=== PATIENT | female | born 1935 | race Caucasian/White ===

== ENCOUNTER → 2016-12-10 | Outpatient (CLI) | payer MEDICARE, OTHER | LOC: MW.CHFP 08:00 | CPT/HCPCS: G0463 ==

== ENCOUNTER 2017-01-30 13:57 | Emergency (ER) | payer MEDICARE, OTHER ==
--- NOTE | 2017-01-30 15:02 | EDM.PDOC ---
ED HPI ENT - General Chief Complaint: ENT Problem Stated Complaint: EAR ACHE Time Seen by Provider: 01/30/17 14:15 Source of Information: Reports: Patient History Limitations: Reports: No limitations - History of Present Illness INITIAL COMMENTS - FREE TEXT/NARRATIVE: History of present illness: [81-year-old female comes in with pain in left ear. Patient has had a known otitis externa which she is receiving treatment via her ENT. This includes oral antibiotic as well as antibiotic eardrops. Patient continues to have pain and is concerned that she perceives to have swelling in the inside of her mouth.] Review of systems: As per history of present illness and below otherwise all systems reviewed and negative. Past medical history: As per history of present illness and as reviewed below otherwise noncontributory. Surgical history: As per history of present illness and as reviewed below otherwise noncontributory. Social history: No reported history of drug or alcohol abuse. Family history: As per history of present illness and as reviewed below otherwise noncontributory. Physical exam: HEENT: Atraumatic, normocephalic, pupils reactive, negative for conjunctival pallor or scleral icterus, mucous membranes moist, throat clear, neck supple, nontender, trachea midline. Lungs: Clear to auscultation, breath sounds equal bilaterally, chest nontender. Heart: S1S2, regular, negative for clicks, rubs, or JVD. Abdomen: Soft, nondistended, nontender. Negative for masses or hepatosplenomegaly. Negative for costovertebral tenderness. Pelvis: Stable nontender. Genitourinary: Deferred. Rectal: Deferred. Extremities: Atraumatic, negative for cords or calf pain. Neurovascular unremarkable. Neuro: Awake, alert, oriented. Cranial nerves II through XII unremarkable. Cerebellum unremarkable. Motor and sensory unremarkable throughout. Exam nonfocal. Global assessment was benign no apparent abscesses and or edema noted. Patient does have a followup tomorrow with her ear nose and throat he continues to complain of pain we'll give a brief run of pain medication to assist patient to tolerate her protracted recovery of a an otitis externa. Diagnostics: [] Therapeutics: [] Impression: [unresolved otitis externa] Plan: [Pain medication, scheduled followup] Definitive disposition and diagnosis as appropriate pending reevaluation and review of above. - Related Data Allergies/ADRs: Allergies Allergy/AdvReac Type Severity Reaction Status Date / Time acetaminophen Allergy Other Verified 04/24/16 14:45 [From Darvocet-N] albuterol Allergy Other Verified 01/30/17 14:25 codeine Allergy Other Verified 01/30/17 14:25 gabapentin Allergy Other Verified 01/30/17 14:25 lisinopril Allergy Other Verified 01/30/17 14:25 meperidine HCl [From Demerol] Allergy Other Verified 01/30/17 14:25 oxycodone Allergy Other Verified 01/30/17 14:25 propoxyphene napsylate Allergy Other Verified 01/30/17 14:25 [From Darvocet-N] simvastatin Allergy Other Verified 01/30/17 14:25 Sulfa (Sulfonamide Allergy Other Verified 01/30/17 14:25 Antibiotics) Home Meds: Home Meds Aspirin [Halfprin] 81 mg PO DAILY 04/14/14 [History] Multivitamin with Minerals [Multiple Vitamin] 1 tab PO DAILY 04/14/14 [History] Past Medical History HEENT History: Reports: Cataract, Impaired vision, Other (see below) Other HEENT History: "dry ears" Cardiovascular History: Reports: Hypertension, Pacemaker, Prior cardiac arrest Respiratory History: Reports: None Gastrointestinal History: Reports: None Genitourinary History: Reports: None [employer] History: Reports: , Spontaneous Musculoskeletal History: Reports: RA Neurological History: Reports: None Psychiatric History: Reports: None Endocrine/Metabolic History: Reports: None Hematologic History: Reports: None Immunologic History: Reports: None Oncologic (Cancer) History: Reports: None Dermatologic History: Reports: None - Infectious Disease History Infectious Disease History: Reports: Chicken pox, Measles, Mumps, Pertussis ( whooping cough) - Past Surgical History Head Surgeries/Procedures: Reports: None HEENT Surgical History: Reports: Cataract surgery, Eye surgery, Tonsillectomy Cardiovascular Surgical History: Reports: Pacer GI Surgical History: Reports: Appendectomy Musculoskeletal Surgical History: Reports: Other (see below) Other Musculoskeletal Surgeries/Procedures:: back surgery Oncologic Surgical History: Reports: None Social & Family History - Family History Family Medical History: Noncontributory - Tobacco Use Smoking Status *Q: Never Smoker Second Hand Smoke Exposure: No - Caffeine Use Caffeine Use: Reports: Coffee, Tea Caffeine Use Comment: 3/day - Alcohol Use Days Per Week of Alcohol Use: 0 - Recreational Drug Use Recreational Drug Use: No Drug Use in Last 12 Months: No ED ROS ENT - Review of Systems Review Of Systems: See Below (History of present illness) ED EXAM, ENT - Physical Exam Exam: See Below (History of present illness) Course - Vital Signs Last Recorded V/S: Last Vital Signs Temp 37.1 C 01/30/17 13:59 Pulse 85 01/30/17 13:59 Resp 16 01/30/17 13:59 BP 143/78 H 01/30/17 13:59 Pulse Ox 98 01/30/17 13:59 Departure - Departure Time of Disposition: 15:01 Disposition: Home, Self-Care 01 Condition: good Clinical Impression: Otitis externa Qualifiers: Otitis externa type: unspecified type Laterality: left Chronicity: unspecified Qualified Code(s): H60.92 - Unspecified otitis externa, left ear Referrals: Bebe Banks MD [Primary Care Provider] - Forms: ED Department Discharge Additional Instructions: The following information is given to patients seen in the emergency department who are being discharged to home. This information is to outline your options for follow-up care. We provide all patients seen in our emergency department with a follow-up referral. The need for follow-up, as well as the timing and circumstances, are variable depending upon the specifics of your emergency department visit. If you don't have a primary care physician on staff, we will provide you with a referral. We always advise you to contact your personal physician following an emergency department visit to inform them of the circumstance of the visit and for follow-up with them and/or the need for any referrals to a consulting specialist. The emergency department will also refer you to a specialist when appropriate. This referral assures that you have the opportunity for follow-up care with a specialist. All of these measure are taken in an effort to provide you with optimal care, which includes your follow-up. Under all circumstances we always encourage you to contact your private physician who remains a resource for coordinating your care. When calling for follow-up care, please make the office aware that this follow-up is from your recent emergency room visit. If for any reason you are refused follow-up, please contact the [facility] Emergency Department at and asked to speak to the emergency department charge nurse. Continue to take your antibiotics as directed Continue taking your eardrops as directed May take pain medication prescribed as well as ibuprofen Take no more than 3200 mg of ibuprofen a day You have a scheduled followup with your ENT tomorrow, discussed with them plan of care as well as timelines for expected resolution Return to ED as needed as discussed
[2017-01-30 15:18] VITALS: BP 147/69
== END 2017-01-30 15:16 | disposition home or self-care (01) ==
LOC: MW.ED 13:57
DX: H60.92 Unspecified otitis externa, left ear (principal); I10 Essential (primary) hypertension; M06.9 Rheumatoid arthritis, unspecified; Z95.0 Presence of cardiac pacemaker; Z79.82 Long term (current) use of aspirin; Z88.2 Allergy status to sulfonamides; Z88.5 Allergy status to narcotic agent; Z88.6 Allergy status to analgesic agent; Z88.8 Allergy status to other drugs, medicaments and biological substances; Z98.49 Cataract extraction status, unspecified eye; Z90.49 Acquired absence of other specified parts of digestive tract; Z98.890 Other specified postprocedural states
CPT/HCPCS: 99282; 99283

== ENCOUNTER → 2017-01-31 | Outpatient (CLI) | payer MEDICARE, OTHER | LOC: MW.CHENT 08:00 | PROVIDERS: ATTEND Otolaryngology | DX: H60.90 Unspecified otitis externa, unspecified ear (principal); H60.00 Abscess of external ear, unspecified ear | CPT/HCPCS: 10160; 92504; G0463 ==

== ENCOUNTER 2017-02-03 21:21 | Emergency (ER) | payer MEDICARE, OTHER ==
--- NOTE | 2017-02-03 22:04 | EDM.PDOC ---
<Liliane Hummel - Last Filed: 02/03/17 21:58> ED HPI ENT - General Chief Complaint: ENT Problem Stated Complaint: PAIN LT EAR/PAIN THROAT Time Seen by Provider: 02/03/17 21:50 Source of Information: Reports: Patient History Limitations: Reports: No limitations - History of Present Illness INITIAL COMMENTS - FREE TEXT/NARRATIVE: HISTORY AND PHYSICAL: History of present illness: [Patient comes to the emergency room complaining of continued left ear pain. She 's been following the ENT specialist for the past 2 weeks for a boil to her left inner ear. This was apparently lanced earlier this week. She last saw the ENT this morning. She was advised to stop her current ear drops and start a new prescription. When patient went to the pharmacy to pick it up the new eardrops cost $220 which patient refused to fill. She was unable to reach the ENT this evening for a new or different prescription. She presents to the emergency room complaining of continued ear pain and occasional bloody drainage. Has not been prescribed any oral medications for antibiotics. Patient has a long list of medication allergies so has been taking ibuprofen every 3-4 hours in spite of being advised to not take as often by ENT.] Review of systems: As per history of present illness and below otherwise all systems reviewed and negative. Past medical history: As per history of present illness and as reviewed below otherwise noncontributory. Surgical history: As per history of present illness and as reviewed below otherwise noncontributory. Social history: No reported history of drug or alcohol abuse. Family history: As per history of present illness and as reviewed below otherwise noncontributory. Physical exam: HEENT: Atraumatic, normocephalic. Edentulous. mucous membranes moist, throat clear. Neck: Mildly shotty and tender L anterior cervical ymph nodes. Neck supple. Extremities: Atraumatic, negative for cords or calf pain. Neurovascular unremarkable. Neuro: Awake, alert, oriented. Cranial nerves II through XII unremarkable. Cerebellum unremarkable. Motor and sensory unremarkable throughout. Exam nonfocal. Diagnostics: [] Therapeutics: [] Impression: [] Plan: [] Definitive disposition and diagnosis as appropriate pending reevaluation and review of above. - Related Data Allergies/ADRs: Allergies Allergy/AdvReac Type Severity Reaction Status Date / Time acetaminophen Allergy Other Verified 02/03/17 21:35 [From Darvocet-N] albuterol Allergy Other Verified 02/03/17 21:35 codeine Allergy Other Verified 02/03/17 21:35 gabapentin Allergy Other Verified 02/03/17 21:35 lisinopril Allergy Other Verified 02/03/17 21:35 meperidine HCl [From Demerol] Allergy Other Verified 02/03/17 21:35 oxycodone Allergy Other Verified 02/03/17 21:35 propoxyphene napsylate Allergy Other Verified 02/03/17 21:35 [From Darvocet-N] simvastatin Allergy Other Verified 02/03/17 21:35 Sulfa (Sulfonamide Allergy Other Verified 02/03/17 21:35 Antibiotics) tramadol Allergy Headache Verified 02/03/17 21:36 Home Meds: Home Meds Aspirin [Halfprin] 81 mg PO DAILY 04/14/14 [History] Multivitamin with Minerals [Multiple Vitamin] 1 tab PO DAILY 04/14/14 [History] Past Medical History HEENT History: Reports: Cataract, Impaired vision, Other (see below) Other HEENT History: "dry ears" Cardiovascular History: Reports: Hypertension, Pacemaker, Prior cardiac arrest Respiratory History: Reports: None Gastrointestinal History: Reports: None Genitourinary History: Reports: None [employer] WORK[employer] History: Reports: , Spontaneous Musculoskeletal History: Reports: RA Neurological History: Reports: None Psychiatric History: Reports: None Endocrine/Metabolic History: Reports: None Hematologic History: Reports: None Immunologic History: Reports: None Oncologic (Cancer) History: Reports: None Dermatologic History: Reports: None - Infectious Disease History Infectious Disease History: Reports: None - Past Surgical History Head Surgeries/Procedures: Reports: None HEENT Surgical History: Reports: Cataract surgery, Eye surgery, Tonsillectomy Cardiovascular Surgical History: Reports: Pacer GI Surgical History: Reports: Appendectomy Musculoskeletal Surgical History: Reports: Other (see below) Other Musculoskeletal Surgeries/Procedures:: back surgery Oncologic Surgical History: Reports: None Social & Family History - Family History Family Medical History: Noncontributory - Tobacco Use Smoking Status *Q: Never Smoker Second Hand Smoke Exposure: No - Caffeine Use Caffeine Use: Reports: Coffee Caffeine Use Comment: 3/day - Alcohol Use Days Per Week of Alcohol Use: 0 - Recreational Drug Use Recreational Drug Use: No Drug Use in Last 12 Months: No Course - Vital Signs Last Recorded V/S: Last Vital Signs Temp 36.7 C 02/03/17 21:36 Pulse 88 02/03/17 21:36 Resp 16 02/03/17 21:36 BP 173/84 H 02/03/17 21:36 Pulse Ox 96 02/03/17 21:36 - Orders/Labs/Meds Meds: Medications Discontinued Medications Generic Name Dose Route Start Last Admin Trade Name Patsy PRN Reason Stop Dose Admin Ketorolac Tromethamine 60 mg 02/03/17 22:19 02/03/17 22:37 Toradol IM 02/03/17 22:20 60 mg ONETIME ONE Administration Departure - Departure Disposition: Home, Self-Care 01 Clinical Impression: Otitis externa Instructions: Earache Referrals: Bebe Banks MD [Primary Care Provider] - Forms: ED Department Discharge Additional Instructions: Continue antibiotics as prescribed and followup with Dr. Banks tomorrow. [facility] staff will call you in the morning for an appointment time and instruction. Continue your pain control regimen effort requires alteration discuss that with Dr. Banks and your DrValentin tomorrow in the morning. <Charlie Ugarte - Last Filed: 02/03/17 22:48> ED HPI ENT - General Source of Information: Reports: Patient History Limitations: Reports: No limitations - History of Present Illness INITIAL COMMENTS - FREE TEXT/NARRATIVE: Addendum: ER attending note Charlie Ugarte M.D. 81-year-old female with multiple narcotic and other medication intolerances, now presents emergent primary complaining of pain in her left ear. She has had ongoing treatment for an infection in her left external auditory canal that your nose and throat Dr. Dr. Bebe Banks. Patient was even seen by Dr. Banks in her office today and was prescribed eardrops. Patient attempted to get the ureter prescription because $220 and she was angry and feeling like this was a ridiculous march so she did not get it. She continues to have discomfort so she came to the emergency department. No fevers chills sweats or shaking chills. No headache or stiff neck. No local swelling or neck swelling. Patient has no new symptoms whatsoever. She is just requesting pain medicine when asked what she feels like she can tolerate she said "I don't care-- just give me something "patient appears to have a baseline of anger and dissatisfaction but she has no new acute condition that requires further intervention. Case discussed with Dr. Banks who is intimately familiar with this patient and her multiple allergies and she states that the patient is or even treated with by mouth antibiotics, further pharmacologic intervention is not necessary at this time and she will see the patient in the office in the morning. On patient's exam shows some drainage in her left EAC. No mastoid tenderness. No cervical adenopathy. Supple neck with normal painless range of motion and no asymmetry or soft tissue swelling. Patient is alert well groomed and seems slightly angry in general but it appears this may be the patient's baseline of general dissatisfaction. ED ROS ENT - Review of Systems Review Of Systems: See Below (Her history of present illness) ED EXAM, ENT - Physical Exam Exam: See Below (History of present illness) Departure - Departure Time of Disposition: 22:20 Condition: good
[2017-02-03] MEDS ORDERED: Ketorolac 60 MG/2 ML SDV IM ONE (22:19)
[2017-02-03 23:05] VITALS: BP 161/76
== END 2017-02-03 22:50 | disposition home or self-care (01) ==
LOC: MW.ED 21:21
DX: H60.92 Unspecified otitis externa, left ear (principal); Z79.82 Long term (current) use of aspirin; Z79.899 Other long term (current) drug therapy; Z95.0 Presence of cardiac pacemaker; Z98.49 Cataract extraction status, unspecified eye; Z90.49 Acquired absence of other specified parts of digestive tract; Z98.890 Other specified postprocedural states; Z88.2 Allergy status to sulfonamides; Z88.5 Allergy status to narcotic agent; Z88.8 Allergy status to other drugs, medicaments and biological substances; H60.90 Unspecified otitis externa, unspecified ear; H60.00 Abscess of external ear, unspecified ear
CPT/HCPCS: 92504; 96372; 99282; G0463; J1885; 99283

== ENCOUNTER → 2017-02-03 | Outpatient (CLI) | payer OTHER, MEDICARE | LOC: MW.CHENT 08:00 | PROVIDERS: ATTEND Otolaryngology | DX: H60.90 Unspecified otitis externa, unspecified ear (principal); H60.00 Abscess of external ear, unspecified ear | CPT/HCPCS: 92504; G0463 ==

== ENCOUNTER → 2017-02-07 | Outpatient (CLI) | payer MEDICARE, OTHER | LOC: MW.CHENT 13:58 | PROVIDERS: ATTEND Otolaryngology | DX: H92.03 Otalgia, bilateral (principal); H60.90 Unspecified otitis externa, unspecified ear | CPT/HCPCS: 87070; 87077; 87186 ==

== ENCOUNTER → 2017-02-09 | Outpatient (CLI) | payer MEDICARE, OTHER ==
[2017-02-09 10:03] LABS: CHLORIDE,CL 101 mmol/L (98-110); SODIUM,NA 135 mmol/L (136-146)
--- NOTE | 2017-02-10 09:29 | CT ---
EXAMINATION: CT temporal bones with and without contrast HISTORY: Left ear pain COMPARISON: None TECHNIQUE: Axial CT images obtained through the temporal bones before and following the administrati on of 50 mL of Isovue-370 in the left antecubital fossa. Coronal and sagittal reconstructions obtain ed. FINDINGS: The mastoid air cells and middle ears are clear bilaterally. The cochlea and semicircular canals appear normal. The internal auditory canals are symmetric the ossicles appear normal bilatera lly. The scutum appears preserved bilaterally. There is opacification of the left external auditory canal demonstrated which demonstrates mild enhancement. This does not appear to to extend to the tym panic membrane. There is no definite underlying erosion of the underlying osseous cortex. The tempor omandibular joints appear normal. The visualized intracranial compartments appear normal. The orbits and globes are symmetric. Bone mi neralization is normal. The visualized paranasal sinuses are grossly clear. IMPRESSION: 1. Enhancing mass involving the mid to the external aspect of the left external auditory canal witho ut erosion of the underlying bony cortex.
== END ==
LOC: MW.CHFP 09:23
PROVIDERS: ATTEND Emergency Medicine
DX: H92.02 Otalgia, left ear (principal); I10 Essential (primary) hypertension; H93.8X2 Other specified disorders of left ear
CPT/HCPCS: 36415; 70482; 80048; G0463

== ENCOUNTER → 2017-02-25 | Outpatient (CLI) | payer MEDICARE, OTHER | LOC: MW.CHFP 08:00 | PROVIDERS: ATTEND Emergency Medicine | DX: H60.90 Unspecified otitis externa, unspecified ear (principal); H92.02 Otalgia, left ear | CPT/HCPCS: G0463 ==

== ENCOUNTER → 2017-03-04 | Outpatient (CLI) | payer OTHER, MEDICARE | LOC: MW.CHFP 14:09 | PROVIDERS: ATTEND Emergency Medicine | DX: H92.02 Otalgia, left ear (principal); H93.8X2 Other specified disorders of left ear | CPT/HCPCS: 36415; 85025; 85652; 86140; G0463 ==

== ENCOUNTER → 2017-03-11 | Outpatient (CLI) | payer OTHER, MEDICARE | LOC: MW.CHFP 08:00 | PROVIDERS: ATTEND Emergency Medicine | DX: H93.8X2 Other specified disorders of left ear (principal); H92.02 Otalgia, left ear | CPT/HCPCS: G0463 ==

== ENCOUNTER 2019-03-14 13:04 | Observation (INO) | payer MEDICARE, OTHER ==
[2019-03-14] MEDS ORDERED: Sodium Chloride 0.9% 10 ML Syringe FLUSH PRN (13:30)
[2019-03-14] MEDS ORDERED: Sodium Chloride 0.9% 2.5 ML Syringe FLUSH PRN (13:30)
--- NOTE | 2019-03-14 13:33 | EDM.PDOC ---
ED HPI GENERAL MEDICAL PROBLEM - General Chief Complaint: Cardiovascular Problem Stated Complaint: HIGH B/P Time Seen by Provider: 03/14/19 13:09 Source of Information: Reports: Patient History Limitations: Reports: No Limitations - History of Present Illness INITIAL COMMENTS - FREE TEXT/NARRATIVE: History of present illness: []Patient has a history of high blood pressure and noted that her blood pressure climbing over an hour to 190s over 90. From 12:30 to 1 today she also had abdominal pain that was radiating to her epigastrium and mid chest. Has had 3 heart attacks in the past and states that this is similar to how it felt during one of her heart attacks. Patient did not have any chest pain and does not have any chest pain now. She did state that she felt a dizzy and lightheaded. Patient's symptom lasted approximately 15-20 minutes. Patient states she has chronic lower abdominal pain and noted that her pants were hard to put on today to swelling. Review of systems: As per history of present illness and below otherwise all systems reviewed and negative. Past medical history: As per history of present illness and as reviewed below otherwise noncontributory. Surgical history: As per history of present illness and as reviewed below otherwise noncontributory. Social history: No reported history of drug or alcohol abuse. Family history: As per history of present illness and as reviewed below otherwise noncontributory. Physical exam: General: Well developed, well nourished in NAD HEENT: Atraumatic, normocephalic, pupils reactive, negative for conjunctival pallor or scleral icterus, mucous membranes moist, throat clear, neck supple, nontender, trachea midline. Lungs: Clear to auscultation, breath sounds equal bilaterally, chest nontender. Heart: S1S2, regular, negative for clicks, rubs, or JVD. Abdomen: NABS, Soft, nondistended, mild diffuse tenderness, no rebound or guarding. Negative for masses or hepatosplenomegaly. Negative for costovertebral tenderness. Pelvis: Stable nontender. Genitourinary: Deferred. Rectal: Deferred. Extremities: Atraumatic, negative for cords or calf pain. Neurovascular unremarkable. Neuro: Awake, alert, oriented. Cranial nerves II through XII unremarkable. Cerebellum unremarkable. Motor and sensory unremarkable throughout. Exam nonfocal. Skin:warm and dry Diagnostics: EKG, CBC, chemistry, troponin, chest x-ray Therapeutics: None ED Course: Stable Impression: Uncontrolled Hypertension, chest pain Prescriptions: Plan: Admit for arms rule out OK Definitive disposition and diagnosis as appropriate pending reevaluation and review of above. abdominal Pain Score (Numeric/FACES): 2 - Related Data Allergies Allergy/AdvReac Type Severity Reaction Status Date / Time acetaminophen Allergy Other Verified 02/03/17 21:35 [From Darvocet-N] albuterol Allergy Other Verified 02/03/17 21:35 codeine Allergy Other Verified 02/03/17 21:35 gabapentin Allergy Other Verified 02/03/17 21:35 lisinopril Allergy Other Verified 02/03/17 21:35 meperidine HCl [From Demerol] Allergy Other Verified 02/03/17 21:35 oxycodone Allergy Other Verified 02/03/17 21:35 propoxyphene napsylate Allergy Other Verified 02/03/17 21:35 [From Darvocet-N] simvastatin Allergy Other Verified 02/03/17 21:35 Sulfa (Sulfonamide Allergy Other Verified 02/03/17 21:35 Antibiotics) tramadol Allergy Headache Verified 02/03/17 21:36 Home Meds: Home Meds Aspirin [Halfprin] 81 mg PO DAILY 04/14/14 [History] Multivitamin with Minerals [Multiple Vitamin] 1 tab PO DAILY 04/14/14 [History] Losartan [Cozaar] 12.5 mg PO BID 03/14/19 [History] Metoprolol Succinate [Toprol Xl] 12.5 mg PO BID 03/14/19 [History] Past Medical History HEENT History: Reports: Cataract, Impaired Vision, Other (See Below) Other HEENT History: "dry ears" Cardiovascular History: Reports: Hypertension, [place], Pacemaker, Prior Cardiac Arrest, Stents Other Cardiovascular History: (3) [place] Respiratory History: Reports: None Gastrointestinal History: Reports: None Genitourinary History: Reports: None 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: , 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 Musculoskeletal History: Reports: RA Neurological History: Reports: None Psychiatric History: Reports: None Endocrine/Metabolic History: Reports: None Hematologic History: Reports: None Immunologic History: Reports: None Oncologic (Cancer) History: Reports: None Dermatologic History: Reports: None - Infectious Disease History Infectious Disease History: Reports: Chicken Pox, Measles, Mumps - Past Surgical History Head Surgeries/Procedures: Reports: None HEENT Surgical History: Reports: Cataract Surgery, Eye Surgery, Tonsillectomy GI Surgical History: Reports: Appendectomy Musculoskeletal Surgical History: Reports: Other (See Below) Oncologic Surgical History: Reports: None Social & Family History - Family History Family Medical History: Noncontributory - Tobacco Use Smoking Status *Q: Unknown Ever Smoked - Caffeine Use Caffeine Use: Reports: Coffee Caffeine Use Comment: 3/day - Recreational Drug Use Recreational Drug Use: No ED ROS GENERAL - Review of Systems Review Of Systems: ROS reveals no pertinent complaints other than HPI. ED EXAM, GENERAL - Physical Exam Exam: See Below (See history of present illness) Course - Vital Signs Last Recorded V/S: Last Vital Signs Temp 97.6 F 03/14/19 13:18 Pulse 70 03/14/19 13:18 Resp 18 03/14/19 13:18 BP 174/72 H 03/14/19 13:18 Pulse Ox 96 03/14/19 13:18 - Orders/Labs/Meds Orders: Active Orders 24 hr Category Date Time Status Patient Status [ADT] Stat ADT 03/14/19 14:06 Ordered EKG Documentation Completion [RC] STAT Care 03/14/19 13:30 Active Sodium Chloride 0.9% [Saline Flush] Med 03/14/19 13:30 Active 10 ml FLUSH ASDIRECTED PRN Sodium Chloride 0.9% [Saline Flush] Med 03/14/19 13:30 Active 2.5 ml FLUSH ASDIRECTED PRN Saline Lock Insert [OM.PC] Stat Oth 03/14/19 13:30 Ordered Medication Orders Sodium Chloride (Saline Flush) 10 ml FLUSH ASDIRECTED PRN PRN Reason: Keep Vein Open Sodium Chloride (Saline Flush) 2.5 ml FLUSH ASDIRECTED PRN PRN Reason: Keep Vein Open Labs: Laboratory Tests 03/14/19 03/14/19 Range/Units 13:13 13:13 WBC 9.48 (4.0-11.0) K/uL RBC 4.91 (4.30-5.90) M/uL Hgb 14.8 (12.0-16.0) g/dL Hct 44.2 (36.0-46.0) % MCV 90.0 (80.0-98.0) fL MCH 30.1 (27.0-32.0) pg MCHC 33.5 (31.0-37.0) g/dL RDW Std Deviation 44.9 (28.0-62.0) fl RDW Coeff of Hari 14 (11.0-15.0) % Plt Count 222 (150-400) K/uL MPV 9.70 (7.40-12.00) fL Neut % (Auto) 79.1 (48.0-80.0) % Lymph % (Auto) 13.2 L (16.0-40.0) % [place] % (Auto) 6.4 (0.0-15.0) % Eos % (Auto) 1.2 (0.0-7.0) % Baso % (Auto) 0.1 (0.0-1.5) % Neut # (Auto) 7.5 H (1.4-5.7) K/uL Lymph # (Auto) 1.3 (0.6-2.4) K/uL [place] # (Auto) 0.6 (0.0-0.8) K/uL Eos # (Auto) 0.1 (0.0-0.7) K/uL Baso # (Auto) 0.0 (0.0-0.1) K/uL Nucleated RBC % 0.0 /100WBC Nucleated RBCs # 0 K/uL Sodium 136 (136-145) mmol/L Potassium 4.3 (3.5-5.1) mmol/L Chloride 100 (98-107) mmol/L Carbon Dioxide 24.0 (21.0-32.0) mmol/L BUN 13 (7.0-18.0) mg/dL Creatinine 0.7 (0.6-1.0) mg/dL Est Cr Clr Drug Dosing 50.55 mL/min Estimated GFR (MDRD) > 60.0 ml/min Glucose 100 (74-106) mg/dL Calcium 9.3 (8.5-10.1) mg/dL Total Bilirubin 0.6 (0.2-1.0) mg/dL AST 30 (15-37) IU/L ALT 36 (14-63) IU/L Alkaline Phosphatase 41 L (46-116) U/L Troponin I < 0.050 (0.000-0.056) ng/mL Total Protein 7.0 (6.4-8.2) g/dL Albumin 3.9 (3.4-5.0) g/dL Globulin 3.1 (2.6-4.0) g/dL Albumin/Globulin Ratio 1.3 (0.9-1.6) Meds: Medications Generic Name Dose Route Start Last Admin Trade Name Freq PRN Reason Stop Dose Admin Sodium Chloride 10 ml 03/14/19 13:30 Saline Flush FLUSH ASDIRECTED PRN Keep Vein Open Sodium Chloride 2.5 ml 03/14/19 13:30 Saline Flush FLUSH ASDIRECTED PRN Keep Vein Open Departure - Departure Time of Disposition: 14:07 Disposition: Refer to Observation Condition: Good Clinical Impression: Chest pain Qualifiers: Chest pain type: unspecified Qualified Code(s): R07.9 - Chest pain, unspecified Referrals: Aneudy Wilde MD [Primary Care Provider] - Forms: ED Department Discharge - My Orders Last 24 Hours: My Active Orders 03/14/19 13:30 EKG Documentation Completion [RC] STAT Sodium Chloride 0.9% [Saline Flush] 10 ml FLUSH ASDIRECTED PRN Sodium Chloride 0.9% [Saline Flush] 2.5 ml FLUSH ASDIRECTED PRN Saline Lock Insert [OM.PC] Stat 03/14/19 14:06 Patient Status [ADT] Stat - Assessment/Plan Last 24 Hours: My Active Orders 03/14/19 13:30 EKG Documentation Completion [RC] STAT Sodium Chloride 0.9% [Saline Flush] 10 ml FLUSH ASDIRECTED PRN Sodium Chloride 0.9% [Saline Flush] 2.5 ml FLUSH ASDIRECTED PRN Saline Lock Insert [OM.PC] Stat 03/14/19 14:06 Patient Status [ADT] Stat
--- NOTE | 2019-03-14 13:51 | CR ---
EXAMINATION: Portable chest radiograph. HISTORY: Shortness of breath. Comparison: 09/22/2014. FINDINGS: The trachea is midline. The cardiomediastinal silhouette is stable. Chronic interstitial prominence and hyperinflation. Left-sided ICD is noted. Aortic calcifications. No focal consolidation, pleural effusion, or pneumothorax. Osseous structures appear osteopenic. Degenerative changes noted within the thoracic spine and shoulders. IMPRESSION: No acute cardiopulmonary process.
[2019-03-14 14:01] LABS: CHLORIDE,CL 100 mmol/L (98-107); SODIUM,NA 136 mmol/L (136-145)
[2019-03-14] MEDS ORDERED: Aspirin 325 MG Tab PO ONE (14:11)
--- NOTE | 2019-03-14 17:12 | PCM.HP ---
H&P History of Present Illness - General Date of Service: 03/15/19 Admit Problem/Dx: Admission Diagnosis/Problem Admission Diagnosis/Problem Chest pain Source of Information: Patient History Limitations: Reports: No Limitations - History of Present Illness Initial Comments - Free Text/Narative: The patient is an 83-year-old lady who had presented to the emergency department with a history of hypertension. The patient had noticed that her blood pressure have been markedly elevated in the 190s systolic her to presentation. The patient says that she is had 3 heart attacks in the past and she also had some vague chest pain with this as well. Patient has had some epigastric abdominal pain which had radiated into her chest. She said that this is not the same as her previous heart attacks. The patient says that her symptoms lasted approximately half an hour. The patient also has a history of chronic abdominal pain and she says that her pants were difficult to buckle up without increasing her abdominal pain. The patient has denied any fever or chills. She has had some vomiting but no nausea. Patient reports that she does have some dizziness and lightheadedness. Onset of Symptoms: Reports: Gradual Duration of Symptoms: Reports: Day(s): Location: Reports: Head, Neck Quality: Reports: Ache, Throbbing Severity: Moderate Improves with: Reports: None Worsens with: Reports: None Associated Symptoms: Reports: No Other Symptoms abdominal Pain Score (Numeric/FACES): 2 - Related Data Allergies/Adverse Reactions: Allergies Allergy/AdvReac Type Severity Reaction Status Date / Time albuterol Allergy Other Verified 02/03/17 21:35 codeine Allergy Other Verified 02/03/17 21:35 gabapentin Allergy Other Verified 02/03/17 21:35 lisinopril Allergy Other Verified 02/03/17 21:35 meperidine HCl [From Demerol] Allergy Other Verified 02/03/17 21:35 oxycodone Allergy Other Verified 02/03/17 21:35 propoxyphene napsylate Allergy Other Verified 02/03/17 21:35 [From Darvocet-N] simvastatin Allergy Other Verified 02/03/17 21:35 Sulfa (Sulfonamide Allergy Other Verified 02/03/17 21:35 Antibiotics) tramadol Allergy Headache Verified 02/03/17 21:36 Home Medications: Home Meds Aspirin [Halfprin] 81 mg PO DAILY 04/14/14 [History] Multivitamin with Minerals [Multiple Vitamin] 1 tab PO DAILY 04/14/14 [History] Losartan [Cozaar] 12.5 mg PO BID 03/14/19 [History] Metoprolol Succinate [Toprol Xl] 12.5 mg PO BID 03/14/19 [History] Past Medical History HEENT History: Reports: Cataract, Impaired Vision, Other (See Below) Other HEENT History: "dry ears" Cardiovascular History: Reports: Hypertension, [place], Pacemaker, Prior Cardiac Arrest, Stents Other Cardiovascular History: (3) [place] Respiratory History: Reports: None Gastrointestinal History: Reports: None Genitourinary History: Reports: None 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: , 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 Musculoskeletal History: Reports: Osteoarthritis, RA Neurological History: Reports: None Psychiatric History: Reports: None Endocrine/Metabolic History: Reports: None Hematologic History: Reports: None Immunologic History: Reports: None Oncologic (Cancer) History: Reports: None Dermatologic History: Reports: None - Infectious Disease History Infectious Disease History: Reports: Chicken Pox, Measles, Mumps - Past Surgical History Head Surgeries/Procedures: Reports: None HEENT Surgical History: Reports: Cataract Surgery, Eye Surgery, Tonsillectomy GI Surgical History: Reports: Appendectomy Musculoskeletal Surgical History: Reports: Other (See Below) Oncologic Surgical History: Reports: None Social & Family History - Family History Family Medical History: Noncontributory - Tobacco Use Smoking Status *Q: Never Smoker Second Hand Smoke Exposure: No - Caffeine Use Caffeine Use: Reports: Coffee, Tea Caffeine Use Comment: 3/day - Recreational Drug Use Recreational Drug Use: No H&P Review of Systems - Review of Systems: Review Of Systems: See Below General: Reports: Weakness HEENT: Reports: Headaches Pulmonary: Reports: No Symptoms Cardiovascular: Reports: Chest Pain Gastrointestinal: Reports: Abdominal Pain, Vomiting Genitourinary: Reports: No Symptoms Musculoskeletal: Reports: Neck Pain, Hand Pain, Joint Pain Skin: Reports: No Symptoms Psychiatric: Reports: No Symptoms Neurological: Reports: No Symptoms Hematologic/Lymphatic: Reports: No Symptoms Immunologic: Reports: No Symptoms Exam - Exam Exam: See Below - Vital Signs Vital Signs: Last Vital Signs Temp 36.8 C 03/14/19 15:56 Pulse 67 03/14/19 15:56 Resp 15 03/14/19 15:56 BP 167/66 H 03/14/19 15:56 Pulse Ox 97 03/14/19 15:56 Weight: 50.439 kg - Exam Quality Assessment: No: Supplemental Oxygen General: Alert, Oriented, Cooperative HEENT: Conjunctiva Clear, EACs Clear, EOMI, Nares Patent, Pupils Equal, PERRLA. No: Mucosa Moist & [place] (Dry) Neck: Supple (Non-tender), Trachea Midline Lungs: Clear to Auscultation, Normal Respiratory Effort Cardiovascular: Regular Rate, Regular Rhythm GI/Abdominal Exam: Normal Bowel Sounds, Soft, Non-Tender, No Distention Back Exam: Normal Inspection (Age appropriate). No: Vertebral Tenderness Extremities: Joint Swelling, Limited Range of Motion Skin: Warm, Dry, Intact Neurological: Cranial Nerves Intact Psychiatric: Alert, Normal Affect, Normal Mood - Patient Data Lab Results Last 24 hrs: Laboratory Results - last 24 hr 03/14/19 03/14/19 Range/Units 13:13 13:13 WBC 9.48 (4.0-11.0) K/uL RBC 4.91 (4.30-5.90) M/uL Hgb 14.8 (12.0-16.0) g/dL Hct 44.2 (36.0-46.0) % MCV 90.0 (80.0-98.0) fL MCH 30.1 (27.0-32.0) pg MCHC 33.5 (31.0-37.0) g/dL RDW Std Deviation 44.9 (28.0-62.0) fl RDW Coeff of Hari 14 (11.0-15.0) % Plt Count 222 (150-400) K/uL MPV 9.70 (7.40-12.00) fL Neut % (Auto) 79.1 (48.0-80.0) % Lymph % (Auto) 13.2 L (16.0-40.0) % [place] % (Auto) 6.4 (0.0-15.0) % Eos % (Auto) 1.2 (0.0-7.0) % Baso % (Auto) 0.1 (0.0-1.5) % Neut # (Auto) 7.5 H (1.4-5.7) K/uL Lymph # (Auto) 1.3 (0.6-2.4) K/uL [place] # (Auto) 0.6 (0.0-0.8) K/uL Eos # (Auto) 0.1 (0.0-0.7) K/uL Baso # (Auto) 0.0 (0.0-0.1) K/uL Nucleated RBC % 0.0 /100WBC Nucleated RBCs # 0 K/uL Sodium 136 (136-145) mmol/L Potassium 4.3 (3.5-5.1) mmol/L Chloride 100 (98-107) mmol/L Carbon Dioxide 24.0 (21.0-32.0) mmol/L BUN 13 (7.0-18.0) mg/dL Creatinine 0.7 (0.6-1.0) mg/dL Est Cr Clr Drug Dosing 50.55 mL/min Estimated GFR (MDRD) > 60.0 ml/min Glucose 100 (74-106) mg/dL Calcium 9.3 (8.5-10.1) mg/dL Total Bilirubin 0.6 (0.2-1.0) mg/dL AST 30 (15-37) IU/L ALT 36 (14-63) IU/L Alkaline Phosphatase 41 L (46-116) U/L Troponin I < 0.050 (0.000-0.056) ng/mL Total Protein 7.0 (6.4-8.2) g/dL Albumin 3.9 (3.4-5.0) g/dL Globulin 3.1 (2.6-4.0) g/dL Albumin/Globulin Ratio 1.3 (0.9-1.6) Result Diagrams: 03/15/19 06:00 03/15/19 06:00 - Problem List (1) Chest pain SNOMED Code(s): 52413363 ICD Code: R07.9 - CHEST PAIN, UNSPECIFIED Status: Resolved Priority: High Current Visit: Yes (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 SNOMED Code(s): 179355625 ICD Code: M47.812 - SPONDYLOSIS W/O MYELOPATHY OR RADICULOPATHY, CERVICAL REGION; M79.2 - NEURALGIA AND NEURITIS, UNSPECIFIED Status: Chronic Priority : Medium Current Visit: Yes (3) Osteoarthritis involving multiple joints on both sides of body SNOMED Code(s): 443130296 ICD Code: M15.9 - POLYOSTEOARTHRITIS, UNSPECIFIED Status: Chronic Priority: Medium Current Visit: Yes (4) Acute coronary syndrome SNOMED Code(s): 934973981 ICD Code: I24.9 - ACUTE ISCHEMIC HEART DISEASE, UNSPECIFIED Status: Acute Priority: High Current Visit: Yes Problem List Initiated/Reviewed/Updated: Yes Orders Last 24hrs: Active Orders 24 hr Category Date Time Status Patient Status [ADT] Stat ADT 03/14/19 14:06 Active EKG Documentation Completion [RC] STAT Care 03/14/19 13:30 Active Sodium Chloride 0.9% [Saline Flush] Med 03/14/19 13:30 Active 10 ml FLUSH ASDIRECTED PRN Sodium Chloride 0.9% [Saline Flush] Med 03/14/19 13:30 Active 2.5 ml FLUSH ASDIRECTED PRN Saline Lock Insert [OM.PC] Stat Oth 03/14/19 13:30 Ordered Medication Orders Sodium Chloride (Saline Flush) 10 ml FLUSH ASDIRECTED PRN PRN Reason: Keep Vein Open Sodium Chloride (Saline Flush) 2.5 ml FLUSH ASDIRECTED PRN PRN Reason: Keep Vein Open Assessment/Plan Comment:: The patient is an 83-year-old lady who has been admitted secondary to concern for anginal equivalents with regards to vague chest pain and upper abdominal pain. The patient has a history of coronary artery disease with 3 previous MIs. I've ordered troponins every 6 hours 2. Patient also be kept on heart healthy diet. The patient also has as a primary concern for headache as well as her neck pain. She does have rather severe multi-joint osteoarthritis. She'll likely need to have the CT scan later. The patient has been encouraged to ambulate. I've also ordered repeat laboratory studies for the morning. The patient will kept on DVT prophylaxis consisting of Lovenox. The patient should be appropriate for discharge tomorrow or 2 days.
[2019-03-14] MEDS ORDERED: oxyCODONE 5 MG Tab PO PRN (17:58)
[2019-03-14] MEDS ORDERED: Enoxaparin 40 MG/0.4 ML Syringe SUBCUT SCH (18:00)
[2019-03-14] MEDS: Acetaminophen 325 MG Tab PO PRN (18:35)
[2019-03-14] MEDS: Metoprolol Succinate 25 MG Tab.ER PO SCH (20:17)
[2019-03-14] MEDS: Losartan 50 MG Tab PO SCH (20:18)
[2019-03-15 06:50] LABS: CHLORIDE,CL 106 mmol/L (98-107); SODIUM,NA 142 mmol/L (136-145)
[2019-03-15] MEDS: Losartan 50 MG Tab PO SCH (08:17)
[2019-03-15] MEDS: Metoprolol Succinate 25 MG Tab.ER PO SCH (08:18)
[2019-03-15] MEDS: Acetaminophen 325 MG Tab PO PRN (08:20)
[2019-03-15] MEDS ORDERED: Aspirin 81 MG Tab.EC PO SCH (09:00)
[2019-03-15 12:50] VITALS: BP 159/69
--- NOTE | 2019-03-15 14:42 | CT ---
EXAMINATION: CT cervical spine HISTORY: Rule out stenosis COMPARISON: 01/16/2018 TECHNIQUE: Axial CT imaging obtained through the cervical spine without contrast. Coronal and sagittal reconstructions obtained. FINDINGS: Minimal anterolisthesis of C3 on C4. Otherwise the cervical spinal alignment is normal. Vertebral body heights appear maintained. Bone mineralization is grossly normal. Facet arthritic changes noted throughout the cervical spine. This case narrowing noted from C5 to T1. There is no fracture or acute osseous abnormality. Paravertebral soft tissues appear normal. Mild carotid artery calcifications. Lung apices are clear. C2-C3: Grossly unremarkable. C3-C4: Small diffuse pseudobulge without significant spinal canal stenosis. Mild bilateral neural foraminal stenosis. C4-C5: Moderate diffuse osteophyte disc complex with at least moderate spinal canal stenosis. Moderate bilateral neural foraminal stenosis. C5-C6: Moderate diffuse osteophyte disc complex with at least moderate spinal canal stenosis. Moderate bilateral neural foraminal stenosis. C6-C7: Moderate diffuse disc bulge asymmetric to the right with at least moderate spinal canal stenosis. Moderate to severe right and moderate left neural foraminal stenosis. C7-T1: Mild anterolisthesis. No significant spinal canal or neural foraminal stenosis. IMPRESSION: 1. Multilevel degenerative disc disease and degenerative changes noted throughout the cervical spine with individual details above.
--- NOTE | 2019-03-15 15:51 | PCM.DCSUM1 ---
Discharge Summary - Hospital Course Diagnosis: Stroke: No - Discharge Data Discharge Date: 03/15/19 Discharge Disposition: Home, Self-Care 01 Condition: Good - Discharge Diagnosis/Problem(s) (1) Chest pain SNOMED Code(s): 96222045 ICD Code: R07.9 - CHEST PAIN, UNSPECIFIED Status: Resolved Priority: High Current Visit: Yes (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 SNOMED Code(s): 833485604 ICD Code: M47.812 - SPONDYLOSIS W/O MYELOPATHY OR RADICULOPATHY, CERVICAL REGION; M79.2 - NEURALGIA AND NEURITIS, UNSPECIFIED Status: Chronic Priority : Medium Current Visit: Yes (3) Osteoarthritis involving multiple joints on both sides of body SNOMED Code(s): 882221615 ICD Code: M15.9 - POLYOSTEOARTHRITIS, UNSPECIFIED Status: Chronic Priority: Medium Current Visit: Yes (4) Acute coronary syndrome SNOMED Code(s): 060648820 ICD Code: I24.9 - ACUTE ISCHEMIC HEART DISEASE, UNSPECIFIED Status: Acute Priority: High Current Visit: Yes - Patient Summary/Data Hospital Course: The patient is an 83-year-old lady who had presented to the emergency department out of concern for hypertension and was also noted to have some atypical chest pain. The patient's blood pressure had been elevated around 190 mmHg systolic at her presentation. Patient says that she has had 3 heart attacks in the past. Her primary concern over the past couple of days have been neck pain with associated headache. Patient's chest pain had essentially resolved. On examination the patient was noted to have severe arthritis of her minor and major joints. This was noted to be bilaterally. The patient on examination also had some crepitus of her C-spine. A CT scan was obtained of the patient's cervical spine. An MRI was not possible as the patient had a pacemaker. In addition to the cervical spine pain the patient had a headache with dizziness. CT scan obtained showed that the patient had moderately diffuse osteophytic disc complex with moderate spinal stenosis at C4-C5, C5-C6 C6-C7 with severe right to moderate left neural foraminal stenosis. As a result of the patient's pain is been recommended that she follow-up with neurosurgery as an outpatient for possible treatment. The patient also had 3 sets of troponins which were nondetectable. Continue monitoring had revealed no specific cardiac event. The patient otherwise has been tolerating her diet. She is recommended continue with her heart healthy diet as tolerated. The patient is also to have activity as tolerated. She has been recommended to follow-up with her primary care physician as well as neurology as scheduled. She has been hemodynamically stable and she is discharged from acute hospitalization with recommendations listed above. - Patient Instructions Diet: Heart Healthy Diet Activity: As Tolerated Notify Provider of: Increased Pain - Discharge Plan *PRESCRIPTION DRUG MONITORING PROGRAM REVIEWED*: No *COPY OF PRESCRIPTION DRUG MONITORING REPORT IN PATIENT LUISA: No Home Medications: Home Meds Aspirin [Halfprin] 81 mg PO DAILY 04/14/14 [History] Multivitamin with Minerals [Multiple Vitamin] 1 tab PO DAILY 04/14/14 [History] Losartan [Cozaar] 12.5 mg PO BID 03/14/19 [History] Metoprolol Succinate [Toprol Xl] 12.5 mg PO BID 03/14/19 [History] Oxygen Therapy Mode: Room Air Patient Handouts: Spinal Stenosis, [id number] Forms: ED Department Discharge Referrals: Binh Summers MD [Resident] - 03/27/19 2:30 pm - Discharge Summary/Plan Comment DC Time >30 min.: Yes - General Info Date of Service: 03/15/19 Admission Dx/Problem (Free Text: Admission Diagnosis/Problem Admission Diagnosis/Problem Chest pain, cervicogenic cephalgia Functional Status: Reports: Pain Controlled - Review of Systems General: Reports: No Symptoms HEENT: Reports: No Symptoms Pulmonary: Reports: No Symptoms Cardiovascular: Reports: No Symptoms Gastrointestinal: Reports: No Symptoms Genitourinary: Reports: No Symptoms Musculoskeletal: Reports: Neck Pain Skin: Reports: No Symptoms Neurological: Reports: No Symptoms Psychiatric: Reports: No Symptoms - Patient Data Vitals - Most Recent: Last Vital Signs Temp 36.7 C 03/15/19 12:00 Pulse 78 03/15/19 12:00 Resp 18 03/15/19 12:00 BP 159/69 H 03/15/19 12:00 Pulse Ox 95 03/15/19 12:00 Weight - Most Recent: 50.439 kg I&O - Last 24 hours: Intake & Output 03/15/19 03/15/19 03/15/19 06:59 14:59 22:59 Intake Total 650 120 Output Total 1100 Balance -450 120 Lab Results - Last 24 hrs: Laboratory Results - last 24 hr 03/14/19 03/15/19 03/15/19 Range/Units 18:28 00:50 06:00 WBC 6.00 (4.0-11.0) K/uL RBC 4.76 (4.30-5.90) M/uL Hgb 14.3 (12.0-16.0) g/dL Hct 43.0 (36.0-46.0) % MCV 90.3 (80.0-98.0) fL MCH 30.0 (27.0-32.0) pg MCHC 33.3 (31.0-37.0) g/dL RDW Std Deviation 44.6 (28.0-62.0) fl RDW Coeff of Hari 14 (11.0-15.0) % Plt Count 186 (150-400) K/uL MPV 9.50 (7.40-12.00) fL Neut % (Auto) 53.8 (48.0-80.0) % Lymph % (Auto) 32.5 (16.0-40.0) % [place] % (Auto) 10.7 (0.0-15.0) % Eos % (Auto) 2.7 (0.0-7.0) % Baso % (Auto) 0.3 (0.0-1.5) % Neut # (Auto) 3.2 (1.4-5.7) K/uL Lymph # (Auto) 2.0 (0.6-2.4) K/uL [place] # (Auto) 0.6 (0.0-0.8) K/uL Eos # (Auto) 0.2 (0.0-0.7) K/uL Baso # (Auto) 0.0 (0.0-0.1) K/uL Nucleated RBC % 0.0 /100WBC Nucleated RBCs # 0 K/uL Sodium (136-145) mmol/L Potassium (3.5-5.1) mmol/L Chloride (98-107) mmol/L Carbon Dioxide (21.0-32.0) mmol/L BUN (7.0-18.0) mg/dL Creatinine (0.6-1.0) mg/dL Est Cr Clr Drug Dosing mL/min Estimated GFR (MDRD) ml/min Glucose (74-106) mg/dL Calcium (8.5-10.1) mg/dL Total Bilirubin (0.2-1.0) mg/dL AST (15-37) IU/L ALT (14-63) IU/L Alkaline Phosphatase (46-116) U/L Troponin I < 0.050 < 0.050 (0.000-0.056) ng/mL Total Protein (6.4-8.2) g/dL Albumin (3.4-5.0) g/dL Globulin (2.6-4.0) g/dL Albumin/Globulin Ratio (0.9-1.6) / Range/Units 06:00 WBC (4.0-11.0) K/uL RBC (4.30-5.90) M/uL Hgb (12.0-16.0) g/dL Hct (36.0-46.0) % MCV (80.0-98.0) fL MCH (27.0-32.0) pg MCHC (31.0-37.0) g/dL RDW Std Deviation (28.0-62.0) fl RDW Coeff of Hari (11.0-15.0) % Plt Count (150-400) K/uL MPV (7.40-12.00) fL Neut % (Auto) (48.0-80.0) % Lymph % (Auto) (16.0-40.0) % [place] % (Auto) (0.0-15.0) % Eos % (Auto) (0.0-7.0) % Baso % (Auto) (0.0-1.5) % Neut # (Auto) (1.4-5.7) K/uL Lymph # (Auto) (0.6-2.4) K/uL [place] # (Auto) (0.0-0.8) K/uL Eos # (Auto) (0.0-0.7) K/uL Baso # (Auto) (0.0-0.1) K/uL Nucleated RBC % /100WBC Nucleated RBCs # K/uL Sodium 142 (136-145) mmol/L Potassium 5.2 H (3.5-5.1) mmol/L Chloride 106 (98-107) mmol/L Carbon Dioxide 29.4 (21.0-32.0) mmol/L BUN 17 (7.0-18.0) mg/dL Creatinine 0.8 (0.6-1.0) mg/dL Est Cr Clr Drug Dosing 43.92 mL/min Estimated GFR (MDRD) > 60.0 ml/min Glucose 86 (74-106) mg/dL Calcium 9.1 (8.5-10.1) mg/dL Total Bilirubin 0.5 (0.2-1.0) mg/dL AST 30 (15-37) IU/L ALT 36 (14-63) IU/L Alkaline Phosphatase 34 L (46-116) U/L Troponin I (0.000-0.056) ng/mL Total Protein 6.0 L (6.4-8.2) g/dL Albumin 3.3 L (3.4-5.0) g/dL Globulin 2.7 (2.6-4.0) g/dL Albumin/Globulin Ratio 1.2 (0.9-1.6) Med Orders - Current: Current Medications Acetaminophen (Tylenol) 650 mg PO Q4H PRN PRN Reason: Pain (Mild 1-3)/fever Last Admin: 03/15/19 08:20 Dose: 650 mg Aspirin (Halfprin) 81 mg PO DAILY [facility] Last Admin: 03/15/19 08:20 Dose: 81 mg Enoxaparin Sodium (Lovenox) 40 mg SUBCUT Q24H [facility] Last Admin: 03/14/19 18:37 Dose: 40 mg Losartan Potassium (Cozaar) 12.5 mg PO BID [facility] Last Admin: 03/15/19 08:17 Dose: 12.5 mg Metoprolol Succinate (Toprol Xl) 12.5 mg PO BID [facility] Last Admin: 03/15/19 08:18 Dose: 12.5 mg Oxycodone HCl (Oxycodone) 5 mg PO Q4H PRN PRN Reason: Pain (moderate 4-6) Sodium Chloride (Saline Flush) 10 ml FLUSH ASDIRECTED PRN PRN Reason: Keep Vein Open Sodium Chloride (Saline Flush) 2.5 ml FLUSH ASDIRECTED PRN PRN Reason: Keep Vein Open Discontinued Medications Aspirin (Aspirin) 325 mg PO ONETIME ONE Stop: 03/14/19 14:12 Last Admin: 03/14/19 14:49 Dose: 325 mg - Exam Quality Assessment: Denies: Supplemental Oxygen General: Reports: Alert, Oriented, Cooperative HEENT: Reports: Pupils Equal, Pupils Reactive, EOMI, Mucous Membr. Moist/[place] Neck: Reports: Supple, Trachea Midline Lungs: Reports: Clear to Auscultation, Normal Respiratory Effort Cardiovascular: Reports: Regular Rate, Regular Rhythm, No Murmurs GI/Abdominal Exam: Normal Bowel Sounds, No Distention Back Exam: Reports: Vertebral Tenderness (Cervical spine) Extremities: No: Normal Inspection (Severe osteoarthritis minor joints both hands) Skin: Reports: Warm, Dry, Intact Neurological: Reports: No New Focal Deficit Psy/Mental Status: Reports: Alert, Normal Affect, Normal Mood
== END 2019-03-15 15:30 | disposition home or self-care (01) ==
LOC: MW.ED 13:04 → MW.MS 14:37
PROVIDERS: ADMIT Internal Medicine; ATTEND Internal Medicine
DX: R07.89 Other chest pain (principal); I24.9 Acute ischemic heart disease, unspecified; I10 Essential (primary) hypertension; I25.2 Old myocardial infarction; I25.10 Atherosclerotic heart disease of native coronary artery without angina pectoris; M47.812 Spondylosis without myelopathy or radiculopathy, cervical region; M15.9 Polyosteoarthritis, unspecified; M48.02 Spinal stenosis, cervical region; Z88.5 Allergy status to narcotic agent; Z95.0 Presence of cardiac pacemaker; Z79.82 Long term (current) use of aspirin; Z79.899 Other long term (current) drug therapy
CPT/HCPCS: 36415; 71045; 72125; 80053; 84484; 85025; 93005; 99285; A9270; J1650; 96372; 99283; G0378

== ENCOUNTER 2021-02-08 12:15 | Observation (INO) | payer MEDICARE, OTHER ==
--- NOTE | 2021-02-08 12:43 | EDM.PDOC ---
ED HPI GENERAL MEDICAL PROBLEM - General Chief Complaint: Chest Pain Stated Complaint: CHEST PAIN Time Seen by Provider: 02/08/21 12:16 Source of Information: Reports: Patient History Limitations: Reports: No Limitations - History of Present Illness INITIAL COMMENTS - FREE TEXT/NARRATIVE: Patient is an 85-year-old female with a history of CAD with stents and pacemaker presents today for chest pain. Patient states that the pain is located on the left side. Patient states the pain does not radiate. Patient states that today the pain is made worse with movement. Patient also states that in the past she would take a few deep breath and the pain will resolve. She has had chest pain on and off for the past week but today the pain lasted a little longer than normal. Patient denies any nausea vomiting fever chills. Patient states that she took nitro before she came in but did not relieve the pain. Patient is a nitro is 2017 has been for some time. Patient has never stated the nitro that she normally has headache this time not suffer any headaches or other symptoms. chest Pain Score (Numeric/FACES): 5 - Related Data Allergies Allergy/AdvReac Type Severity Reaction Status Date / Time albuterol Allergy Other Verified 02/08/21 12:24 codeine Allergy Other Verified 02/08/21 12:24 gabapentin Allergy Other Verified 02/08/21 12:24 lisinopril Allergy Other Verified 02/08/21 12:24 meperidine HCl [From Demerol] Allergy Other Verified 02/08/21 12:24 oxycodone Allergy Other Verified 02/08/21 12:24 propoxyphene napsylate Allergy Other Verified 02/08/21 12:24 [From Darvocet-N] simvastatin Allergy Other Verified 02/08/21 12:24 Sulfa (Sulfonamide Allergy Other Verified 02/08/21 12:24 Antibiotics) tramadol Allergy Headache Verified 02/08/21 12:24 Home Meds: Home Meds Aspirin [Halfprin] 81 mg PO DAILY 04/14/14 [History] Multivitamin with Minerals [Multiple Vitamin] 1 tab PO DAILY 04/14/14 [History] Losartan [Cozaar] 12.5 mg PO BID 03/14/19 [History] Metoprolol Succinate [Toprol Xl] 12.5 mg PO BID 03/14/19 [History] Past Medical History HEENT History: Reports: Cataract, Impaired Vision, Other (See Below) Other HEENT History: "dry ears" Cardiovascular History: Reports: Hypertension, RI, Pacemaker, Prior Cardiac Arrest, Stents Other Cardiovascular History: (3) RI Respiratory History: Reports: None Gastrointestinal History: Reports: None Genitourinary History: Reports: None [employer] History: Reports: , Spontaneous Musculoskeletal History: Reports: Osteoarthritis, RA Neurological History: Reports: None Psychiatric History: Reports: None Endocrine/Metabolic History: Reports: None Hematologic History: Reports: None Immunologic History: Reports: None Oncologic (Cancer) History: Reports: None Dermatologic History: Reports: None - Infectious Disease History Infectious Disease History: Reports: Chicken Pox, Measles, Mumps - Past Surgical History Head Surgeries/Procedures: Reports: None HEENT Surgical History: Reports: Cataract Surgery, Eye Surgery, Tonsillectomy GI Surgical History: Reports: Appendectomy Musculoskeletal Surgical History: Reports: Other (See Below) Oncologic Surgical History: Reports: None Social & Family History - Family History Family Medical History: No Pertinent Family History - Caffeine Use Caffeine Use: Reports: Coffee, Tea Caffeine Use Comment: 3/day ED ROS GENERAL - Review of Systems Review Of Systems: See Below Constitutional: Reports: No Symptoms HEENT: Reports: No Symptoms Respiratory: Reports: No Symptoms Cardiovascular: Reports: Chest Pain Endocrine: Reports: No Symptoms GI/Abdominal: Reports: No Symptoms : Reports: No Symptoms Musculoskeletal: Reports: No Symptoms Skin: Reports: No Symptoms Neurological: Reports: No Symptoms Psychiatric: Reports: No Symptoms Hematologic/Lymphatic: Reports: No Symptoms Immunologic: Reports: No Symptoms ED EXAM, GENERAL - Physical Exam Exam: See Below Exam Limited By: No Limitations General Appearance: Alert, WD/WN, No Apparent Distress Head: Atraumatic, Normocephalic Respiratory/Chest: No Respiratory Distress, Lungs Clear, Normal Breath Sounds, No Accessory Muscle Use Cardiovascular: Normal Peripheral Pulses, Regular Rate, Rhythm GI/Abdominal: Normal Bowel Sounds, Soft, Non-Tender Back Exam: Normal Inspection, Full Range of Motion, NT Extremities: Normal Inspection, Normal Range of Motion, Non-Tender Neurological: Alert, Oriented, CN II-XII Intact #1 Interpretation EKG Date: 02/08/21 Time: 12:10 Rhythm: Other (atrial snsed ventricular paced) QRS: Wide Course - Vital Signs Last Recorded V/S: Last Vital Signs Temp 97.2 F 02/08/21 12:16 Pulse 72 02/08/21 13:45 Resp 16 02/08/21 13:45 BP 138/62 02/08/21 13:45 Pulse Ox 97 02/08/21 13:45 - Orders/Labs/Meds Orders: Active Orders 24 hr Category Date Time Status EKG Documentation Completion [RC] STAT Care 02/08/21 12:39 Active TROPONIN I [CHEM] Stat Lab 02/08/21 14:45 Ordered Labs: Laboratory Tests 02/08/21 02/08/21 02/08/21 Range/Units 12:21 12:21 12:21 WBC 12.76 H (4.0-11.0) K/uL RBC 4.71 (4.30-5.90) M/uL Hgb 14.3 (12.0-16.0) g/dL Hct 43.3 (36.0-46.0) % MCV 91.9 (80.0-98.0) fL MCH 30.4 (27.0-32.0) pg MCHC 33.0 (31.0-37.0) g/dL RDW Std Deviation 46.1 (28.0-62.0) fl RDW Coeff of Hari 14 (11.0-15.0) % Plt Count 300 (150-400) K/uL MPV 10.00 (7.40-12.00) fL Neut % (Auto) 77.4 (48.0-80.0) % Lymph % (Auto) 14.8 L (16.0-40.0) % [place] % (Auto) 6.3 (0.0-15.0) % Eos % (Auto) 1.3 (0.0-7.0) % Baso % (Auto) 0.2 (0.0-1.5) % Neut # (Auto) 9.9 H (1.4-5.7) K/uL Lymph # (Auto) 1.9 (0.6-2.4) K/uL [place] # (Auto) 0.8 (0.0-0.8) K/uL Eos # (Auto) 0.2 (0.0-0.7) K/uL Baso # (Auto) 0.0 (0.0-0.1) K/uL Nucleated RBC % 0.0 /100WBC Nucleated RBCs # 0 K/uL APTT 23.8 (18.6-31.3) SEC Sodium 138 (136-145) mmol/L Potassium 4.3 (3.5-5.1) mmol/L Chloride 102 (98-107) mmol/L Carbon Dioxide 24.8 (21.0-32.0) mmol/L BUN 17 (7.0-18.0) mg/dL Creatinine 0.9 (0.6-1.0) mg/dL Est Cr Clr Drug Dosing 33.65 mL/min Estimated GFR (MDRD) 59.8 ml/min Glucose 102 (74-106) mg/dL Calcium 9.0 (8.5-10.1) mg/dL Magnesium 2.0 (1.8-2.4) mg/dL Total Bilirubin 0.5 (0.2-1.0) mg/dL AST 23 (15-37) IU/L ALT 32 (14-63) IU/L Alkaline Phosphatase 66 (46-116) U/L Creatine Kinase 96 (26-308) U/L Troponin I < 0.050 (0.000-0.056) ng/mL Total Protein 6.7 (6.4-8.2) g/dL Albumin 3.4 (3.4-5.0) g/dL Globulin 3.3 (2.6-4.0) g/dL Albumin/Globulin Ratio 1.0 (0.9-1.6) Lipase 125 (73-393) U/L SARS-CoV-2 RNA (OSEI) (NEGATIVE) 02/08/21 Range/Units 12:51 WBC (4.0-11.0) K/uL RBC (4.30-5.90) M/uL Hgb (12.0-16.0) g/dL Hct (36.0-46.0) % MCV (80.0-98.0) fL MCH (27.0-32.0) pg MCHC (31.0-37.0) g/dL RDW Std Deviation (28.0-62.0) fl RDW Coeff of Hari (11.0-15.0) % Plt Count (150-400) K/uL MPV (7.40-12.00) fL Neut % (Auto) (48.0-80.0) % Lymph % (Auto) (16.0-40.0) % [place] % (Auto) (0.0-15.0) % Eos % (Auto) (0.0-7.0) % Baso % (Auto) (0.0-1.5) % Neut # (Auto) (1.4-5.7) K/uL Lymph # (Auto) (0.6-2.4) K/uL [place] # (Auto) (0.0-0.8) K/uL Eos # (Auto) (0.0-0.7) K/uL Baso # (Auto) (0.0-0.1) K/uL Nucleated RBC % /100WBC Nucleated RBCs # K/uL APTT (18.6-31.3) SEC Sodium (136-145) mmol/L Potassium (3.5-5.1) mmol/L Chloride (98-107) mmol/L Carbon Dioxide (21.0-32.0) mmol/L BUN (7.0-18.0) mg/dL Creatinine (0.6-1.0) mg/dL Est Cr Clr Drug Dosing mL/min Estimated GFR (MDRD) ml/min Glucose (74-106) mg/dL Calcium (8.5-10.1) mg/dL Magnesium (1.8-2.4) mg/dL Total Bilirubin (0.2-1.0) mg/dL AST (15-37) IU/L ALT (14-63) IU/L Alkaline Phosphatase (46-116) U/L Creatine Kinase (26-308) U/L Troponin I (0.000-0.056) ng/mL Total Protein (6.4-8.2) g/dL Albumin (3.4-5.0) g/dL Globulin (2.6-4.0) g/dL Albumin/Globulin Ratio (0.9-1.6) Lipase (73-393) U/L SARS-CoV-2 RNA (OSEI) NEGATIVE (NEGATIVE) Meds: Medications Discontinued Medications Generic Name Dose Route Start Last Admin Trade Name Freq PRN Reason Stop Dose Admin Aspirin 162 mg 02/08/21 13:46 02/08/21 13:54 Aspirin 81 Mg Tab.Ec PO 02/08/21 13:47 Not Given ONETIME ONE Aspirin Confirm 02/08/21 13:50 02/08/21 13:54 Aspirin 81 Mg Tab.Chew Administered 02/08/21 13:51 162 mg Dose Administration 162 mg .ROUTE .STK-MED ONE Departure - Departure Time of Disposition: 14:01 Disposition: Admitted As Inpatient 66 Condition: Good Clinical Impression: Chest pain Qualifiers: Chest pain type: unspecified Qualified Code(s): R07.9 - Chest pain, unspecified Forms: ED Department Discharge Sepsis Event Note (ED) - Evaluation Sepsis Screening Result: No Definite Risk - Focused Exam Vital Signs: Vital Signs Temp Pulse Resp BP Pulse Ox 02/08/21 13:45 72 16 138/62 97 02/08/21 13:15 70 16 134/54 L 97 02/08/21 12:16 97.2 F 79 18 173/96 H 96 - My Orders Last 24 Hours: My Active Orders 02/08/21 12:39 EKG Documentation Completion [RC] STAT 02/08/21 14:45 TROPONIN I [CHEM] Stat - Assessment/Plan Last 24 Hours: My Active Orders 02/08/21 12:39 EKG Documentation Completion [RC] STAT 02/08/21 14:45 TROPONIN I [CHEM] Stat Plan: Is an 85-year-old female who presents today for chest pain. Patient has a cardiac history heart score is is 4. Patient will likely require admission for troponin trending.
[2021-02-08 12:56] LABS: BLOOD UREA NITROGEN,BUN 17 mg/dL (7.0-18.0); CARBON DIOXIDE,CO2 24.8 mmol/L (21.0-32.0); CHLORIDE,CL 102 mmol/L (98-107); GLUCOSE RANDOM 102 mg/dL (74-106); LIPASE 125 U/L (73-393); POTASSIUM,K 4.3 mmol/L (3.5-5.1); SODIUM,NA 138 mmol/L (136-145)
--- NOTE | 2021-02-08 13:45 | CR ---
INDICATION: Chest pain TECHNIQUE: Two view chest. FINDINGS: Normal cardiac mediastinal silhouette. Left cardiac pacer: Left posterior rib fractures. No pneumothorax. Seen only on the lateral view is possible atelectasis or subtle infiltrates posteriorly. Dictated by Jess Decker MD @ Feb 08 2021 1:42PM Signed by Dr. Jess Decker @ Feb 08 2021 1:43PM
[2021-02-08] MEDS ORDERED: Aspirin 81 MG Tab.EC PO ONE (13:46)
[2021-02-08] MEDS ORDERED: Aspirin 81 MG Tab.Chew ONE (13:50)
[2021-02-08] MEDS ORDERED: Ondansetron 4 MG/2 ML SDV IVPUSH PRN (16:54)
[2021-02-08] MEDS ORDERED: Acetaminophen 325 MG Tab PO PRN (16:56)
--- NOTE | 2021-02-08 19:09 | PCM.HP.2 ---
H&P History of Present Illness - General Date of Service: 02/08/21 Admit Problem/Dx: Admission Diagnosis/Problem Admission Diagnosis/Problem Chest pain in adult - History of Present Illness Initial Comments - Free Text/Narative: Patient is an 85-year-old female with a history of CAD with stents, h/o cardiac arrest, and pacemaker and defibrillator presents today for chest pain. Patient states that the pain is located on the left side and started this morning. Patient states the pain does not radiate. Patient states that today the pain is made worse with movement and deep breaths. Patient also states that in the past she would take a few deep breath and the pain will resolve but this time pain was persistent. She has had chest pain on and off for the past week which would resolve. Patient denies any nausea vomiting fever chills. Patient states that she took nitro which was and also her baby aspirin before she came in but did not relieve the pain, patient eventually drove herself to ER. Patients pain resolved by the tome she came to ER. EKG was done which didnt show any acute STEMI, showed paced rhythm, troponin was negative. Patient states she has a follow up with her cardiology by the end of this month, she is also due to get her defibrillator examined. Patient was admitted for ACS rule out. chest Pain Score (Numeric/FACES): 5 - Related Data Allergies/Adverse Reactions: Allergies Allergy/AdvReac Type Severity Reaction Status Date / Time albuterol Allergy Other Verified 02/08/21 16:36 codeine Allergy Other Verified 02/08/21 16:36 gabapentin Allergy Other Verified 02/08/21 16:36 lisinopril Allergy Other Verified 02/08/21 16:36 meperidine HCl [From Demerol] Allergy Other Verified 02/08/21 16:36 oxycodone Allergy Other Verified 02/08/21 16:36 propoxyphene napsylate Allergy Other Verified 02/08/21 16:36 [From Darvocet-N] simvastatin Allergy Other Verified 02/08/21 16:36 Sulfa (Sulfonamide Allergy Other Verified 02/08/21 16:36 Antibiotics) tramadol Allergy Headache Verified 02/08/21 16:36 Home Medications: Home Meds Aspirin [Halfprin] 81 mg PO DAILY 04/14/14 [History] Multivitamin with Minerals [Multiple Vitamin] 1 tab PO DAILY 04/14/14 [History] Losartan [Cozaar] 12.5 mg PO BID 03/14/19 [History] Metoprolol Succinate [Toprol Xl] 12.5 mg PO BID 03/14/19 [History] predniSONE [predniSONE 5 MG/5 ML] 5 mg PO 02/08/21 [History] Past Medical History HEENT History: Reports: Cataract, Impaired Vision, Otitis Media, Other (See Below) Other HEENT History: "dry ears" Cardiovascular History: Reports: Hypertension, ID, Pacemaker, Prior Cardiac Arrest, Stents Other Cardiovascular History: (3) ID Respiratory History: Reports: Asthma Gastrointestinal History: Reports: None Genitourinary History: Reports: None 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: , 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 Musculoskeletal History: Reports: Osteoarthritis, RA Neurological History: Reports: None Psychiatric History: Reports: None Endocrine/Metabolic History: Reports: None Hematologic History: Reports: Anemia Other Hematologic History: pt been on Iron pill since she was 22 yrs old Immunologic History: Reports: None Oncologic (Cancer) History: Reports: None Dermatologic History: Reports: None - Infectious Disease History Infectious Disease History: Reports: Chicken Pox, Measles, Mumps, Pertussis (Whooping Cough) - Past Surgical History Head Surgeries/Procedures: Reports: Other (See Below) HEENT Surgical History: Reports: Cataract Surgery, Eye Surgery, Tonsillectomy Cardiovascular Surgical History: Reports: Pacer, Other (See Below) Other Cardiovascular Surgeries/Procedures: Implanted Defibrilator Respiratory Surgical History: Reports: None GI Surgical History: Reports: Appendectomy Musculoskeletal Surgical History: Reports: Carpal Tunnel, Other (See Below) Other Musculoskeletal Surgeries/Procedures:: back surgery 2012 Oncologic Surgical History: Reports: None Social & Family History - Family History Family Medical History: No Pertinent Family History - Tobacco Use Tobacco Use Status *Q: Former Tobacco User Used Tobacco, but Quit: Yes Month/Year Tobacco Last Used: 1984 Second Hand Smoke Exposure: No - Caffeine Use Caffeine Use: Reports: Coffee Caffeine Use Comment: 3/day - Recreational Drug Use Recreational Drug Use: No H&P Review of Systems - Review of Systems: Review Of Systems: See Below General: Denies: Fever, Chills, Malaise Pulmonary: Reports: Pleuritic Chest Pain. Denies: Shortness of Breath, Wheezing Cardiovascular: Reports: Chest Pain. Denies: Palpitations, Dyspnea on Exertion, Edema Gastrointestinal: Denies: Abdominal Pain, Anorexia, Black Stool, Hematochezia, Melena, Nausea Genitourinary: Denies: Dysuria, Frequency, Burning Musculoskeletal: Denies: Neck Pain, Shoulder Pain, Arm Pain Exam - Exam Exam: See Below - Vital Signs Vital Signs: Last Vital Signs Temp 37.3 C 02/08/21 16:24 Pulse 78 02/08/21 16:24 Resp 16 02/08/21 16:24 BP 153/79 H 02/08/21 16:24 Pulse Ox 95 02/08/21 16:24 Weight: 48 kg - Exam Quality Assessment: Supplemental Oxygen General: Alert, Oriented Neck: Supple, Trachea Midline Lungs: Clear to Auscultation, Normal Respiratory Effort Cardiovascular: Regular Rate, Regular Rhythm, Normal S1, Normal S2 - Patient Data Lab Results Last 24 hrs: Laboratory Results - last 24 hr 02/08/21 02/08/21 02/08/21 Range/Units 12:21 12:21 12:21 WBC 12.76 H (4.0-11.0) K/uL RBC 4.71 (4.30-5.90) M/uL Hgb 14.3 (12.0-16.0) g/dL Hct 43.3 (36.0-46.0) % MCV 91.9 (80.0-98.0) fL MCH 30.4 (27.0-32.0) pg MCHC 33.0 (31.0-37.0) g/dL RDW Std Deviation 46.1 (28.0-62.0) fl RDW Coeff of Hari 14 (11.0-15.0) % Plt Count 300 (150-400) K/uL MPV 10.00 (7.40-12.00) fL Neut % (Auto) 77.4 (48.0-80.0) % Lymph % (Auto) 14.8 L (16.0-40.0) % [place] % (Auto) 6.3 (0.0-15.0) % Eos % (Auto) 1.3 (0.0-7.0) % Baso % (Auto) 0.2 (0.0-1.5) % Neut # (Auto) 9.9 H (1.4-5.7) K/uL Lymph # (Auto) 1.9 (0.6-2.4) K/uL [place] # (Auto) 0.8 (0.0-0.8) K/uL Eos # (Auto) 0.2 (0.0-0.7) K/uL Baso # (Auto) 0.0 (0.0-0.1) K/uL Nucleated RBC % 0.0 /100WBC Nucleated RBCs # 0 K/uL APTT 23.8 (18.6-31.3) SEC Sodium 138 (136-145) mmol/L Potassium 4.3 (3.5-5.1) mmol/L Chloride 102 (98-107) mmol/L Carbon Dioxide 24.8 (21.0-32.0) mmol/L BUN 17 (7.0-18.0) mg/dL Creatinine 0.9 (0.6-1.0) mg/dL Est Cr Clr Drug Dosing 33.65 mL/min Estimated GFR (MDRD) 59.8 ml/min Glucose 102 (74-106) mg/dL Calcium 9.0 (8.5-10.1) mg/dL Magnesium 2.0 (1.8-2.4) mg/dL Total Bilirubin 0.5 (0.2-1.0) mg/dL AST 23 (15-37) IU/L ALT 32 (14-63) IU/L Alkaline Phosphatase 66 (46-116) U/L Creatine Kinase 96 (26-308) U/L Troponin I < 0.050 (0.000-0.056) ng/mL Total Protein 6.7 (6.4-8.2) g/dL Albumin 3.4 (3.4-5.0) g/dL Globulin 3.3 (2.6-4.0) g/dL Albumin/Globulin Ratio 1.0 (0.9-1.6) Lipase 125 (73-393) U/L SARS-CoV-2 RNA (OSEI) (NEGATIVE) 02/08/21 02/08/21 02/08/21 Range/Units 12:51 14:57 18:02 WBC (4.0-11.0) K/uL RBC (4.30-5.90) M/uL Hgb (12.0-16.0) g/dL Hct (36.0-46.0) % MCV (80.0-98.0) fL MCH (27.0-32.0) pg MCHC (31.0-37.0) g/dL RDW Std Deviation (28.0-62.0) fl RDW Coeff of Hari (11.0-15.0) % Plt Count (150-400) K/uL MPV (7.40-12.00) fL Neut % (Auto) (48.0-80.0) % Lymph % (Auto) (16.0-40.0) % [place] % (Auto) (0.0-15.0) % Eos % (Auto) (0.0-7.0) % Baso % (Auto) (0.0-1.5) % Neut # (Auto) (1.4-5.7) K/uL Lymph # (Auto) (0.6-2.4) K/uL [place] # (Auto) (0.0-0.8) K/uL Eos # (Auto) (0.0-0.7) K/uL Baso # (Auto) (0.0-0.1) K/uL Nucleated RBC % /100WBC Nucleated RBCs # K/uL APTT (18.6-31.3) SEC Sodium (136-145) mmol/L Potassium (3.5-5.1) mmol/L Chloride (98-107) mmol/L Carbon Dioxide (21.0-32.0) mmol/L BUN (7.0-18.0) mg/dL Creatinine (0.6-1.0) mg/dL Est Cr Clr Drug Dosing mL/min Estimated GFR (MDRD) ml/min Glucose (74-106) mg/dL Calcium (8.5-10.1) mg/dL Magnesium (1.8-2.4) mg/dL Total Bilirubin (0.2-1.0) mg/dL AST (15-37) IU/L ALT (14-63) IU/L Alkaline Phosphatase (46-116) U/L Creatine Kinase (26-308) U/L Troponin I < 0.050 < 0.050 (0.000-0.056) ng/mL Total Protein (6.4-8.2) g/dL Albumin (3.4-5.0) g/dL Globulin (2.6-4.0) g/dL Albumin/Globulin Ratio (0.9-1.6) Lipase (73-393) U/L SARS-CoV-2 RNA (OSEI) NEGATIVE (NEGATIVE) Result Diagrams: 02/08/21 12:21 02/08/21 12:21 Sepsis Event Note - Evaluation Sepsis Screening Result: No Definite Risk - Focused Exam Vital Signs: Vital Signs Temp Pulse Resp BP Pulse Ox 02/08/21 16:24 37.3 C 78 16 153/79 H 95 02/08/21 15:30 71 16 131/83 95 02/08/21 15:15 72 16 128/86 95 02/08/21 15:00 69 16 130/79 95 02/08/21 14:45 69 16 139/79 94 L 02/08/21 14:30 70 16 139/81 94 L 02/08/21 14:15 71 16 133/81 95 02/08/21 14:00 70 16 133/81 96 02/08/21 13:45 72 16 138/62 97 02/08/21 13:15 70 16 134/54 L 97 02/08/21 13:00 73 16 129/57 L 95 02/08/21 12:45 76 16 119/69 95 02/08/21 12:16 36.2 C 79 18 173/96 H 96 - Problem List (1) CAD (coronary artery disease) SNOMED Code(s): 12089832 ICD Code: I25.10 - ATHSCL HEART DISEASE OF [place] CORONARY ARTERY W/O ANG PCTRS Status: Acute Current Visit: Yes (2) Cardiac defibrillator in place Status: Acute Current Visit: Yes (3) Chest pain SNOMED Code(s): 56557760 ICD Code: R07.9 - CHEST PAIN, UNSPECIFIED Status: Acute Current Visit: Yes Qualifiers: Chest pain type: unspecified Qualified Code(s): R07.9 - Chest pain, unspecified (4) Osteoarthritis involving multiple joints on both sides of body SNOMED Code(s): 170797091 ICD Code: M15.9 - POLYOSTEOARTHRITIS, UNSPECIFIED Status: Chronic Priority: Medium Current Visit: No Problem List Initiated/Reviewed/Updated: Yes Orders Last 24hrs: Active Orders 24 hr Category Date Time Status Patient Status [ADT] Routine ADT 02/08/21 15:29 Active Ambulate [RC] ASDIRECTED Care 02/08/21 16:54 Active Vital Signs [RC] Q4H Care 02/08/21 16:53 Active Heart Healthy Diet [DIET] Diet 02/09/21 Breakfast Active CBC WITH AUTO DIFF [HEME] Timed Lab 02/09/21 05:00 Ordered COMPREHENSIVE METABOLIC PN,CMP [CHEM] Timed Lab 02/09/21 05:00 Ordered UA W/MIRANDA RFLX IF INDICATED [URIN] Routine Lab 02/08/21 16:56 Ordered Acetaminophen [TylenoL] Med 02/08/21 16:56 Active 650 mg PO Q4H PRN Ondansetron [Zofran] Med 02/08/21 16:54 Active 4 mg IVPUSH Q4H PRN Medication Orders Acetaminophen (Acetaminophen 325 Mg Tab) 650 mg PO Q4H PRN PRN Reason: Pain Ondansetron HCl (Ondansetron 4 Mg/2 Ml Sdv) 4 mg IVPUSH Q4H PRN PRN Reason: Nausea Assessment/Plan Comment:: 85 y/o F admitted for ACS rile out EKG noted, cont trending troponin Pain looks more musculoskeletal on exam cont home meds as appropriate telemetry monitoring monitor and replete electrolytes Would benefit from 2D echo and stress test in near future
[2021-02-09 06:06] LABS: BLOOD UREA NITROGEN,BUN 15 mg/dL (7.0-18.0); CARBON DIOXIDE,CO2 27.4 mmol/L (21.0-32.0); CHLORIDE,CL 105 mmol/L (98-107); GLUCOSE RANDOM 83 mg/dL (74-106); POTASSIUM,K 3.7 mmol/L (3.5-5.1); SODIUM,NA 140 mmol/L (136-145)
[2021-02-09] MEDS ORDERED: Aspirin 81 MG Tab.EC PO SCH (09:00)
--- NOTE | 2021-02-09 12:09 | PCM.DCSUM1 ---
Discharge Summary - Hospital Course Free Text/Narrative:: Patient is an 85-year-old female with a history of CAD with stents, h/o cardiac arrest, and pacemaker and defibrillator presents today for chest pain. Patient states that the pain is located on the left side and started this morning. Patient states the pain does not radiate. Patient states that today the pain is made worse with movement and deep breaths. Patient also states that in the past she would take a few deep breath and the pain will resolve but this time pain was persistent. She has had chest pain on and off for the past week which would resolve. Patient denies any nausea vomiting fever chills. Patient states that she took nitro which was and also her baby aspirin before she came in but did not relieve the pain, patient eventually drove herself to ER. Patients pain resolved by the tome she came to ER. EKG was done which didn't show any acute STEMI, showed paced rhythm, troponin was negative. Patient states she has a follow up with her cardiology by the end of this month, she is also due to get her defibrillator examined. Patient was admitted for ACS rule out. Patient was monitored on telemetry, troponin were trended which were negative, her pain on exam was more musculoskeletal rather than cardiac in nature, overni ght she had no cardiac events on tele, patient was medically stable for dc and was recommended to fu with her pcp and cardiology for stress test/ further cardiac work up on dc. Diagnosis: Stroke: No - Discharge Data Discharge Date: 02/09/21 Discharge Disposition: Home, Self-Care 01 Condition: Fair - Referral to Home Health Primary Care Physician: Aneudy Wilde MD - Discharge Diagnosis/Problem(s) (1) CAD (coronary artery disease) SNOMED Code(s): 17098274 ICD Code: I25.10 - ATHSCL HEART DISEASE OF [place] CORONARY ARTERY W/O ANG PCTRS Status: Acute (2) Cardiac defibrillator in place Status: Acute (3) Chest pain SNOMED Code(s): 90774985 ICD Code: R07.9 - CHEST PAIN, UNSPECIFIED Status: Acute Qualifiers: Chest pain type: unspecified Qualified Code(s): R07.9 - Chest pain, unspecified (4) Osteoarthritis involving multiple joints on both sides of body SNOMED Code(s): 700276277 ICD Code: M15.9 - POLYOSTEOARTHRITIS, UNSPECIFIED Status: Chronic Priority: Medium - Discharge Plan *PRESCRIPTION DRUG MONITORING PROGRAM REVIEWED*: Not Applicable *COPY OF PRESCRIPTION DRUG MONITORING REPORT IN PATIENT LUISA: Not Applicable Prescriptions/Med Rec: Nitroglycerin [Nitrostat] 0.4 mg SL ONETIME PRN #7 tab.sl PRN Reason: Chest Pain Acetaminophen [Tylenol] 650 mg PO Q6H PRN #30 tablet PRN Reason: Pain Home Medications: Home Meds Aspirin [Halfprin] 81 mg PO DAILY 04/14/14 [History] Multivitamin with Minerals [Multiple Vitamin] 1 tab PO DAILY 04/14/14 [History] Losartan [Cozaar] 12.5 mg PO BID 03/14/19 [History] Metoprolol Succinate [Toprol Xl] 12.5 mg PO BID 03/14/19 [History] predniSONE [predniSONE 5 MG/5 ML] 5 mg PO 02/08/21 [History] Acetaminophen [Tylenol] 650 mg PO Q6H PRN #30 tablet 02/09/21 [Rx] Nitroglycerin [Nitrostat] 0.4 mg SL ONETIME PRN #7 tab.sl 02/09/21 [Rx] Oxygen Therapy Mode: Room Air Patient Handouts: Nonspecific Chest Pain, Adult, [id number], Acetaminophen tablets or caplets Referrals: Sunny Palacio MD [Ordering Only Provider] - Aneudy Wilde MD [Primary Care Provider] - 02/26/21 8:30 am - Discharge Summary/Plan Comment DC Time >30 min.: No - Patient Data Vitals - Most Recent: Last Vital Signs Temp 36.9 C 02/09/21 08:00 Pulse 80 02/09/21 08:00 Resp 16 02/09/21 08:00 BP 140/69 02/09/21 08:00 Pulse Ox 93 L 02/09/21 08:00 Weight - Most Recent: 48 kg I&O - Last 24 hours: Intake & Output 02/08/21 02/09/21 02/09/21 22:59 06:59 14:59 Intake Total 550 Output Total 650 Balance -100 Lab Results - Last 24 hrs: Laboratory Results - last 24 hr 02/08/21 02/08/21 02/08/21 Range/Units 12:21 12:21 12:21 WBC 12.76 H (4.0-11.0) K/uL RBC 4.71 (4.30-5.90) M/uL Hgb 14.3 (12.0-16.0) g/dL Hct 43.3 (36.0-46.0) % MCV 91.9 (80.0-98.0) fL MCH 30.4 (27.0-32.0) pg MCHC 33.0 (31.0-37.0) g/dL RDW Std Deviation 46.1 (28.0-62.0) fl RDW Coeff of Hari 14 (11.0-15.0) % Plt Count 300 (150-400) K/uL MPV 10.00 (7.40-12.00) fL Neut % (Auto) 77.4 (48.0-80.0) % Lymph % (Auto) 14.8 L (16.0-40.0) % [place] % (Auto) 6.3 (0.0-15.0) % Eos % (Auto) 1.3 (0.0-7.0) % Baso % (Auto) 0.2 (0.0-1.5) % Neut # (Auto) 9.9 H (1.4-5.7) K/uL Lymph # (Auto) 1.9 (0.6-2.4) K/uL [place] # (Auto) 0.8 (0.0-0.8) K/uL Eos # (Auto) 0.2 (0.0-0.7) K/uL Baso # (Auto) 0.0 (0.0-0.1) K/uL Nucleated RBC % 0.0 /100WBC Nucleated RBCs # 0 K/uL APTT 23.8 (18.6-31.3) SEC Sodium 138 (136-145) mmol/L Potassium 4.3 (3.5-5.1) mmol/L Chloride 102 (98-107) mmol/L Carbon Dioxide 24.8 (21.0-32.0) mmol/L BUN 17 (7.0-18.0) mg/dL Creatinine 0.9 (0.6-1.0) mg/dL Est Cr Clr Drug Dosing 33.65 mL/min Estimated GFR (MDRD) 59.8 ml/min Glucose 102 (74-106) mg/dL Calcium 9.0 (8.5-10.1) mg/dL Magnesium 2.0 (1.8-2.4) mg/dL Total Bilirubin 0.5 (0.2-1.0) mg/dL AST 23 (15-37) IU/L ALT 32 (14-63) IU/L Alkaline Phosphatase 66 (46-116) U/L Creatine Kinase 96 (26-308) U/L Troponin I < 0.050 (0.000-0.056) ng/mL Total Protein 6.7 (6.4-8.2) g/dL Albumin 3.4 (3.4-5.0) g/dL Globulin 3.3 (2.6-4.0) g/dL Albumin/Globulin Ratio 1.0 (0.9-1.6) Lipase 125 (73-393) U/L Urine Color Urine Appearance Urine pH (5.0-8.0) Ur Specific [place] (1.001-1.035) Urine Protein (NEGATIVE) mg/dL Urine Glucose (UA) (NEGATIVE) mg/dL Urine Ketones (NEGATIVE) mg/dL Urine Occult Blood (NEGATIVE) Urine Nitrite (NEGATIVE) Urine Bilirubin (NEGATIVE) Urine Urobilinogen (<2.0) EU/dL Ur Leukocyte Esterase (NEGATIVE) SARS-CoV-2 RNA (OSEI) (NEGATIVE) 02/08/21 02/08/21 02/08/21 Range/Units 12:51 14:57 18:02 WBC (4.0-11.0) K/uL RBC (4.30-5.90) M/uL Hgb (12.0-16.0) g/dL Hct (36.0-46.0) % MCV (80.0-98.0) fL MCH (27.0-32.0) pg MCHC (31.0-37.0) g/dL RDW Std Deviation (28.0-62.0) fl RDW Coeff of Hari (11.0-15.0) % Plt Count (150-400) K/uL MPV (7.40-12.00) fL Neut % (Auto) (48.0-80.0) % Lymph % (Auto) (16.0-40.0) % [place] % (Auto) (0.0-15.0) % Eos % (Auto) (0.0-7.0) % Baso % (Auto) (0.0-1.5) % Neut # (Auto) (1.4-5.7) K/uL Lymph # (Auto) (0.6-2.4) K/uL [place] # (Auto) (0.0-0.8) K/uL Eos # (Auto) (0.0-0.7) K/uL Baso # (Auto) (0.0-0.1) K/uL Nucleated RBC % /100WBC Nucleated RBCs # K/uL APTT (18.6-31.3) SEC Sodium (136-145) mmol/L Potassium (3.5-5.1) mmol/L Chloride (98-107) mmol/L Carbon Dioxide (21.0-32.0) mmol/L BUN (7.0-18.0) mg/dL Creatinine (0.6-1.0) mg/dL Est Cr Clr Drug Dosing mL/min Estimated GFR (MDRD) ml/min Glucose (74-106) mg/dL Calcium (8.5-10.1) mg/dL Magnesium (1.8-2.4) mg/dL Total Bilirubin (0.2-1.0) mg/dL AST (15-37) IU/L ALT (14-63) IU/L Alkaline Phosphatase (46-116) U/L Creatine Kinase (26-308) U/L Troponin I < 0.050 < 0.050 (0.000-0.056) ng/mL Total Protein (6.4-8.2) g/dL Albumin (3.4-5.0) g/dL Globulin (2.6-4.0) g/dL Albumin/Globulin Ratio (0.9-1.6) Lipase (73-393) U/L Urine Color Urine Appearance Urine pH (5.0-8.0) Ur Specific [place] (1.001-1.035) Urine Protein (NEGATIVE) mg/dL Urine Glucose (UA) (NEGATIVE) mg/dL Urine Ketones (NEGATIVE) mg/dL Urine Occult Blood (NEGATIVE) Urine Nitrite (NEGATIVE) Urine Bilirubin (NEGATIVE) Urine Urobilinogen (<2.0) EU/dL Ur Leukocyte Esterase (NEGATIVE) SARS-CoV-2 RNA (OSEI) NEGATIVE (NEGATIVE) 02/08/21 02/08/21 02/09/21 Range/Units 19:12 22:53 05:36 WBC 8.41 (4.0-11.0) K/uL RBC 4.26 L (4.30-5.90) M/uL Hgb 12.6 (12.0-16.0) g/dL Hct 38.8 (36.0-46.0) % MCV 91.1 (80.0-98.0) fL MCH 29.6 (27.0-32.0) pg MCHC 32.5 (31.0-37.0) g/dL RDW Std Deviation 45.0 (28.0-62.0) fl RDW Coeff of Hari 14 (11.0-15.0) % Plt Count 224 (150-400) K/uL MPV 9.60 (7.40-12.00) fL Neut % (Auto) 65.8 (48.0-80.0) % Lymph % (Auto) 20.9 (16.0-40.0) % [place] % (Auto) 9.6 (0.0-15.0) % Eos % (Auto) 3.6 (0.0-7.0) % Baso % (Auto) 0.1 (0.0-1.5) % Neut # (Auto) 5.5 (1.4-5.7) K/uL Lymph # (Auto) 1.8 (0.6-2.4) K/uL [place] # (Auto) 0.8 (0.0-0.8) K/uL Eos # (Auto) 0.3 (0.0-0.7) K/uL Baso # (Auto) 0.0 (0.0-0.1) K/uL Nucleated RBC % 0.0 /100WBC Nucleated RBCs # 0 K/uL APTT (18.6-31.3) SEC Sodium (136-145) mmol/L Potassium (3.5-5.1) mmol/L Chloride (98-107) mmol/L Carbon Dioxide (21.0-32.0) mmol/L BUN (7.0-18.0) mg/dL Creatinine (0.6-1.0) mg/dL Est Cr Clr Drug Dosing mL/min Estimated GFR (MDRD) ml/min Glucose (74-106) mg/dL Calcium (8.5-10.1) mg/dL Magnesium (1.8-2.4) mg/dL Total Bilirubin (0.2-1.0) mg/dL AST (15-37) IU/L ALT (14-63) IU/L Alkaline Phosphatase (46-116) U/L Creatine Kinase (26-308) U/L Troponin I < 0.050 (0.000-0.056) ng/mL Total Protein (6.4-8.2) g/dL Albumin (3.4-5.0) g/dL Globulin (2.6-4.0) g/dL Albumin/Globulin Ratio (0.9-1.6) Lipase (73-393) U/L Urine Color YELLOW Urine Appearance CLEAR Urine pH 6.5 (5.0-8.0) Ur Specific [place] 1.015 (1.001-1.035) Urine Protein NEGATIVE (NEGATIVE) mg/dL Urine Glucose (UA) NEGATIVE (NEGATIVE) mg/dL Urine Ketones NEGATIVE (NEGATIVE) mg/dL Urine Occult Blood NEGATIVE (NEGATIVE) Urine Nitrite NEGATIVE (NEGATIVE) Urine Bilirubin NEGATIVE (NEGATIVE) Urine Urobilinogen 0.2 (<2.0) EU/dL Ur Leukocyte Esterase NEGATIVE (NEGATIVE) SARS-CoV-2 RNA (OSEI) (NEGATIVE) 02/09/21 02/09/21 Range/Units 05:36 10:49 WBC (4.0-11.0) K/uL RBC (4.30-5.90) M/uL Hgb (12.0-16.0) g/dL Hct (36.0-46.0) % MCV (80.0-98.0) fL MCH (27.0-32.0) pg MCHC (31.0-37.0) g/dL RDW Std Deviation (28.0-62.0) fl RDW Coeff of Hari (11.0-15.0) % Plt Count (150-400) K/uL MPV (7.40-12.00) fL Neut % (Auto) (48.0-80.0) % Lymph % (Auto) (16.0-40.0) % [place] % (Auto) (0.0-15.0) % Eos % (Auto) (0.0-7.0) % Baso % (Auto) (0.0-1.5) % Neut # (Auto) (1.4-5.7) K/uL Lymph # (Auto) (0.6-2.4) K/uL [place] # (Auto) (0.0-0.8) K/uL Eos # (Auto) (0.0-0.7) K/uL Baso # (Auto) (0.0-0.1) K/uL Nucleated RBC % /100WBC Nucleated RBCs # K/uL APTT (18.6-31.3) SEC Sodium 140 (136-145) mmol/L Potassium 3.7 (3.5-5.1) mmol/L Chloride 105 (98-107) mmol/L Carbon Dioxide 27.4 (21.0-32.0) mmol/L BUN 15 (7.0-18.0) mg/dL Creatinine 0.7 (0.6-1.0) mg/dL Est Cr Clr Drug Dosing 46.14 mL/min Estimated GFR (MDRD) > 60.0 ml/min Glucose 83 (74-106) mg/dL Calcium 8.1 L (8.5-10.1) mg/dL Magnesium (1.8-2.4) mg/dL Total Bilirubin (0.2-1.0) mg/dL AST (15-37) IU/L ALT (14-63) IU/L Alkaline Phosphatase (46-116) U/L Creatine Kinase (26-308) U/L Troponin I < 0.050 (0.000-0.056) ng/mL Total Protein (6.4-8.2) g/dL Albumin (3.4-5.0) g/dL Globulin (2.6-4.0) g/dL Albumin/Globulin Ratio (0.9-1.6) Lipase (73-393) U/L Urine Color Urine Appearance Urine pH (5.0-8.0) Ur Specific [place] (1.001-1.035) Urine Protein (NEGATIVE) mg/dL Urine Glucose (UA) (NEGATIVE) mg/dL Urine Ketones (NEGATIVE) mg/dL Urine Occult Blood (NEGATIVE) Urine Nitrite (NEGATIVE) Urine Bilirubin (NEGATIVE) Urine Urobilinogen (<2.0) EU/dL Ur Leukocyte Esterase (NEGATIVE) SARS-CoV-2 RNA (OESI) (NEGATIVE) Med Orders - Current: Current Medications Acetaminophen (Acetaminophen 325 Mg Tab) 650 mg PO Q4H PRN PRN Reason: Pain Aspirin (Aspirin 81 Mg Tab.Ec) 81 mg PO DAILY MICHAEL Last Admin: 02/09/21 09:01 Dose: 81 mg Documented by: Ondansetron HCl (Ondansetron 4 Mg/2 Ml Sdv) 4 mg IVPUSH Q4H PRN PRN Reason: Nausea Discontinued Medications Aspirin (Aspirin 81 Mg Tab.Ec) 162 mg PO ONETIME ONE Stop: 02/08/21 13:47 Last Admin: 02/08/21 13:54 Dose: Not Given Documented by: Aspirin (Aspirin 81 Mg Tab.Chew) Confirm Administered Dose 162 mg .ROUTE .STK- MED ONE Stop: 02/08/21 13:51 Last Admin: 02/08/21 13:54 Dose: 162 mg Documented by:
[2021-02-09 12:28] VITALS: BP 158/74; PULSE 91
[2021-02-09] MEDS ORDERED: Metoprolol Succinate 25 MG Tab.ER PO SCH (14:00)
== END 2021-02-09 14:00 | disposition home or self-care (01) ==
LOC: MW.ED 12:15 → MW.MS 15:29
PROVIDERS: ADMIT Student in an Organized Health Care Education/Training Program; ATTEND Student in an Organized Health Care Education/Training Program
DX: R07.9 Chest pain, unspecified (principal); I25.10 Atherosclerotic heart disease of native coronary artery without angina pectoris; I10 Essential (primary) hypertension; I25.2 Old myocardial infarction; J45.909 Unspecified asthma, uncomplicated; M15.9 Polyosteoarthritis, unspecified; Z20.822 Contact with and (suspected) exposure to COVID-19; Z95.810 Presence of automatic (implantable) cardiac defibrillator; Z88.8 Allergy status to other drugs, medicaments and biological substances; Z88.5 Allergy status to narcotic agent; Z88.2 Allergy status to sulfonamides; Z79.82 Long term (current) use of aspirin; Z79.899 Other long term (current) drug therapy; Z87.891 Personal history of nicotine dependence
CPT/HCPCS: 36415; 71046; 80048; 80053; 81003; 82550; 83690; 83735; 84484; 85025; 85730; 93005; A9270; U0002; 93010; 99284; 99285-25

== ENCOUNTER 2021-07-30 23:22 | Emergency (ER) | payer MEDICARE, OTHER ==
[2021-07-31] MEDS ORDERED: Octyl 2-Cyanoacrylate 1 Tube ONE (00:15)
[2021-07-31] MEDS ORDERED: Octyl 2-Cyanoacrylate 1 Tube TOP ONE (00:28)
--- NOTE | 2021-07-31 01:15 | EDM.PDOC ---
ED HPI GENERAL MEDICAL PROBLEM - General Chief Complaint: Cardiovascular Problem Stated Complaint: BLEEDING, DIZZY, CAN'T MOVE LEFT ARM Time Seen by Provider: 07/31/21 01:14 - History of Present Illness INITIAL COMMENTS - FREE TEXT/NARRATIVE: HISTORY AND PHYSICAL: History of present illness: This is an 86-year-old female who presents ER today secondary to bleeding from the incision site at the site of her pacemaker. Patient reports that she was [facility] earlier today and had her battery changed. She reports that she feels that the coffee roaster helper did not put the pacemaker back in the same place and it is more lateral than it should be she reports that she thinks that moving her arm caused injury to the incision resulting in the bleeding. Patient denies any other symptomatology. Patient has no recent fevers, shakes, chills, nausea, vomiting, diarrhea. Patient reports that the gauze such as soaked with blood but denies any pulsatile type bleeding or excessive bleeding. Review of systems: As per history of present illness and below otherwise all systems reviewed and negative. Past medical history: As per history of present illness and as reviewed below otherwise noncontributory. Surgical history: As per history of present illness and as reviewed below otherwise noncontributory. Social history: No reported history of drug abuse. Family history: As per history of present illness and as reviewed below otherwise noncontributory. Physical exam: This patient was seen and evaluated during the 2019 SARS-CoV-2 novel coronavirus pandemic period. Community viral transmission is ongoing at time of this encounter and the emergency department is operating under pandemic response procedures. Constitutional: Patient is oriented to person, place, and time. Appears well- developed and well-nourished. No distress. HEENT: Moist mucous membranes Head: Normocephalic and atraumatic Eyes: Right eye exhibits no discharge. Left eye exhibits no discharge. No scleral icterus Neck: Normal range of motion. No tracheal deviation present. Cardiovascular: Normal rate and regular rhythm. Pulmonary: Effort normal, no respiratory distress. Abdominal: No distention Musculoskeletal: Normal range of motion Neurologic: Alert and oriented to person, place and time. Skin: [place], warm and dry. Psychiatric: Normal mood and affect. Behavior is normal. Judgment and thought content normal. Nursing note and vital signs have been reviewed Patient's ER physical exam is significant for a well-developed well-nourished 86-year-old female who has a pacemaker in her left anterior chest wall near her left shoulder. Dressing was removed as well as the Steri-Strips. Patient does have bruising from the medial incisions of the site. Wound was cleaned with sterile gauze. No active bleeding was identified while I monitor her. I did apply Dermabond to the area and Steri-Strips to assist with healing. Sterile gauze was placed on top as well as a OpSite. Diagnostics: [] Therapeutics: Dressing was removed as well as the Steri-Strips. Patient does have bruising from the medial incisions of the site. Wound was cleaned with sterile gauze. No active bleeding was identified while I monitor her. I did apply Dermabond to the area and Steri-Strips to assist with healing. Sterile gauze was placed on top as well as a OpSite. Assessment and plan: 86-year-old female who presents ER today secondary to bleeding from the incision site of her pacemaker/defibrillator. Patient reports that she was at [facility] earlier today to have the batteries changed and on her way home she noticed that there was bleeding at the site and continued bleeding this evening. Patient had the area evaluated by me and there was some oozing of blood from the medial aspect of the incision. Pressure was applied and bleeding was controlled. Dermabond was applied to the site and Steri-Strips were applied. Patient tolerated procedure well. Patient be discharged home with instructions to call her coffee roaster helper in the morning for further instructions regarding management of her recently changed battery and incision site. Reassessment at the time of disposition demonstrates that the patient is in no acute distress. The patient has remained stable throughout the entire ED visit and is without objective evidence for acute process requiring urgent intervention or hospitalization. The patient is stable for discharge, counseling is provided as documented above, discussed symptomatic treatment and specific conditions for return. I have spoken with the patient/caregiver and discussed todays findings, in addition to providing specific details for the plan of care. Questions are answered and there is agreement with the plan. Definitive disposition and diagnosis as appropriate pending reevaluation and review of above. - Related Data Allergies Allergy/AdvReac Type Severity Reaction Status Date / Time albuterol Allergy Other Verified 07/30/21 23:28 codeine Allergy Other Verified 07/30/21 23:28 gabapentin Allergy Other Verified 07/30/21 23:28 lisinopril Allergy Other Verified 07/30/21 23:28 meperidine HCl [From Demerol] Allergy Other Verified 07/30/21 23:28 oxycodone Allergy Other Verified 07/30/21 23:28 propoxyphene napsylate Allergy Other Verified 07/30/21 23:28 [From Darvocet-N] simvastatin Allergy Other Verified 07/30/21 23:28 Sulfa (Sulfonamide Allergy Other Verified 07/30/21 23:28 Antibiotics) tramadol Allergy Headache Verified 07/30/21 23:28 Home Meds: Home Meds Aspirin [Halfprin] 81 mg PO DAILY 04/14/14 [History] Losartan [Cozaar] 12.5 mg PO BID 03/14/19 [History] Metoprolol Succinate [Toprol Xl] 12.5 mg PO BID 03/14/19 [History] predniSONE [predniSONE 5 MG/5 ML] 5 mg PO DAILY 02/08/21 [History] Nitroglycerin [Nitrostat] 0.4 mg SL ONETIME PRN #7 tab.sl 02/09/21 [Rx] Past Medical History HEENT History: Reports: Cataract, Impaired Vision, Otitis Media, Other (See Below) Other HEENT History: "dry ears" Cardiovascular History: Reports: Hypertension, [place], Pacemaker, Prior Cardiac Arrest, Stents Other Cardiovascular History: (3) [place] Respiratory History: Reports: Asthma Gastrointestinal History: Reports: None Genitourinary History: Reports: None ROTOR PILOT History: Reports: , Spontaneous Musculoskeletal History: Reports: Osteoarthritis, RA Neurological History: Reports: None Psychiatric History: Reports: None Endocrine/Metabolic History: Reports: None Hematologic History: Reports: Anemia Other Hematologic History: pt been on Iron pill since she was 22 yrs old Immunologic History: Reports: None Oncologic (Cancer) History: Reports: None Dermatologic History: Reports: None - Infectious Disease History Infectious Disease History: Reports: Chicken Pox, Measles, Mumps, Pertussis (Whooping Cough) - Past Surgical History Head Surgeries/Procedures: Reports: Other (See Below) HEENT Surgical History: Reports: Cataract Surgery, Eye Surgery, Tonsillectomy Cardiovascular Surgical History: Reports: Pacer, Other (See Below) Other Cardiovascular Surgeries/Procedures: Implanted Defibrilator Respiratory Surgical History: Reports: None GI Surgical History: Reports: Appendectomy Female Surgical History: Reports: None Endocrine Surgical History: Reports: None Neurological Surgical History: Reports: None Musculoskeletal Surgical History: Reports: Carpal Tunnel, Other (See Below) Other Musculoskeletal Surgeries/Procedures:: back surgery 2013 Oncologic Surgical History: Reports: None Dermatological Surgical History: Reports: None Social & Family History - Family History Family Medical History: No Pertinent Family History - Tobacco Use Tobacco Use Status *Q: Never Tobacco User - Caffeine Use Caffeine Use: Reports: Coffee Caffeine Use Comment: 3/day - Recreational Drug Use Recreational Drug Use: No ED ROS GENERAL - Review of Systems Review Of Systems: See Below ED EXAM, GENERAL - Physical Exam Exam: See Below Course - Vital Signs Last Recorded V/S: Last Vital Signs Temp 96.4 F L 07/30/21 23:33 Pulse 88 07/30/21 23:33 Resp 20 07/30/21 23:33 BP 123/72 07/30/21 23:33 Pulse Ox 98 07/30/21 23:33 - Orders/Labs/Meds Meds: Medications Discontinued Medications Generic Name Dose Route Start Last Admin Trade Name Patsy PRN Reason Stop Dose Admin Octyl Cyanoacrylate Confirm 07/31/21 00:15 07/31/21 00:42 Octyl 2-Cyanoacrylate 1 Tube Administered 07/31/21 00:16 Not Given Dose 1 applic .ROUTE .STK-MED ONE Octyl Cyanoacrylate 1 applic 07/31/21 00:28 07/31/21 00:41 Octyl 2-Cyanoacrylate 1 Tube TOP 07/31/21 00:29 1 applic ONETIME ONE Administration Departure - Departure Time of Disposition: 01:14 Disposition: Home, Self-Care 01 Condition: Good Clinical Impression: Postoperative bleeding from incision Instructions: Tissue Adhesive Wound Care, Wound Care, Adult Referrals: Aneudy Wilde MD [Primary Care Provider] - Additional Instructions: You were seen and evaluated in the ER today secondary to bleeding from the incision of your defibrillator/pacemaker battery change. Please keep the dressing on. Please keep an eye on it and if it continues to have a significant amount of bleeding, return to the ED for that we can reevaluate you. Please call your coffee roaster helper in the morning for further instructions regarding management of the wound as well as to discuss with him your concerns regarding the location of the defibrillator/pacemaker. The following information is given to patients seen in the emergency department who are being discharged to home. This information is to outline your options for follow-up care. We provide all patients seen in our emergency department with a follow-up referral. The need for follow-up, as well as the timing and circumstances, are variable depending upon the specifics of your emergency department visit. If you don't have a primary care physician on staff, we will provide you with a referral. We always advise you to contact your personal physician following an emergency department visit to inform them of the circumstance of the visit and for follow-up with them and/or the need for any referrals to a consulting specialist. The emergency department will also refer you to a specialist when appropriate. This referral assures that you have the opportunity for follow-up care with a specialist. All of these measure are taken in an effort to provide you with optimal care, which includes your follow-up. Under all circumstances we always encourage you to contact your private physician who remains a resource for coordinating your care. When calling for follow-up care, please make the office aware that this follow-up is from your recent emergency room visit. If for any reason you are refused follow-up, please contact the [facility] Emergency Department at and asked to speak to the emergency department charge nurse. [facility] - Primary Care [address] [place] [id number] [address] Sepsis Event Note (ED) - Evaluation Sepsis Screening Result: No Definite Risk - Focused Exam Vital Signs: Vital Signs Temp Pulse Resp BP Pulse Ox 07/30/21 23:33 96.4 F L 88 20 123/72 98
[2021-07-31 01:26] VITALS: BP 121/77; PULSE 83
== END 2021-07-31 01:27 | disposition home or self-care (01) ==
LOC: MW.ED 23:22
DX: I97.618 Postprocedural hemorrhage of a circulatory system organ or structure following other circulatory system procedure (principal); S21.112A Laceration without foreign body of left front wall of thorax without penetration into thoracic cavity, initial encounter; I10 Essential (primary) hypertension; I25.2 Old myocardial infarction; M19.90 Unspecified osteoarthritis, unspecified site; Z95.0 Presence of cardiac pacemaker; Z88.5 Allergy status to narcotic agent; Z88.8 Allergy status to other drugs, medicaments and biological substances; Z88.2 Allergy status to sulfonamides; Z79.82 Long term (current) use of aspirin; Z79.899 Other long term (current) drug therapy; W26.8XXA Contact with other sharp object(s), not elsewhere classified, initial encounter
CPT/HCPCS: 12001; 99283; A9270

== ENCOUNTER 2021-08-02 14:11 | Emergency (ER) | payer MEDICARE, OTHER ==
[2021-08-02] MEDS ORDERED: Sodium Chloride 0.9% 2.5 ML Syringe FLUSH PRN (17:12)
[2021-08-02] MEDS ORDERED: Sodium Chloride 0.9% 10 ML Syringe FLUSH PRN (17:12)
--- NOTE | 2021-08-02 17:28 | EDM.PDOC ---
ED HPI GENERAL MEDICAL PROBLEM - General Chief Complaint: Upper Extremity Injury/Pain Stated Complaint: HAD SURGERY ON FOR PACEMAKER HAS A BLEEDER Time Seen by Provider: 08/02/21 17:08 Source of Information: Reports: Patient History Limitations: Reports: No Limitations - History of Present Illness INITIAL COMMENTS - FREE TEXT/NARRATIVE: 86-year-old female presents for concern for bleeding from pacemaker site. Patient was seen here 2 days ago for similar. She had a pacemaker changed last . She notes that this was complicated by bleeding from the incision sit e which was addressed in the emergency department 2 days ago, please see note. She feels like today may be it is bleeding on the inside as her arm has become swollen and ecchymotic. She also feels weak. Left Arm Pain Score (Numeric/FACES): 4 - Related Data Allergies Allergy/AdvReac Type Severity Reaction Status Date / Time albuterol Allergy Other Verified 08/02/21 17:09 codeine Allergy Other Verified 08/02/21 17:09 gabapentin Allergy Other Verified 08/02/21 17:09 lisinopril Allergy Other Verified 08/02/21 17:09 meperidine HCl [From Demerol] Allergy Other Verified 08/02/21 17:09 oxycodone Allergy Other Verified 08/02/21 17:09 propoxyphene napsylate Allergy Other Verified 08/02/21 17:09 [From Darvocet-N] simvastatin Allergy Other Verified 08/02/21 17:09 Sulfa (Sulfonamide Allergy Other Verified 08/02/21 17:09 Antibiotics) tramadol Allergy Headache Verified 08/02/21 17:09 Home Meds: Home Meds Aspirin [Halfprin] 81 mg PO DAILY 04/14/14 [History] Losartan [Cozaar] 12.5 mg PO BID 03/14/19 [History] Metoprolol Succinate [Toprol Xl] 12.5 mg PO BID 03/14/19 [History] predniSONE [predniSONE 5 MG/5 ML] 5 mg PO DAILY 02/08/21 [History] Nitroglycerin [Nitrostat] 0.4 mg SL ONETIME PRN #7 tab.sl 02/09/21 [Rx] Past Medical History HEENT History: Reports: Cataract, Impaired Vision, Otitis Media, Other (See Below) Other HEENT History: "dry ears" Cardiovascular History: Reports: Hypertension, [place], Pacemaker, Prior Cardiac Arrest, Stents Other Cardiovascular History: (3) [place] Respiratory History: Reports: Asthma Gastrointestinal History: Reports: None Genitourinary History: Reports: None CHANGE BOOTH ATTENDANT History: Reports: , Spontaneous Musculoskeletal History: Reports: Osteoarthritis, RA Neurological History: Reports: None Psychiatric History: Reports: None Endocrine/Metabolic History: Reports: None Hematologic History: Reports: Anemia Other Hematologic History: pt been on Iron pill since she was 22 yrs old Immunologic History: Reports: None Oncologic (Cancer) History: Reports: None Dermatologic History: Reports: None - Infectious Disease History Infectious Disease History: Reports: Chicken Pox, Measles, Mumps, Pertussis (Whooping Cough) - Past Surgical History Head Surgeries/Procedures: Reports: Other (See Below) HEENT Surgical History: Reports: Cataract Surgery, Eye Surgery, Tonsillectomy Cardiovascular Surgical History: Reports: Pacer, Other (See Below) Other Cardiovascular Surgeries/Procedures: Implanted Defibrilator Respiratory Surgical History: Reports: None GI Surgical History: Reports: Appendectomy Female Surgical History: Reports: None Endocrine Surgical History: Reports: None Neurological Surgical History: Reports: None Musculoskeletal Surgical History: Reports: Carpal Tunnel, Other (See Below) Other Musculoskeletal Surgeries/Procedures:: back surgery 2013 Oncologic Surgical History: Reports: None Dermatological Surgical History: Reports: None Social & Family History - Family History Family Medical History: No Pertinent Family History - Tobacco Use Tobacco Use Status *Q: Never Tobacco User - Caffeine Use Caffeine Use: Reports: Coffee Caffeine Use Comment: 3/day - Recreational Drug Use Recreational Drug Use: No Review of Systems - Review of Systems Review Of Systems: Comprehensive ROS is negative, except as noted in HPI. ED EXAM, GENERAL - Physical Exam Exam: See Below Exam Limited By: No Limitations General Appearance: Alert, WD/WN, No Apparent Distress Ears: Hearing Grossly Normal Throat/Mouth: Normal Voice, No Airway Compromise Head: Atraumatic, Normocephalic Neck: Normal Inspection Respiratory/Chest: No Respiratory Distress, Lungs Clear, Normal Breath Sounds, No Accessory Muscle Use, Other (Steri-Strips left chest wall without active bleeding or without bloodsoaked gauze) Cardiovascular: Normal Peripheral Pulses, Regular Rate, Rhythm Extremities: Other (Ecchymosis of left upper extremity) Neurological: Alert, Normal Cognition, Normal Gait Psychiatric: Normal Affect, Normal Mood Skin Exam: Warm, Dry, Intact, Normal Color Course - Vital Signs Last Recorded V/S: Last Vital Signs Temp 98.5 F 08/02/21 17:12 Pulse 74 08/02/21 18:18 Resp 18 08/02/21 18:18 BP 169/74 H 08/02/21 18:18 Pulse Ox 100 08/02/21 18:18 - Orders/Labs/Meds Orders: Active Orders 24 hr Category Date Time Status Sodium Chloride 0.9% [Saline Flush] Med 08/02/21 17:12 Active 10 ml FLUSH ASDIRECTED PRN Sodium Chloride 0.9% [Saline Flush] Med 08/02/21 17:12 Active 2.5 ml FLUSH ASDIRECTED PRN Saline Lock Insert [OM.PC] Stat Oth 08/02/21 17:12 Ordered Medication Orders Sodium Chloride (Sodium Chloride 0.9% 10 Ml Syringe) 10 ml FLUSH ASDIRECTED PRN PRN Reason: Keep Vein Open Sodium Chloride (Sodium Chloride 0.9% 2.5 Ml Syringe) 2.5 ml FLUSH ASDIRECTED PRN PRN Reason: Keep Vein Open Labs: Laboratory Tests 08/02/21 08/02/21 Range/Units 17:24 17:24 WBC 9.93 (4.0-11.0) K/uL RBC 3.88 L (4.30-5.90) M/uL Hgb 11.6 L (12.0-16.0) g/dL Hct 34.6 L (36.0-46.0) % MCV 89.2 (80.0-98.0) fL MCH 29.9 (27.0-32.0) pg MCHC 33.5 (31.0-37.0) g/dL RDW Std Deviation 46.1 (28.0-62.0) fl RDW Coeff of Hari 14 (11.0-15.0) % Plt Count 186 (150-400) K/uL MPV 9.90 (7.40-12.00) fL Neut % (Auto) 77.7 (48.0-80.0) % Lymph % (Auto) 13.0 L (16.0-40.0) % [place] % (Auto) 8.2 (0.0-15.0) % Eos % (Auto) 1.0 (0.0-7.0) % Baso % (Auto) 0.1 (0.0-1.5) % Neut # (Auto) 7.7 H (1.4-5.7) K/uL Lymph # (Auto) 1.3 (0.6-2.4) K/uL [place] # (Auto) 0.8 (0.0-0.8) K/uL Eos # (Auto) 0.1 (0.0-0.7) K/uL Baso # (Auto) 0.0 (0.0-0.1) K/uL Nucleated RBC % 0.0 /100WBC Nucleated RBCs # 0 K/uL Sodium 136 (136-145) mmol/L Potassium 3.9 (3.5-5.1) mmol/L Chloride 99 (98-107) mmol/L Carbon Dioxide 26.8 (21.0-32.0) mmol/L BUN 16 (7.0-18.0) mg/dL Creatinine 0.7 (0.6-1.0) mg/dL Est Cr Clr Drug Dosing 43.70 mL/min Estimated GFR (MDRD) > 60.0 ml/min Glucose 98 (74-106) mg/dL Calcium 8.1 L (8.5-10.1) mg/dL Total Bilirubin 0.6 (0.2-1.0) mg/dL AST 24 (15-37) IU/L ALT 21 (14-63) IU/L Alkaline Phosphatase 50 (46-116) U/L Total Protein 5.9 L (6.4-8.2) g/dL Albumin 3.5 (3.4-5.0) g/dL Globulin 2.4 L (2.6-4.0) g/dL Albumin/Globulin Ratio 1.5 (0.9-1.6) Meds: Medications Generic Name Dose Route Start Last Admin Trade Name Freq PRN Reason Stop Dose Admin Sodium Chloride 10 ml 08/02/21 17:12 Sodium Chloride 0.9% 10 Ml Syringe FLUSH ASDIRECTED PRN Keep Vein Open Sodium Chloride 2.5 ml 08/02/21 17:12 Sodium Chloride 0.9% 2.5 Ml Syringe FLUSH ASDIRECTED PRN Keep Vein Open - Re-Assessments/Exams Free Text/Narrative Re-Assessment/Exam: 08/02/21 17:28 We will get labs to check for anemia. 08/02/21 18:35 Labs grossly unremarkable. Will discharge patient with follow-up parcel post delivery tomorrow morning Departure - Departure Time of Disposition: 18:35 Disposition: Home, Self-Care 01 Condition: Good Clinical Impression: Pacemaker complications Qualifiers: Encounter type: initial encounter Qualified Code(s): T82.9XXA - Unspecified complication of cardiac and vascular prosthetic device, implant and graft, initial encounter - Discharge Information Instructions: Pacemaker Battery Change Referrals: Aneudy Wilde MD [Primary Care Provider] - Forms: ED Department Discharge Additional Instructions: The following information is given to patients seen in the emergency department who are being discharged to home. This information is to outline your options for follow-up care. We provide all patients seen in our emergency department with a follow-up referral. The need for follow-up, as well as the timing and circumstances, are variable depending upon the specifics of your emergency department visit. If you don't have a primary care physician on staff, we will provide you with a referral. We always advise you to contact your personal physician following an emergency department visit to inform them of the circumstance of the visit and for follow-up with them and/or the need for any referrals to a consulting specialist. The emergency department will also refer you to a specialist when appropriate. This referral assures that you have the opportunity for follow-up care with a specialist. All of these measure are taken in an effort to provide you with optimal care, which includes your follow-up. Under all circumstances we always encourage you to contact your private physician who remains a resource for coordinating your care. When calling for follow-up care, please make the office aware that this follow-up is from your recent emergency room visit. If for any reason you are refused follow-up, please contact the [facility] Emergency Department at and asked to speak to the emergency department charge nurse. Please follow up with your primary care physician. If you do not have a primary care physician, see below: [facility] [address] [place] [id number] [facility] [address] [place] [id number] [facility] [address] [place] [address] Sepsis Event Note (ED) - Focused Exam Vital Signs: Vital Signs Temp Pulse Resp BP Pulse Ox 08/02/21 18:18 74 18 169/74 H 100 08/02/21 17:56 75 18 108/73 99 08/02/21 17:12 98.5 F 77 18 180/87 H 98 - My Orders Last 24 Hours: My Active Orders 08/02/21 17:12 Sodium Chloride 0.9% [Saline Flush] 10 ml FLUSH ASDIRECTED PRN Sodium Chloride 0.9% [Saline Flush] 2.5 ml FLUSH ASDIRECTED PRN Saline Lock Insert [OM.PC] Stat - Assessment/Plan Last 24 Hours: My Active Orders 08/02/21 17:12 Sodium Chloride 0.9% [Saline Flush] 10 ml FLUSH ASDIRECTED PRN Sodium Chloride 0.9% [Saline Flush] 2.5 ml FLUSH ASDIRECTED PRN Saline Lock Insert [OM.PC] Stat
[2021-08-02 17:58] LABS: BLOOD UREA NITROGEN,BUN 16 mg/dL (7.0-18.0); CARBON DIOXIDE,CO2 26.8 mmol/L (21.0-32.0); CHLORIDE,CL 99 mmol/L (98-107); GLUCOSE RANDOM 98 mg/dL (74-106); POTASSIUM,K 3.9 mmol/L (3.5-5.1); SODIUM,NA 136 mmol/L (136-145)
[2021-08-02 18:18] VITALS: BP 169/74; PULSE 74
== END 2021-08-02 18:47 | disposition home or self-care (01) ==
LOC: MW.ED 14:11
DX: T82.9XXA Unspecified complication of cardiac and vascular prosthetic device, implant and graft, initial encounter (principal); I10 Essential (primary) hypertension; I25.2 Old myocardial infarction; Z88.5 Allergy status to narcotic agent; Z88.8 Allergy status to other drugs, medicaments and biological substances; Z88.2 Allergy status to sulfonamides; Z88.4 Allergy status to anesthetic agent; Z79.82 Long term (current) use of aspirin; Z79.899 Other long term (current) drug therapy
CPT/HCPCS: 36415; 80053; 85025; 99283

== ENCOUNTER 2021-10-19 13:58 | Emergency (ER) | payer MEDICARE, OTHER ==
[2021-10-19] MEDS ORDERED: Aspirin 81 MG Tab.Chew PO ONE (14:11)
--- NOTE | 2021-10-19 14:18 | EDM.PDOC ---
<Jerome Martínez - Last Filed: 10/19/21 19:16> ED HPI GENERAL MEDICAL PROBLEM - General Stated Complaint: CHEST PAIN ARM PAIN Time Seen by Provider: 10/19/21 14:11 - History of Present Illness INITIAL COMMENTS - FREE TEXT/NARRATIVE: CHIEF COMPLAINT(S): Neck pain HISTORY OF PRESENT ILLNESS: This is a 86-year-old woman with a past medical history of prior CAD status post stent placement and pacemaker placement who comes to the emergency department with a chief complaint of neck pain. The patient states that she presents to the emergency department with right neck pain. She states that the neck pain radiates on from her right shoulder up into her neck especially when she is walking. She describes this pain as achy and rated 4-5 out of 10. She denies any numbness, tingling, weakness or shortness of breath. She states that upon sitting down it resolves. She states that it feels similar to the last time she had a heart attack and thinks that this is a preheart attack. She denies any overt chest pain, lower extremity edema, recent travel, recent surgery or prior history of DVT or PE. She states that the pain seems to resolve on its own and she states that she currently has no pain. Pain does not radiate anywhere otherwise. In addition, she states that she has had multiple episodes where she starts to feel her heart race and then she feels faint. She states that she has not passed out. She states that she has had these episodes since she was little. REVIEW OF SYSTEMS: Constitutional: Denies fever, chills. Eyes: Denies eye pain Ears, Nose, Mouth, & Throat: Denies earache Cardiovascular: Positive for palpitations and presyncope. Denies chest pain Respiratory: Denies shortness of breath Gastrointestinal: Denies Nausea, vomiting, diarrhea, hematochezia. Genitourinary: Denies hematuria Skin:Denies a rash MSK: Positive for right neck pain Neurological: Denies blurred vision, numbness, tingling, weakness psychiatric: Denies depression PAST MEDICAL HISTORY: As per history of present illness and as reviewed below otherwise noncontributory. SURGICAL HISTORY: As per history of present illness and as reviewed below otherwise noncontributory. SOCIAL HISTORY: As per history of present illness and as reviewed below otherwise noncontributory. FAMILY HISTORY: As per history of present illness and as reviewed below otherwise noncontributory. EXAMINATION OF ORGAN SYSTEMS/BODY AREAS: Constitutional: Blood pressure is 175/86, heart rate 66, respiratory rate 16 with an oxygen saturation of 98% on room air. Temperature 36.6 General: Well-appearing elderly woman who is in no acute distress Psychiatric: Appropriate mood and affect. Eyes: No scleral icterus or conjunctival erythema ENMT: Moist mucous membranes. No pharyngeal erythema Cardiovascular: Regular, rate, and rhythm. No gallops, murmurs, or rubs. Bilateral upper extremity pulses symmetric and intact. No peripheral edema. No JVD. Respiratory: Lungs clear to auscultation bilaterally. No wheezes, rales, or rhonchi. Gastrointestinal: Soft, non-tender, non-distended. Normoactive bowel sounds Genitourinary: No suprapubic tenderness Musculoskeletal: Normal range of motion. Skin: No lesions or abrasions. Neurological: Alert, GCS 15 MEDICAL DECISION MAKING AND COURSE IN THE ED WITH INTERPRETATION/REVIEW OF DIAGNOSTIC STUDIES: This is an 86-year-old woman with a past medical history of CAD status post stent and pacemaker placement who presents to the emergency department with exertional neck pain who has normal vital signs at this time. EKG was obtained which revealed a paced rhythm therefore difficult to assess for STEMI however does not meet Scar[place] criteria at this time. At this time the patient's heart score is elevated therefore we will obtain a cardiac work-up. Cardiac monitoring at this time did reveal sinus rhythm and pulse oximetry with good waveform was 98% on room air. Laboratory: CBC is unremarkable. CMP is unremarkable. Troponin is negative. Covid is negative. The radiological images were viewed by myself along with reading the report from the radiologist. Chest x-ray does not reveal any acute cardiopulmonary process. After labs and imaging we did obtain the interrogation of the patient's pacemaker. The patient did have an episode of a flutter with 2-1 conduction at a heart rate of 170 otherwise she has a high PVC burden. Pacemaker is working appropriately. After imaging and labs I did discuss the results with the patient. At this time I discussed with her that I would like to speak with her electrician third for further recommendations. She states that her electrician third was Dr. Correa at [facility]. Therefore I contacted [facility] in [place] and Dr. Correa is not on-call however Dr. Pulido is on-call. At this time the electrician third is in the operating room. They stated that they would call back as soon as he was out of the operating room. We did contact [facility] in [place] multiple times following this and the electrician third was in the operating room. At this time I do still believe the patient does require discussion with a electrician third. We will obtain a repeat troponin. Patient was signed out to [facility] team physician pending repeat troponin and final disposition and discussion with cardiology. DISPOSITION: The patient was signed out to Dr. Nichole pending repeat troponin and final disposition and discussion with cardiology CONDITION: Fair PROCEDURES: Cardiac monitoring interpretation, pulse oximetry interpretation FINAL IMPRESSION(S)/DIAGNOSES: 1. Acute atypical stable angina 2. Acute palpitations likely secondary to intermittent episodes of atrial flutter 3. Acute presyncopal episode likely secondary #2 Jerome Martínez M.D. neck Pain Score (Numeric/FACES): 4 - Related Data Allergies Allergy/AdvReac Type Severity Reaction Status Date / Time albuterol Allergy Other Verified 10/19/21 15:58 codeine Allergy Other Verified 10/19/21 15:58 gabapentin Allergy Other Verified 10/19/21 15:58 lisinopril Allergy Other Verified 10/19/21 15:58 meperidine HCl [From Demerol] Allergy Other Verified 10/19/21 15:58 oxycodone Allergy Other Verified 10/19/21 15:58 propoxyphene napsylate Allergy Other Verified 10/19/21 15:58 [From Darvocet-N] simvastatin Allergy Other Verified 10/19/21 15:58 Sulfa (Sulfonamide Allergy Other Verified 10/19/21 15:58 Antibiotics) tramadol Allergy Headache Verified 10/19/21 15:58 Home Meds: Home Meds Aspirin [Halfprin] 81 mg PO DAILY 04/14/14 [History] Losartan [Cozaar] 12.5 mg PO BID 03/14/19 [History] Metoprolol Succinate [Toprol Xl] 12.5 mg PO BID 03/14/19 [History] Nitroglycerin [Nitrostat] 0.4 mg SL ONETIME PRN #7 tab.sl 02/09/21 [Rx] Past Medical History HEENT History: Reports: Cataract, Impaired Vision, Otitis Media, Other (See Below) Other HEENT History: "dry ears" Cardiovascular History: Reports: Hypertension, NH, Pacemaker, Prior Cardiac Arrest, Stents Other Cardiovascular History: (3) NH Respiratory History: Reports: Asthma Gastrointestinal History: Reports: None Genitourinary History: Reports: None [employer] History: Reports: , Spontaneous Musculoskeletal History: Reports: Osteoarthritis, RA Neurological History: Reports: None Psychiatric History: Reports: None Endocrine/Metabolic History: Reports: None Hematologic History: Reports: Anemia Other Hematologic History: pt been on Iron pill since she was 22 yrs old Immunologic History: Reports: None Oncologic (Cancer) History: Reports: None Dermatologic History: Reports: None - Infectious Disease History Infectious Disease History: Reports: Chicken Pox, Measles, Mumps, Pertussis (Whooping Cough) - Past Surgical History Head Surgeries/Procedures: Reports: Other (See Below) HEENT Surgical History: Reports: Cataract Surgery, Eye Surgery, Tonsillectomy Cardiovascular Surgical History: Reports: Pacer, Other (See Below) Other Cardiovascular Surgeries/Procedures: Implanted Defibrilator Respiratory Surgical History: Reports: None GI Surgical History: Reports: Appendectomy Female Surgical History: Reports: None Endocrine Surgical History: Reports: None Neurological Surgical History: Reports: None Musculoskeletal Surgical History: Reports: Carpal Tunnel, Other (See Below) Other Musculoskeletal Surgeries/Procedures:: back surgery 2012 Oncologic Surgical History: Reports: None Dermatological Surgical History: Reports: None Social & Family History - Family History Family Medical History: No Pertinent Family History - Caffeine Use Caffeine Use: Reports: Coffee Caffeine Use Comment: 3/day ED ROS GENERAL - Review of Systems Review Of Systems: See Below ED EXAM, GENERAL - Physical Exam Exam: See Below Departure - Departure Disposition: Home, Self-Care 01 Clinical Impression: Palpitations Chest pain Qualifiers: Chest pain type: unspecified Qualified Code(s): R07.9 - Chest pain, unspecified - Discharge Information Instructions: Nonspecific Chest Pain, Adult, [id number], Palpitations Referrals: Eliot Damon MD [Primary Care Provider] - Additional Instructions: Dr. Pulido will call you tomorrow. Call the office if they don't call you. Return if you have any ain you can't relieve by resting. [facility] - Primary [facility] [address] [place] [id number] [facility] [address] [place] [id number] The following information is given to patients seen in the emergency department who are being discharged to home. This information is to outline your options for follow-up care. We provide all patients seen in our emergency department with a follow-up referral. The need for follow-up, as well as the timing and circumstances, are variable depending upon the specifics of your emergency department visit. If you don't have a primary care physician on staff, we will provide you with a referral. We always advise you to contact your personal physician following an emergency department visit to inform them of the circumstance of the visit and for follow-up with them and/or the need for any referrals to a consulting sp ecialist. The emergency department will also refer you to a specialist when appropriate. This referral assures that you have the opportunity for follow-up care with a specialist. All of these measure are taken in an effort to provide you with optimal care, which includes your follow-up. <Mookie Amin - Last Filed: 10/19/21 20:05> Course - Vital Signs Last Recorded V/S: Last Vital Signs Temp 36.6 C 10/19/21 13:58 Pulse 63 10/19/21 19:11 Resp 16 10/19/21 13:58 BP 153/69 H 10/19/21 19:11 Pulse Ox 95 10/19/21 19:11 - Orders/Labs/Meds Orders: Active Orders 24 hr Category Date Time Status Cardiac Monitoring [RC] . DIRECTED Care 10/19/21 14:13 Active Pulse Oximetry [RC] ASDIRECTED Care 10/19/21 14:13 Active Labs: Laboratory Tests 10/19/21 10/19/21 10/19/21 Range/Units 14:30 14:30 14:36 WBC 8.67 (4.0-11.0) K/uL RBC 4.71 (4.30-5.90) M/uL Hgb 13.9 (12.0-16.0) g/dL Hct 42.4 (36.0-46.0) % MCV 90.0 (80.0-98.0) fL MCH 29.5 (27.0-32.0) pg MCHC 32.8 (31.0-37.0) g/dL RDW Std Deviation 45.7 (28.0-62.0) fl RDW Coeff of Hari 14 (11.0-15.0) % Plt Count 231 (150-400) K/uL MPV 10.10 (7.40-12.00) fL Neut % (Auto) 79.3 (48.0-80.0) % Lymph % (Auto) 13.6 L (16.0-40.0) % Sampson % (Auto) 6.2 (0.0-15.0) % Eos % (Auto) 0.8 (0.0-7.0) % Baso % (Auto) 0.1 (0.0-1.5) % Neut # (Auto) 6.9 H (1.4-5.7) K/uL Lymph # (Auto) 1.2 (0.6-2.4) K/uL Sampson # (Auto) 0.5 (0.0-0.8) K/uL Eos # (Auto) 0.1 (0.0-0.7) K/uL Baso # (Auto) 0.0 (0.0-0.1) K/uL Nucleated RBC % 0.0 /100WBC Nucleated RBCs # 0 K/uL Sodium 135 L (136-145) mmol/L Potassium 4.0 (3.5-5.1) mmol/L Chloride 100 (98-107) mmol/L Carbon Dioxide 27.9 (21.0-32.0) mmol/L BUN 13 (7.0-18.0) mg/dL Creatinine 0.7 (0.6-1.0) mg/dL Est Cr Clr Drug Dosing TNP Estimated GFR (MDRD) > 60.0 ml/min Glucose 131 H (74-106) mg/dL Calcium 8.6 (8.5-10.1) mg/dL Magnesium 2.0 (1.8-2.4) mg/dL Total Bilirubin 0.5 (0.2-1.0) mg/dL AST 22 (15-37) IU/L ALT 23 (14-63) IU/L Alkaline Phosphatase 50 (46-116) U/L Troponin I < 0.050 (0.000-0.056) ng/mL Total Protein 6.4 (6.4-8.2) g/dL Albumin 3.5 (3.4-5.0) g/dL Globulin 2.9 (2.6-4.0) g/dL Albumin/Globulin Ratio 1.2 (0.9-1.6) SARS-CoV-2 RNA (OSEI) NEGATIVE (NEGATIVE) 10/19/21 Range/Units 18:34 WBC (4.0-11.0) K/uL RBC (4.30-5.90) M/uL Hgb (12.0-16.0) g/dL Hct (36.0-46.0) % MCV (80.0-98.0) fL MCH (27.0-32.0) pg MCHC (31.0-37.0) g/dL RDW Std Deviation (28.0-62.0) fl RDW Coeff of Hari (11.0-15.0) % Plt Count (150-400) K/uL MPV (7.40-12.00) fL Neut % (Auto) (48.0-80.0) % Lymph % (Auto) (16.0-40.0) % Sampson % (Auto) (0.0-15.0) % Eos % (Auto) (0.0-7.0) % Baso % (Auto) (0.0-1.5) % Neut # (Auto) (1.4-5.7) K/uL Lymph # (Auto) (0.6-2.4) K/uL Sampson # (Auto) (0.0-0.8) K/uL Eos # (Auto) (0.0-0.7) K/uL Baso # (Auto) (0.0-0.1) K/uL Nucleated RBC % /100WBC Nucleated RBCs # K/uL Sodium (136-145) mmol/L Potassium (3.5-5.1) mmol/L Chloride (98-107) mmol/L Carbon Dioxide (21.0-32.0) mmol/L BUN (7.0-18.0) mg/dL Creatinine (0.6-1.0) mg/dL Est Cr Clr Drug Dosing Estimated GFR (MDRD) ml/min Glucose (74-106) mg/dL Calcium (8.5-10.1) mg/dL Magnesium (1.8-2.4) mg/dL Total Bilirubin (0.2-1.0) mg/dL AST (15-37) IU/L ALT (14-63) IU/L Alkaline Phosphatase (46-116) U/L Troponin I < 0.050 (0.000-0.056) ng/mL Total Protein (6.4-8.2) g/dL Albumin (3.4-5.0) g/dL Globulin (2.6-4.0) g/dL Albumin/Globulin Ratio (0.9-1.6) SARS-CoV-2 RNA (OSEI) (NEGATIVE) Meds: Medications Discontinued Medications Generic Name Dose Route Start Last Admin Trade Name Freq PRN Reason Stop Dose Admin Aspirin 324 mg 10/19/21 14:11 10/19/21 14:32 Aspirin 81 Mg Tab.Chew PO 10/19/21 14:12 324 mg ONETIME ONE Administration - Re-Assessments/Exams Free Text/Narrative Re-Assessment/Exam: 10/19/21 20:[address] Pulido and he will call her tomorrow Departure - Departure Time of Disposition: 20:03 Condition: Good Sepsis Event Note (ED) - Focused Exam Vital Signs: Vital Signs Temp Pulse Resp BP Pulse Ox 10/19/21 19:11 63 153/69 H 95 10/19/21 18:22 61 134/62 96 10/19/21 17:01 131/61 10/19/21 16:01 57 L 124/60 97 10/19/21 15:01 64 132/67 98 10/19/21 13:58 36.6 C 66 16 175/86 H 98
[2021-10-19 15:10] LABS: BLOOD UREA NITROGEN,BUN 13 mg/dL (7.0-18.0); CARBON DIOXIDE,CO2 27.9 mmol/L (21.0-32.0); CHLORIDE,CL 100 mmol/L (98-107); GLUCOSE RANDOM 131 mg/dL (74-106); SODIUM,NA 135 mmol/L (136-145)
--- NOTE | 2021-10-19 15:26 | PCM.EKG ---
#1 Interpretation EKG Date: 10/19/21 Time: 13:59 Rhythm: Other (Atrial Sensed Ventricular Paced) Rate (Beats/Min): 72 Comparison: No Change (02/08/21) EKG Interpretation Comments: Atrial Sensed Ventricular Paced Rhythm. Limits eval for STEMI however no Scar[place] Criteria
--- NOTE | 2021-10-19 18:08 | CR ---
INDICATION: Chest pain. TECHNIQUE: Portable AP chest radiograph. COMPARISON: 02/08/2021. FINDINGS: No new focal pulmonary opacity, pneumothorax, or pleural effusion. Unchanged cardiac/mediastinal contours. Heavy aortic calcification. Left chest wall multi chamber cardiac pacer/AICD. IMPRESSION: No acute cardiopulmonary findings. Dictated by Alessio Gallardo MD @ 10/19/2021 6:07:05 PM Dictated by: Alessio Gallardo MD @ 10/19/2021 18:07:09 (Electronically Signed)
[2021-10-19 20:39] VITALS: BP 152/72; PULSE 77
== END 2021-10-19 20:43 | disposition home or self-care (01) ==
LOC: MW.ED 13:58
DX: I20.8 Other forms of angina pectoris (principal); R00.2 Palpitations; R55 Syncope and collapse; I10 Essential (primary) hypertension; I25.2 Old myocardial infarction; J45.909 Unspecified asthma, uncomplicated; M06.9 Rheumatoid arthritis, unspecified; Z88.8 Allergy status to other drugs, medicaments and biological substances; Z88.5 Allergy status to narcotic agent; Z88.2 Allergy status to sulfonamides; Z79.82 Long term (current) use of aspirin; Z79.899 Other long term (current) drug therapy; Z20.822 Contact with and (suspected) exposure to COVID-19
CPT/HCPCS: 36415; 71045; 80053; 83735; 84484; 85025; 93005; 99285; A9270; U0002

== ENCOUNTER 2022-01-15 13:28 | Emergency (ER) | payer MEDICARE, OTHER ==
[2022-01-15 14:14] LABS: BLOOD UREA NITROGEN,BUN 19 mg/dL (7.0-18.0); CARBON DIOXIDE,CO2 23.6 mmol/L (21.0-32.0); GLUCOSE RANDOM 112 mg/dL (74-106); POTASSIUM,K 4.4 mmol/L (3.5-5.1); SODIUM,NA 131 mmol/L (136-145)
[2022-01-15 14:22] LABS: CHLORIDE,CL 96 mmol/L (98-107)
[2022-01-15] MEDS ORDERED: Ondansetron 4 MG/2 ML SDV IVPUSH ONE (14:23)
[2022-01-15] MEDS ORDERED: Sodium Chloride 0.9% 500 ML IV SCH (14:30)
[2022-01-15 15:04] LABS: CORONAVIRUS COVID-19 NAA NEGATIVE (NEGATIVE); INFLUENZA A NAA NEGATIVE (NEGATIVE); INFLUENZA B NAA NEGATIVE (NEGATIVE)
[2022-01-15 16:45] VITALS: BP 121/49; PULSE 93
== END 2022-01-15 16:47 | disposition home or self-care (01) ==
LOC: MW.ED 13:28
DX: R11.2 Nausea with vomiting, unspecified (principal); R19.7 Diarrhea, unspecified; I25.2 Old myocardial infarction; I10 Essential (primary) hypertension; Z95.0 Presence of cardiac pacemaker; Z88.5 Allergy status to narcotic agent; Z88.8 Allergy status to other drugs, medicaments and biological substances; Z88.2 Allergy status to sulfonamides; Z20.822 Contact with and (suspected) exposure to COVID-19
CPT/HCPCS: 0240U; 36415; 80053; 81001; 83735; 84484; 85025; 93005; 99284; J7040; 93010; 99283

== ENCOUNTER 2022-08-30 11:39 | Emergency (ER) | payer MEDICARE, OTHER ==
[2022-08-30] MEDS ORDERED: Sodium Chloride 0.9% 10 ML Syringe FLUSH PRN (11:44)
[2022-08-30] MEDS ORDERED: Sodium Chloride 0.9% 2.5 ML Syringe FLUSH PRN (11:44)
[2022-08-30 12:28] LABS: CARBON DIOXIDE,CO2 27.7 mmol/L (21.0-32.0); POTASSIUM,K 4.3 mmol/L (3.5-5.1)
[2022-08-30 13:06] LABS: CORONAVIRUS COVID-19 NAA NEGATIVE (NEGATIVE); INFLUENZA A NAA NEGATIVE (NEGATIVE); INFLUENZA B NAA NEGATIVE (NEGATIVE); RESPIRATORY SYNCYTIAL VIR NAA NEGATIVE (NEGATIVE)
[2022-08-30 15:41] VITALS: BP 139/62; PULSE 73
== END 2022-08-30 15:39 | disposition home or self-care (01) ==
LOC: MW.ED 11:39
DX: I11.0 Hypertensive heart disease with heart failure (principal); I50.9 Heart failure, unspecified; J45.909 Unspecified asthma, uncomplicated; M06.9 Rheumatoid arthritis, unspecified; I25.2 Old myocardial infarction; D64.9 Anemia, unspecified; Z88.5 Allergy status to narcotic agent; Z88.8 Allergy status to other drugs, medicaments and biological substances; Z88.2 Allergy status to sulfonamides; Z79.82 Long term (current) use of aspirin; Z79.899 Other long term (current) drug therapy; Z20.822 Contact with and (suspected) exposure to COVID-19
CPT/HCPCS: 0241U; 36415; 71045; 80053; 83735; 83880; 84443; 84484; 85025; 99284; J3490

== ENCOUNTER 2023-06-02 23:38 | Observation (INO) | payer MEDICARE, OTHER ==
[2023-06-02] MEDS ORDERED: Sodium Chloride 0.9% 1,000 ML IV ONE (23:41)
[2023-06-02 23:55] LABS: BASOPHILS PERCENT AUTO 0.1 % (0.0-1.5); EOSINOPHILS ABSOLUTE AUTO 0.1 K/uL (0.0-0.7); EOSINOPHILS PERCENT AUTO 1.9 % (0.0-7.0); HEMATOCRIT 34.7 % (36.0-46.0); HEMOGLOBIN 11.5 g/dL (12.0-16.0); LYMPHOCYTES ABSOLUTE AUTO 1.2 K/uL (0.6-2.4); LYMPHOCYTES PERCENT AUTO 18.2 % (16.0-40.0); MEAN CORPUSCULAR HEMOGLOBIN 28.6 pg (27.0-32.0); MEAN CORPUSCULAR HGB CONC 33.1 g/dL (31.0-37.0); MEAN CORPUSCULAR VOLUME 86.3 fL (80.0-98.0); MONOCYTES ABSOLUTE AUTO 0.9 K/uL (0.0-0.8); MONOCYTES PERCENT AUTO 12.9 % (0.0-15.0); NEUTROPHILS ABSOLUTE AUTO 4.6 K/uL (1.4-5.7); NEUTROPHILS PERCENT AUTO 66.9 % (48.0-80.0); NRBC ABSOLUTE 0 K/uL; PLATELET COUNT,PLT 249 K/uL (150-400); RED BLOOD CELL COUNT 4.02 M/uL (4.30-5.90); WHITE BLOOD CELL COUNT,WBC 6.83 K/uL (4.0-11.0)
[2023-06-03] MEDS ORDERED: Sodium Chloride 0.9% 500 ML IV ONE (00:06)
[2023-06-03] MEDS ORDERED: Diltiazem IR 60 MG Tab PO ONE (00:07)
[2023-06-03 00:16] LABS: INR 1.07 (0.86-1.11)
[2023-06-03 00:25] LABS: LACTIC ACID 0.8 mmol/L (0.4-2.0)
[2023-06-03 00:31] LABS: BILIRUBIN TOTAL 0.3 mg/dL (0.2-1.0); CALCIUM 8.7 mg/dL (8.5-10.1); CARBON DIOXIDE,CO2 26.1 mmol/L (21.0-32.0); CREATININE 0.8 mg/dL (0.6-1.0); EST CRCL DRUG DOSING (CG) 37.55 mL/min; MAGNESIUM 1.8 mg/dL (1.8-2.4); POTASSIUM,K 3.7 mmol/L (3.5-5.1); PROTEIN TOTAL,TP 5.9 g/dL (6.4-8.2)
[2023-06-03] MEDS ORDERED: Digoxin 500 MCG/2 ML Amp IVPUSH ONE (01:19)
[2023-06-03] MEDS ORDERED: Iopamidol 755 MG/ML 500 ML Multipack Bottle IVPUSH ONE (01:38)
[2023-06-03] MEDS ORDERED: Furosemide 20 MG/2 ML VIAL IVPUSH ONE (02:15)
[2023-06-03 02:38] LABS: APPEARANCE,URINE CLEAR; BILIRUBIN,URINE NEGATIVE (NEGATIVE); COLOR,URINE YELLOW; GLUCOSE,URINE NEGATIVE (NEGATIVE); KETONES,URINE NEGATIVE (NEGATIVE); LEUKOCYTE ESTERASE,URINE NEGATIVE (NEGATIVE); NITRITE,URINE NEGATIVE (NEGATIVE); OCCULT BLOOD,URINE TRACE-INTACT (NEGATIVE); PH,URINE 6.5 (5.0-8.0); PROTEIN,URINE NEGATIVE (NEGATIVE); UROBILINOGEN,URINE 0.2 EU/dL (<2.0)
[2023-06-03 02:55] LABS: BACTERIA,URINE RARE (NEGATIVE); EPITHELIAL CELLS,URINE OCCASIONAL (NONE-FEW); RBC,URINE 0-2 (0-2/HPF); WBC,URINE 0-1 (0-5/HPF)
[2023-06-03] MEDS ORDERED: Ondansetron 4 MG/2 ML SDV IVPUSH PRN (08:21)
[2023-06-03] MEDS ORDERED: Acetaminophen 325 MG Tab PO PRN (08:21)
[2023-06-03] MEDS ORDERED: Sodium Chloride 0.9% 2.5 ML Syringe FLUSH PRN (08:21)
[2023-06-03] MEDS ORDERED: Sodium Chloride 0.9% 10 ML Syringe FLUSH PRN (08:21)
[2023-06-03 08:50] LABS: BASOPHILS PERCENT AUTO 0.2 % (0.0-1.5); EOSINOPHILS ABSOLUTE AUTO 0.1 K/uL (0.0-0.7); EOSINOPHILS PERCENT AUTO 1.6 % (0.0-7.0); HEMATOCRIT 38.1 % (36.0-46.0); HEMOGLOBIN 12.7 g/dL (12.0-16.0); LYMPHOCYTES ABSOLUTE AUTO 1.1 K/uL (0.6-2.4); LYMPHOCYTES PERCENT AUTO 18.3 % (16.0-40.0); MEAN CORPUSCULAR HEMOGLOBIN 28.7 pg (27.0-32.0); MEAN CORPUSCULAR HGB CONC 33.3 g/dL (31.0-37.0); MEAN CORPUSCULAR VOLUME 86.2 fL (80.0-98.0); MONOCYTES ABSOLUTE AUTO 0.7 K/uL (0.0-0.8); MONOCYTES PERCENT AUTO 12.2 % (0.0-15.0); NEUTROPHILS ABSOLUTE AUTO 4.1 K/uL (1.4-5.7); NEUTROPHILS PERCENT AUTO 67.7 % (48.0-80.0); NRBC ABSOLUTE 0 K/uL; PLATELET COUNT,PLT 253 K/uL (150-400); RED BLOOD CELL COUNT 4.42 M/uL (4.30-5.90); WHITE BLOOD CELL COUNT,WBC 6.07 K/uL (4.0-11.0)
[2023-06-03] MEDS: Metoprolol Tartrate 25 MG Tab PO SCH ×2 (08:53→20:48)
[2023-06-03 09:07] LABS: CALCIUM 8.7 mg/dL (8.5-10.1); CARBON DIOXIDE,CO2 27.3 mmol/L (21.0-32.0); CREATININE 0.6 mg/dL (0.6-1.0); EST CRCL DRUG DOSING (CG) 50.85 mL/min; MAGNESIUM 1.7 mg/dL (1.8-2.4); POTASSIUM,K 3.4 mmol/L (3.5-5.1)
[2023-06-03] MEDS ORDERED: Magnesium Sulfate/Water 2 GM in Premix Bag 1 BAG IV ONE (11:27)
[2023-06-04 06:42] LABS: BASOPHILS PERCENT AUTO 0.2 % (0.0-1.5); EOSINOPHILS ABSOLUTE AUTO 0.2 K/uL (0.0-0.7); EOSINOPHILS PERCENT AUTO 3.3 % (0.0-7.0); HEMATOCRIT 37.1 % (36.0-46.0); HEMOGLOBIN 12.2 g/dL (12.0-16.0); LYMPHOCYTES ABSOLUTE AUTO 1.3 K/uL (0.6-2.4); LYMPHOCYTES PERCENT AUTO 21.9 % (16.0-40.0); MEAN CORPUSCULAR HEMOGLOBIN 28.8 pg (27.0-32.0); MEAN CORPUSCULAR HGB CONC 32.9 g/dL (31.0-37.0); MEAN CORPUSCULAR VOLUME 87.5 fL (80.0-98.0); MONOCYTES ABSOLUTE AUTO 0.7 K/uL (0.0-0.8); MONOCYTES PERCENT AUTO 12.2 % (0.0-15.0); NEUTROPHILS ABSOLUTE AUTO 3.6 K/uL (1.4-5.7); NEUTROPHILS PERCENT AUTO 62.4 % (48.0-80.0); NRBC ABSOLUTE 0 K/uL; PLATELET COUNT,PLT 259 K/uL (150-400); RED BLOOD CELL COUNT 4.24 M/uL (4.30-5.90); WHITE BLOOD CELL COUNT,WBC 5.81 K/uL (4.0-11.0)
[2023-06-04 07:26] LABS: CALCIUM 8.3 mg/dL (8.5-10.1); CARBON DIOXIDE,CO2 28.6 mmol/L (21.0-32.0); CREATININE 0.7 mg/dL (0.6-1.0); EST CRCL DRUG DOSING (CG) 43.59 mL/min; POTASSIUM,K 4.1 mmol/L (3.5-5.1)
[2023-06-04] MEDS: Metoprolol Tartrate 25 MG Tab PO SCH ×2 (08:07→20:28)
[2023-06-05 05:52] LABS: BASOPHILS PERCENT AUTO 0.3 % (0.0-1.5); EOSINOPHILS ABSOLUTE AUTO 0.2 K/uL (0.0-0.7); EOSINOPHILS PERCENT AUTO 2.9 % (0.0-7.0); HEMATOCRIT 38.4 % (36.0-46.0); HEMOGLOBIN 12.5 g/dL (12.0-16.0); LYMPHOCYTES ABSOLUTE AUTO 1.1 K/uL (0.6-2.4); LYMPHOCYTES PERCENT AUTO 17.9 % (16.0-40.0); MEAN CORPUSCULAR HEMOGLOBIN 28.3 pg (27.0-32.0); MEAN CORPUSCULAR HGB CONC 32.6 g/dL (31.0-37.0); MEAN CORPUSCULAR VOLUME 86.9 fL (80.0-98.0); MONOCYTES ABSOLUTE AUTO 0.7 K/uL (0.0-0.8); MONOCYTES PERCENT AUTO 12.4 % (0.0-15.0); NEUTROPHILS ABSOLUTE AUTO 3.9 K/uL (1.4-5.7); NEUTROPHILS PERCENT AUTO 66.5 % (48.0-80.0); NRBC ABSOLUTE 0 K/uL; PLATELET COUNT,PLT 271 K/uL (150-400); RED BLOOD CELL COUNT 4.42 M/uL (4.30-5.90); WHITE BLOOD CELL COUNT,WBC 5.88 K/uL (4.0-11.0)
[2023-06-05 06:15] LABS: CALCIUM 8.3 mg/dL (8.5-10.1); CARBON DIOXIDE,CO2 27.2 mmol/L (21.0-32.0); CREATININE 0.7 mg/dL (0.6-1.0); EST CRCL DRUG DOSING (CG) 43.59 mL/min; MAGNESIUM 1.8 mg/dL (1.8-2.4); POTASSIUM,K 3.7 mmol/L (3.5-5.1)
[2023-06-05] MEDS: Metoprolol Tartrate 25 MG Tab PO SCH (08:57)
[2023-06-05 09:01] VITALS: BP 165/75; PULSE 97
== END 2023-06-05 13:30 | disposition home or self-care (01) ==
LOC: MW.ED 23:38 → MW.MS 06-03 03:21
PROVIDERS: ADMIT Internal Medicine; ATTEND Internal Medicine
DX: I48.91 Unspecified atrial fibrillation (principal); I50.20 Unspecified systolic (congestive) heart failure; I25.10 Atherosclerotic heart disease of native coronary artery without angina pectoris; J45.909 Unspecified asthma, uncomplicated; M19.90 Unspecified osteoarthritis, unspecified site; D64.9 Anemia, unspecified; E11.9 Type 2 diabetes mellitus without complications; R00.0 Tachycardia, unspecified; Z91.199 Patient's noncompliance with other medical treatment and regimen due to unspecified reason; Z95.810 Presence of automatic (implantable) cardiac defibrillator; Z88.5 Allergy status to narcotic agent; Z88.2 Allergy status to sulfonamides; Z79.82 Long term (current) use of aspirin; Z79.899 Other long term (current) drug therapy; Z95.0 Presence of cardiac pacemaker
CPT/HCPCS: 36415; 71045; 71275; 80048; 80053; 81001; 83605; 83735; 83880; 84484; 85025; 85379; 85610; 85730; 93005; 96361; 96365; 96366; 96375; 97161; 99285; A9270; G0378; J1160; J1940; J3475; J7030; Q9967; U0002; 93010; 96374

== ENCOUNTER 2023-08-25 12:00 | Emergency (ER) | payer MEDICARE, OTHER ==
[2023-08-25 12:13] LABS: BASOPHILS ABSOLUTE AUTO 0.03 K/uL (0.00-0.20); BASOPHILS PERCENT AUTO 0.2 % (0.0-1.0); EOSINOPHILS ABSOLUTE AUTO 0.16 K/uL (0.00-0.45); EOSINOPHILS PERCENT AUTO 1.3 % (0.0-6.0); HEMATOCRIT 39.4 % (37.0-47.0); HEMOGLOBIN 13.2 g/dL (12.0-16.0); IMMATURE GRAN ABSOLUTE AUTO 0.04 K/uL (0.00-0.05); IMMATURE GRAN PERCENT AUTO 0.3 % (0.0-0.4); LYMPHOCYTES ABSOLUTE AUTO 2.12 K/uL (1.00-4.80); LYMPHOCYTES PERCENT AUTO 17.4 % (24.0-44.0); MEAN CORPUSCULAR HEMOGLOBIN 28.9 pg (28.0-32.0); MEAN CORPUSCULAR HGB CONC 33.5 g/dL (32.0-36.0); MEAN CORPUSCULAR VOLUME 86.4 fL (83.0-99.0); MEAN PLATELET VOLUME 9.5 fL (9.4-12.3); MONOCYTES ABSOLUTE AUTO 1.09 K/uL (0.00-0.80); NEUTROPHILS ABSOLUTE AUTO 8.71 K/uL (1.80-7.70); NEUTROPHILS PERCENT AUTO 71.8 % (41.0-71.0); PLATELET COUNT,PLT 259 K/uL (150-400); RED BLOOD CELL COUNT 4.56 M/uL (4.10-5.30); WHITE BLOOD CELL COUNT,WBC 12.15 K/uL (3.9-11.3)
[2023-08-25 12:15] LABS: BASE EXCESS VENOUS -0.7 (-2.0-3.0); BICARBONATE,VENOUS 27 mEq/L (23-28); PCO2 VENOUS 55 mmHG (41-51); PH,VENOUS 7.29 (7.31-7.41); PO2 VENOUS < 30 mmHG
[2023-08-25] MEDS ORDERED: cefTRIAXone 2 GM in Sodium Chloride 0.9% 50 ML IV ONE (12:19)
[2023-08-25 12:23] LABS: INR 1.12 (0.86-1.11); PTT,PARTIAL THROMBOPLSTIN TIME 25.6 SEC (23.9-30.7)
[2023-08-25 12:28] LABS: A/G RATIO 1.5 (0.9-1.6); ALBUMIN 3.5 g/dL (3.4-5.0); BILIRUBIN TOTAL 0.6 mg/dL (0.2-1.0); CARBON DIOXIDE,CO2 24.9 mmol/L (21.0-32.0); EST CRCL DRUG DOSING (CG) 30.15 mL/min; POTASSIUM,K 4.8 mmol/L (3.5-5.1); PROTEIN TOTAL,TP 5.9 g/dL (6.4-8.2)
[2023-08-25 12:39] LABS: TSH ULTRASENSITIVE 10.62 uIU/mL (0.36-3.74)
[2023-08-25 13:43] LABS: LACTIC ACID 3.2 mmol/L (0.4-2.0)
[2023-08-25] MEDS ORDERED: Heparin Sodium/0.45% NaCl 500 ML IV SCH (19:30)
[2023-08-25] MEDS ORDERED: Acetaminophen 325 MG Tab PO ONE (21:00)
[2023-08-26 00:42] VITALS: BP 121/67; PULSE 75
== END 2023-08-26 01:36 ==
LOC: MW.ED 12:00 → MW.MS 14:28 → UNDOADMOB 14:28
DX: I21.4 Non-ST elevation (NSTEMI) myocardial infarction (principal); S93.05XA Dislocation of left ankle joint, initial encounter; I11.0 Hypertensive heart disease with heart failure; I50.23 Acute on chronic systolic (congestive) heart failure; I48.91 Unspecified atrial fibrillation; I48.92 Unspecified atrial flutter; E87.20 Acidosis, unspecified; I25.2 Old myocardial infarction; J45.909 Unspecified asthma, uncomplicated; M06.9 Rheumatoid arthritis, unspecified; Z88.8 Allergy status to other drugs, medicaments and biological substances; Z88.5 Allergy status to narcotic agent; Z88.2 Allergy status to sulfonamides; Z79.82 Long term (current) use of aspirin; Z79.899 Other long term (current) drug therapy
CPT/HCPCS: 27840; 36415; 71045; 80053; 80162; 82550; 82803; 83605; 83690; 84439; 84443; 84484; 85025; 85610; 85730; 87040; 93005; 96365; 96366; 96367; 99291; A9270; J0696; J1644; J3490; 93010

== ENCOUNTER 2023-09-05 19:33 | Emergency (ER) | payer MEDICARE, OTHER ==
[2023-09-05] MEDS ORDERED: Sodium Chloride 0.9% 10 ML Syringe FLUSH PRN (20:15)
[2023-09-05] MEDS ORDERED: Sodium Chloride 0.9% 2.5 ML Syringe FLUSH PRN (20:15)
[2023-09-05 20:43] LABS: BASOPHILS ABSOLUTE AUTO 0.01 K/uL (0.00-0.20); BASOPHILS PERCENT AUTO 0.1 % (0.0-1.0); EOSINOPHILS ABSOLUTE AUTO 0.03 K/uL (0.00-0.45); EOSINOPHILS PERCENT AUTO 0.3 % (0.0-6.0); HEMATOCRIT 28.7 % (37.0-47.0); HEMOGLOBIN 9.8 g/dL (12.0-16.0); IMMATURE GRAN ABSOLUTE AUTO 0.03 K/uL (0.00-0.05); IMMATURE GRAN PERCENT AUTO 0.3 % (0.0-0.4); LYMPHOCYTES ABSOLUTE AUTO 0.88 K/uL (1.00-4.80); MEAN CORPUSCULAR HEMOGLOBIN 30.1 pg (28.0-32.0); MEAN CORPUSCULAR HGB CONC 34.1 g/dL (32.0-36.0); MEAN PLATELET VOLUME 8.9 fL (9.4-12.3); MONOCYTES ABSOLUTE AUTO 0.92 K/uL (0.00-0.80); MONOCYTES PERCENT AUTO 10.4 % (0.0-8.0); NEUTROPHILS ABSOLUTE AUTO 6.94 K/uL (1.80-7.70); NEUTROPHILS PERCENT AUTO 78.9 % (41.0-71.0); PLATELET COUNT,PLT 303 K/uL (150-400); RED BLOOD CELL COUNT 3.26 M/uL (4.10-5.30); WHITE BLOOD CELL COUNT,WBC 8.81 K/uL (3.9-11.3)
[2023-09-05 21:05] LABS: A/G RATIO 1.3 (0.9-1.6); ALBUMIN 3.2 g/dL (3.4-5.0); BILIRUBIN TOTAL 0.8 mg/dL (0.2-1.0); CALCIUM 8.6 mg/dL (8.5-10.1); CARBON DIOXIDE,CO2 25.8 mmol/L (21.0-32.0); CREATININE 1.3 mg/dL (0.6-1.0); EST CRCL DRUG DOSING (CG) 22.9 mL/min; POTASSIUM,K 3.4 mmol/L (3.5-5.1); PROTEIN TOTAL,TP 5.7 g/dL (6.4-8.2)
[2023-09-05 21:52] VITALS: PULSE 89
[2023-09-05 22:02] LABS: APPEARANCE,URINE CLEAR; BILIRUBIN,URINE NEGATIVE (NEGATIVE); COLOR,URINE YELLOW; GLUCOSE,URINE NEGATIVE (NEGATIVE); KETONES,URINE NEGATIVE (NEGATIVE); LEUKOCYTE ESTERASE,URINE NEGATIVE (NEGATIVE); NITRITE,URINE NEGATIVE (NEGATIVE); OCCULT BLOOD,URINE NEGATIVE (NEGATIVE); PROTEIN,URINE NEGATIVE (NEGATIVE); UROBILINOGEN,URINE 0.2 EU/dL (<2.0)
[2023-09-05] MEDS ORDERED: Sodium Chloride 0.9% 250 ML IV STA (22:17)
[2023-09-05] MEDS ORDERED: Iopamidol 755 MG/ML 500 ML Multipack Bottle IVPUSH ONE (22:32)
[2023-09-06 01:36] VITALS: BP 103/60
== END 2023-09-06 00:05 | disposition home or self-care (01) ==
LOC: MW.ED 19:33
DX: R30.0 Dysuria (principal); I10 Essential (primary) hypertension; I25.2 Old myocardial infarction; J45.909 Unspecified asthma, uncomplicated; M06.9 Rheumatoid arthritis, unspecified; Z88.8 Allergy status to other drugs, medicaments and biological substances; Z88.5 Allergy status to narcotic agent; Z88.2 Allergy status to sulfonamides; Z79.899 Other long term (current) drug therapy; Z79.82 Long term (current) use of aspirin
CPT/HCPCS: 36415; 74177; 80053; 81003; 83690; 85025; 96360; 99284; J3490; J7050; Q9967

== ENCOUNTER 2024-01-16 11:57 | Emergency (ER) | payer MEDICARE, OTHER ==
[2024-01-16] MEDS: Lidocaine 4% 1 each Patch TOP STA (12:24)
[2024-01-16] MEDS: Acetaminophen 500 MG Tab PO ONE (12:24)
[2024-01-16] MEDS: Sodium Chloride 0.9% 1,000 ML IV ONE (12:25)
[2024-01-16 12:27] LABS: BASOPHILS ABSOLUTE AUTO 0.02 K/uL (0.00-0.20); BASOPHILS PERCENT AUTO 0.3 % (0.0-1.0); EOSINOPHILS ABSOLUTE AUTO 0.01 K/uL (0.00-0.45); EOSINOPHILS PERCENT AUTO 0.1 % (0.0-6.0); HEMATOCRIT 36.4 % (37.0-47.0); HEMOGLOBIN 12.1 g/dL (12.0-16.0); IMMATURE GRAN ABSOLUTE AUTO 0.02 K/uL (0.00-0.05); IMMATURE GRAN PERCENT AUTO 0.3 % (0.0-0.4); LYMPHOCYTES ABSOLUTE AUTO 0.87 K/uL (1.00-4.80); LYMPHOCYTES PERCENT AUTO 11.2 % (24.0-44.0); MEAN CORPUSCULAR HEMOGLOBIN 29.2 pg (28.0-32.0); MEAN CORPUSCULAR HGB CONC 33.2 g/dL (32.0-36.0); MEAN CORPUSCULAR VOLUME 87.7 fL (83.0-99.0); MEAN PLATELET VOLUME 8.9 fL (9.4-12.3); MONOCYTES ABSOLUTE AUTO 0.44 K/uL (0.00-0.80); MONOCYTES PERCENT AUTO 5.7 % (0.0-8.0); NEUTROPHILS ABSOLUTE AUTO 6.38 K/uL (1.80-7.70); NEUTROPHILS PERCENT AUTO 82.4 % (41.0-71.0); PLATELET COUNT,PLT 261 K/uL (150-400); RED BLOOD CELL COUNT 4.15 M/uL (4.10-5.30); WHITE BLOOD CELL COUNT,WBC 7.74 K/uL (3.9-11.3)
[2024-01-16 12:39] LABS: INR 1.08 (0.86-1.11); PTT,PARTIAL THROMBOPLSTIN TIME 24.4 SEC (23.9-30.7)
[2024-01-16 12:55] LABS: A/G RATIO 1.1 (0.9-1.6); ALBUMIN 3.5 g/dL (3.4-5.0); BILIRUBIN TOTAL 0.7 mg/dL (0.2-1.0); CALCIUM 8.9 mg/dL (8.5-10.1); CARBON DIOXIDE,CO2 29.6 mmol/L (21.0-32.0); CREATININE 0.9 mg/dL (0.6-1.0); EST CRCL DRUG DOSING (CG) 33.22 mL/min; POTASSIUM,K 3.9 mmol/L (3.5-5.1); PROTEIN TOTAL,TP 6.6 g/dL (6.4-8.2)
[2024-01-16] MEDS: Acetaminophen 500 MG Tab ONE (12:58)
[2024-01-16 14:58] VITALS: BP 134/52; PULSE 61
== END 2024-01-16 14:58 | disposition home or self-care (01) ==
LOC: MW.ED 11:57
DX: M54.6 Pain in thoracic spine (principal); I11.0 Hypertensive heart disease with heart failure; I50.9 Heart failure, unspecified; I25.2 Old myocardial infarction; J45.909 Unspecified asthma, uncomplicated; Z95.1 Presence of aortocoronary bypass graft; Z79.82 Long term (current) use of aspirin; Z79.899 Other long term (current) drug therapy; Z88.8 Allergy status to other drugs, medicaments and biological substances; Z88.2 Allergy status to sulfonamides; Z88.5 Allergy status to narcotic agent
CPT/HCPCS: 36415; 71045; 72072; 80053; 84484; 85025; 85610; 85730; 93005; 96360; 99284; A9270; J7030; 93010; 99283

== ENCOUNTER 2024-03-29 23:07 | Emergency (ER) | payer MEDICARE, OTHER ==
[2024-03-29 23:26] LABS: BASOPHILS ABSOLUTE AUTO 0.01 K/uL (0.00-0.20); BASOPHILS PERCENT AUTO 0.1 % (0.0-1.0); EOSINOPHILS ABSOLUTE AUTO 0.08 K/uL (0.00-0.45); EOSINOPHILS PERCENT AUTO 1.2 % (0.0-6.0); HEMATOCRIT 33.3 % (37.0-47.0); HEMOGLOBIN 11.5 g/dL (12.0-16.0); IMMATURE GRAN ABSOLUTE AUTO 0.03 K/uL (0.00-0.05); IMMATURE GRAN PERCENT AUTO 0.4 % (0.0-0.4); LYMPHOCYTES ABSOLUTE AUTO 1.45 K/uL (1.00-4.80); MEAN CORPUSCULAR HEMOGLOBIN 29.9 pg (28.0-32.0); MEAN CORPUSCULAR HGB CONC 34.5 g/dL (32.0-36.0); MEAN CORPUSCULAR VOLUME 86.5 fL (83.0-99.0); MEAN PLATELET VOLUME 9.2 fL (9.4-12.3); MONOCYTES ABSOLUTE AUTO 0.76 K/uL (0.00-0.80); NEUTROPHILS ABSOLUTE AUTO 4.59 K/uL (1.80-7.70); NEUTROPHILS PERCENT AUTO 66.3 % (41.0-71.0); PLATELET COUNT,PLT 242 K/uL (150-400); RED BLOOD CELL COUNT 3.85 M/uL (4.10-5.30); WHITE BLOOD CELL COUNT,WBC 6.92 K/uL (3.9-11.3)
[2024-03-30 00:05] LABS: ALBUMIN 3.1 g/dL (3.4-5.0); BILIRUBIN TOTAL 0.5 mg/dL (0.2-1.0); CALCIUM 8.2 mg/dL (8.5-10.1); EST CRCL DRUG DOSING (CG) 32.07 mL/min; POTASSIUM,K 3.6 mmol/L (3.5-5.1); PROTEIN TOTAL,TP 5.8 g/dL (6.4-8.2)
[2024-03-30 00:06] LABS: A/G RATIO 1.2 (0.9-1.6)
[2024-03-30] MEDS: Acetaminophen 325 MG Tab PO ONE ×3 (00:14→05:41)
[2024-03-30] MEDS: Lidocaine 4% 1 each Patch TOP PRN ×2 (00:14→02:14)
[2024-03-30] MEDS: Sodium Chloride 0.9% 2.5 ML Syringe FLUSH PRN (00:15)
[2024-03-30] MEDS: Sodium Chloride 0.9% 10 ML Syringe FLUSH PRN (00:15)
[2024-03-30 01:17] VITALS: PULSE 88
[2024-03-30] MEDS: Iopamidol 755 MG/ML 500 ML Multipack Bottle IVPUSH STA (01:36)
[2024-03-30] MEDS: Heparin Sodium 5,000 Units/ML Vial IVPUSH ONE (03:15)
[2024-03-30] MEDS: Heparin Sodium/0.45% NaCl 500 ML IV SCH (03:16)
[2024-03-30] MEDS: Heparin Sodium/0.45% NaCl 500 ML ONE (03:18)
[2024-03-30 03:27] VITALS: BP 135/66
== END 2024-03-30 05:41 ==
LOC: MW.ED 23:07
DX: I21.4 Non-ST elevation (NSTEMI) myocardial infarction (principal); M54.9 Dorsalgia, unspecified; J45.909 Unspecified asthma, uncomplicated; I11.0 Hypertensive heart disease with heart failure; I50.9 Heart failure, unspecified; E11.9 Type 2 diabetes mellitus without complications; Z75.8 Other problems related to medical facilities and other health care; Z86.73 Personal history of transient ischemic attack (TIA), and cerebral infarction without residual deficits; Z88.8 Allergy status to other drugs, medicaments and biological substances; Z88.6 Allergy status to analgesic agent; Z88.5 Allergy status to narcotic agent; Z79.82 Long term (current) use of aspirin; Z79.899 Other long term (current) drug therapy; Z88.2 Allergy status to sulfonamides; Z95.810 Presence of automatic (implantable) cardiac defibrillator
CPT/HCPCS: 36415; 71045; 71275; 80053; 84484; 85025; 85379; 85730; 93005; 96365; 96366; 99285; A9270; J1644; J3490; Q9967; 93010

== ENCOUNTER 2024-06-11 10:06 | Emergency (ER) | payer MEDICARE, OTHER ==
[2024-06-11] MEDS ORDERED: Sodium Chloride 0.9% 10 ML Syringe FLUSH PRN (10:49)
[2024-06-11] MEDS ORDERED: Sodium Chloride 0.9% 2.5 ML Syringe FLUSH PRN (10:49)
[2024-06-11 11:29] LABS: BASOPHILS ABSOLUTE AUTO 0.02 K/uL (0.00-0.20); BASOPHILS PERCENT AUTO 0.2 % (0.0-1.0); EOSINOPHILS ABSOLUTE AUTO 0.06 K/uL (0.00-0.45); EOSINOPHILS PERCENT AUTO 0.7 % (0.0-6.0); HEMATOCRIT 38.8 % (37.0-47.0); HEMOGLOBIN 12.5 g/dL (12.0-16.0); IMMATURE GRAN ABSOLUTE AUTO 0.04 K/uL (0.00-0.05); IMMATURE GRAN PERCENT AUTO 0.5 % (0.0-0.4); LYMPHOCYTES ABSOLUTE AUTO 0.96 K/uL (1.00-4.80); LYMPHOCYTES PERCENT AUTO 11.2 % (24.0-44.0); MEAN CORPUSCULAR HEMOGLOBIN 30.4 pg (28.0-32.0); MEAN CORPUSCULAR HGB CONC 32.2 g/dL (32.0-36.0); MEAN CORPUSCULAR VOLUME 94.4 fL (83.0-99.0); MEAN PLATELET VOLUME 9.6 fL (9.4-12.3); MONOCYTES ABSOLUTE AUTO 0.61 K/uL (0.00-0.80); MONOCYTES PERCENT AUTO 7.1 % (0.0-8.0); NEUTROPHILS ABSOLUTE AUTO 6.91 K/uL (1.80-7.70); NEUTROPHILS PERCENT AUTO 80.3 % (41.0-71.0); PLATELET COUNT,PLT 205 K/uL (150-400); RED BLOOD CELL COUNT 4.11 M/uL (4.10-5.30)
[2024-06-11 11:49] LABS: CORONAVIRUS COVID-19 NAA NEGATIVE (NEGATIVE); INFLUENZA A NAA NEGATIVE (NEGATIVE); INFLUENZA B NAA NEGATIVE (NEGATIVE)
[2024-06-11 11:50] LABS: A/G RATIO 1.1 (0.9-1.6); ALBUMIN 3.3 g/dL (3.4-5.0); BILIRUBIN TOTAL 0.9 mg/dL (0.2-1.0); CALCIUM 9.4 mg/dL (8.5-10.1); CARBON DIOXIDE,CO2 30.8 mmol/L (21.0-32.0); EST CRCL DRUG DOSING (CG) 30.28 mL/min; POTASSIUM,K 3.7 mmol/L (3.5-5.1); PROTEIN TOTAL,TP 6.2 g/dL (6.4-8.2)
[2024-06-11 12:30] LABS: APPEARANCE,URINE CLEAR; BILIRUBIN,URINE NEGATIVE (NEGATIVE); COLOR,URINE YELLOW; GLUCOSE,URINE NEGATIVE (NEGATIVE); KETONES,URINE NEGATIVE (NEGATIVE); LEUKOCYTE ESTERASE,URINE NEGATIVE (NEGATIVE); NITRITE,URINE NEGATIVE (NEGATIVE); OCCULT BLOOD,URINE TRACE-INTACT (NEGATIVE); PH,URINE 7.5 (5.0-8.0); PROTEIN,URINE NEGATIVE (NEGATIVE); UROBILINOGEN,URINE 0.2 EU/dL (<2.0)
[2024-06-11 12:47] LABS: BACTERIA,URINE FEW (NEGATIVE); EPITHELIAL CELLS,URINE OCCASIONAL (NONE-FEW); RBC,URINE 0-2 (0-2/HPF); WBC,URINE 0-2 (0-5/HPF)
[2024-06-11 13:55] VITALS: BP 135/70; PULSE 76
== END 2024-06-11 13:52 | disposition home or self-care (01) ==
LOC: MW.ED 10:06
DX: I11.0 Hypertensive heart disease with heart failure (principal); I50.9 Heart failure, unspecified; I25.2 Old myocardial infarction; Z90.49 Acquired absence of other specified parts of digestive tract; Z79.82 Long term (current) use of aspirin; Z79.899 Other long term (current) drug therapy; Z88.5 Allergy status to narcotic agent; Z88.2 Allergy status to sulfonamides; Z88.8 Allergy status to other drugs, medicaments and biological substances; Z75.8 Other problems related to medical facilities and other health care; Z95.5 Presence of coronary angioplasty implant and graft
CPT/HCPCS: 0240U; 36415; 71045; 80053; 81001; 83880; 84484; 85025; 93005; 99285; 93010; 99284

== ENCOUNTER 2024-08-17 10:03 | Observation (INO) | payer MEDICARE, OTHER ==
[2024-08-17] MEDS ORDERED: Sodium Chloride 0.9% 2.5 ML Syringe FLUSH PRN (10:16)
[2024-08-17 10:39] LABS: BASOPHILS ABSOLUTE AUTO 0.02 K/uL (0.00-0.20); BASOPHILS PERCENT AUTO 0.2 % (0.0-1.0); EOSINOPHILS PERCENT AUTO 1.2 % (0.0-6.0); HEMATOCRIT 37.3 % (37.0-47.0); HEMOGLOBIN 12.5 g/dL (12.0-16.0); IMMATURE GRAN ABSOLUTE AUTO 0.02 K/uL (0.00-0.05); IMMATURE GRAN PERCENT AUTO 0.2 % (0.0-0.4); LYMPHOCYTES ABSOLUTE AUTO 1.16 K/uL (1.00-4.80); LYMPHOCYTES PERCENT AUTO 14.3 % (24.0-44.0); MEAN CORPUSCULAR HEMOGLOBIN 30.9 pg (28.0-32.0); MEAN CORPUSCULAR HGB CONC 33.5 g/dL (32.0-36.0); MEAN CORPUSCULAR VOLUME 92.1 fL (83.0-99.0); MEAN PLATELET VOLUME 9.5 fL (9.4-12.3); MONOCYTES ABSOLUTE AUTO 0.74 K/uL (0.00-0.80); MONOCYTES PERCENT AUTO 9.1 % (0.0-8.0); PLATELET COUNT,PLT 219 K/uL (150-400); RED BLOOD CELL COUNT 4.05 M/uL (4.10-5.30); WHITE BLOOD CELL COUNT,WBC 8.14 K/uL (3.9-11.3)
[2024-08-17 11:06] LABS: INR 1.16 (0.86-1.11)
[2024-08-17 11:11] LABS: A/G RATIO 1.2 (0.9-1.6); ALBUMIN 3.4 g/dL (3.4-5.0); BILIRUBIN TOTAL 0.9 mg/dL (0.2-1.0); CALCIUM 8.7 mg/dL (8.5-10.1); CARBON DIOXIDE,CO2 31.7 mmol/L (21.0-32.0); EST CRCL DRUG DOSING (CG) 30.35 mL/min; POTASSIUM,K 3.2 mmol/L (3.5-5.1); PROTEIN TOTAL,TP 6.2 g/dL (6.4-8.2)
[2024-08-17] MEDS: Sodium Chloride 0.9% 10 ML Syringe FLUSH PRN (14:21)
[2024-08-17] MEDS: Furosemide 40 MG/4 ML VIAL IVPUSH ONE ×2 (14:21→18:58)
[2024-08-17] MEDS: Iopamidol 755 MG/ML 500 ML Multipack Bottle IVPUSH STA (15:01)
[2024-08-17] MEDS ORDERED: Ondansetron 4 MG Tab.DIS PO PRN (15:13)
[2024-08-17] MEDS ORDERED: Polyethylene Glycol 3350 Powder 17 GM Packet PO PRN (15:13)
[2024-08-17] MEDS ORDERED: Nitroglycerin 0.4 MG Tab.SL SL PRN (15:25)
[2024-08-17] MEDS: Potassium Chloride 20 MEQ Tab.ER PO ONE (19:06)
[2024-08-17 20:53] LABS: APPEARANCE,URINE CLEAR; BILIRUBIN,URINE NEGATIVE (NEGATIVE); COLOR,URINE YELLOW; GLUCOSE,URINE NEGATIVE (NEGATIVE); KETONES,URINE NEGATIVE (NEGATIVE); LEUKOCYTE ESTERASE,URINE NEGATIVE (NEGATIVE); NITRITE,URINE NEGATIVE (NEGATIVE); OCCULT BLOOD,URINE NEGATIVE (NEGATIVE); PH,URINE 7.5 (5.0-8.0); PROTEIN,URINE NEGATIVE (NEGATIVE); UROBILINOGEN,URINE 0.2 EU/dL (<2.0)
[2024-08-17] MEDS ORDERED: Losartan 25 MG Tab PO SCH (21:00)
[2024-08-17 21:09] LABS: AMORPHOUS SEDIMENT,URINE FEW (NEGATIVE); BACTERIA,URINE FEW (NEGATIVE); EPITHELIAL CELLS,URINE RARE (NONE-FEW); RBC,URINE 0-1 (0-2/HPF); WBC,URINE 0-1 (0-5/HPF)
[2024-08-17] MEDS: Metoprolol Tartrate 25 MG Tab PO SCH (21:14)
[2024-08-17] MEDS: Enoxaparin 40 MG/0.4 ML Syringe SUBCUT SCH (21:17)
[2024-08-18 03:09] LABS: CALCIUM 8.8 mg/dL (8.5-10.1); CARBON DIOXIDE,CO2 27.9 mmol/L (21.0-32.0); EST CRCL DRUG DOSING (CG) 32.54 mL/min; POTASSIUM,K 3.9 mmol/L (3.5-5.1)
[2024-08-18 06:41] LABS: BASOPHILS ABSOLUTE AUTO 0.02 K/uL (0.00-0.20); BASOPHILS PERCENT AUTO 0.2 % (0.0-1.0); EOSINOPHILS ABSOLUTE AUTO 0.16 K/uL (0.00-0.45); EOSINOPHILS PERCENT AUTO 1.9 % (0.0-6.0); HEMATOCRIT 39.5 % (37.0-47.0); HEMOGLOBIN 13.1 g/dL (12.0-16.0); IMMATURE GRAN ABSOLUTE AUTO 0.03 K/uL (0.00-0.05); IMMATURE GRAN PERCENT AUTO 0.4 % (0.0-0.4); LYMPHOCYTES ABSOLUTE AUTO 1.57 K/uL (1.00-4.80); LYMPHOCYTES PERCENT AUTO 19.1 % (24.0-44.0); MEAN CORPUSCULAR HEMOGLOBIN 30.6 pg (28.0-32.0); MEAN CORPUSCULAR HGB CONC 33.2 g/dL (32.0-36.0); MEAN CORPUSCULAR VOLUME 92.3 fL (83.0-99.0); MEAN PLATELET VOLUME 9.6 fL (9.4-12.3); MONOCYTES ABSOLUTE AUTO 0.84 K/uL (0.00-0.80); MONOCYTES PERCENT AUTO 10.2 % (0.0-8.0); NEUTROPHILS ABSOLUTE AUTO 5.62 K/uL (1.80-7.70); NEUTROPHILS PERCENT AUTO 68.2 % (41.0-71.0); PLATELET COUNT,PLT 245 K/uL (150-400); RED BLOOD CELL COUNT 4.28 M/uL (4.10-5.30); WHITE BLOOD CELL COUNT,WBC 8.24 K/uL (3.9-11.3)
[2024-08-18 07:13] LABS: A/G RATIO 1.2 (0.9-1.6); ALBUMIN 3.5 g/dL (3.4-5.0); CALCIUM 9.2 mg/dL (8.5-10.1); CARBON DIOXIDE,CO2 30.1 mmol/L (21.0-32.0); CREATININE 1.1 mg/dL (0.6-1.0); EST CRCL DRUG DOSING (CG) 29.58 mL/min; POTASSIUM,K 3.6 mmol/L (3.5-5.1); PROTEIN TOTAL,TP 6.4 g/dL (6.4-8.2)
[2024-08-18] MEDS: Furosemide 40 MG/4 ML VIAL IVPUSH SCH (08:29)
[2024-08-18] MEDS: Cholecalciferol (Vitamin D3) 25 MCG Tab PO SCH (11:52)
[2024-08-18] MEDS: Aspirin 81 MG Tab.EC PO SCH (11:52)
[2024-08-18] MEDS: Folic Acid 1 MG Tab PO SCH (11:52)
[2024-08-18] MEDS: Magnesium Oxide 400 MG Tab PO SCH (11:52)
[2024-08-18] MEDS: Metoprolol Tartrate 25 MG Tab PO SCH (11:59)
[2024-08-18] MEDS: Melatonin 3 MG Tab PO PRN (20:46)
[2024-08-19 07:17] LABS: BASOPHILS ABSOLUTE AUTO 0.03 K/uL (0.00-0.20); BASOPHILS PERCENT AUTO 0.4 % (0.0-1.0); EOSINOPHILS ABSOLUTE AUTO 0.21 K/uL (0.00-0.45); EOSINOPHILS PERCENT AUTO 2.5 % (0.0-6.0); HEMATOCRIT 41.1 % (37.0-47.0); HEMOGLOBIN 13.6 g/dL (12.0-16.0); IMMATURE GRAN ABSOLUTE AUTO 0.03 K/uL (0.00-0.05); IMMATURE GRAN PERCENT AUTO 0.4 % (0.0-0.4); LYMPHOCYTES ABSOLUTE AUTO 1.39 K/uL (1.00-4.80); LYMPHOCYTES PERCENT AUTO 16.3 % (24.0-44.0); MEAN CORPUSCULAR HEMOGLOBIN 30.4 pg (28.0-32.0); MEAN CORPUSCULAR HGB CONC 33.1 g/dL (32.0-36.0); MEAN CORPUSCULAR VOLUME 91.9 fL (83.0-99.0); MEAN PLATELET VOLUME 9.6 fL (9.4-12.3); MONOCYTES ABSOLUTE AUTO 1.07 K/uL (0.00-0.80); MONOCYTES PERCENT AUTO 12.5 % (0.0-8.0); NEUTROPHILS PERCENT AUTO 67.9 % (41.0-71.0); PLATELET COUNT,PLT 245 K/uL (150-400); RED BLOOD CELL COUNT 4.47 M/uL (4.10-5.30); WHITE BLOOD CELL COUNT,WBC 8.53 K/uL (3.9-11.3)
[2024-08-19 07:48] LABS: A/G RATIO 1.2 (0.9-1.6); ALBUMIN 3.6 g/dL (3.4-5.0); BILIRUBIN TOTAL 0.9 mg/dL (0.2-1.0); CALCIUM 9.7 mg/dL (8.5-10.1); CARBON DIOXIDE,CO2 30.3 mmol/L (21.0-32.0); EST CRCL DRUG DOSING (CG) 27.22 mL/min; POTASSIUM,K 3.7 mmol/L (3.5-5.1); PROTEIN TOTAL,TP 6.7 g/dL (6.4-8.2)
[2024-08-19 12:45] VITALS: BP 126/64; PULSE 74
[2024-08-20] MEDS ORDERED: FLU (Fluad Triv) TS24-25 (65UP)/MF59C/PF 45 MCG/0.5 ML Syringe IM ONE (16:15)
== END 2024-08-19 15:26 | disposition home or self-care (01) ==
LOC: MW.ED 10:03 → MW.MS 14:38
PROVIDERS: ADMIT Internal Medicine; ATTEND Internal Medicine
DX: I11.0 Hypertensive heart disease with heart failure (principal); I50.9 Heart failure, unspecified; I25.10 Atherosclerotic heart disease of native coronary artery without angina pectoris; Z95.5 Presence of coronary angioplasty implant and graft; Z79.82 Long term (current) use of aspirin; Z79.899 Other long term (current) drug therapy
CPT/HCPCS: 36415; 71045; 71275; 74174; 80048; 80053; 81001; 83605; 83690; 83735; 83880; 84484; 85025; 85610; 93005; 93306; 96374; 96376; 99285; A9270; G0378; J1940; J3490; Q9967

== ENCOUNTER 2024-08-27 08:36 | Observation (INO) | payer MEDICARE, OTHER ==
[2024-08-27] MEDS ORDERED: Sodium Chloride 0.9% 2.5 ML Syringe FLUSH PRN (08:44)
[2024-08-27] MEDS ORDERED: Sodium Chloride 0.9% 10 ML Syringe FLUSH PRN (08:44)
[2024-08-27 09:15] LABS: BASOPHILS ABSOLUTE AUTO 0.02 K/uL (0.00-0.20); BASOPHILS PERCENT AUTO 0.2 % (0.0-1.0); EOSINOPHILS PERCENT AUTO 0.9 % (0.0-6.0); HEMATOCRIT 38.9 % (37.0-47.0); HEMOGLOBIN 13.1 g/dL (12.0-16.0); IMMATURE GRAN ABSOLUTE AUTO 0.04 K/uL (0.00-0.05); IMMATURE GRAN PERCENT AUTO 0.4 % (0.0-0.4); LYMPHOCYTES PERCENT AUTO 13.2 % (24.0-44.0); MEAN CORPUSCULAR HEMOGLOBIN 30.5 pg (28.0-32.0); MEAN CORPUSCULAR HGB CONC 33.7 g/dL (32.0-36.0); MEAN CORPUSCULAR VOLUME 90.7 fL (83.0-99.0); MEAN PLATELET VOLUME 9.3 fL (9.4-12.3); MONOCYTES ABSOLUTE AUTO 1.18 K/uL (0.00-0.80); MONOCYTES PERCENT AUTO 11.2 % (0.0-8.0); NEUTROPHILS ABSOLUTE AUTO 7.84 K/uL (1.80-7.70); NEUTROPHILS PERCENT AUTO 74.1 % (41.0-71.0); PLATELET COUNT,PLT 256 K/uL (150-400); RED BLOOD CELL COUNT 4.29 M/uL (4.10-5.30); WHITE BLOOD CELL COUNT,WBC 10.58 K/uL (3.9-11.3)
[2024-08-27 09:50] LABS: A/G RATIO 1.2 (0.9-1.6); ALBUMIN 3.5 g/dL (3.4-5.0); BILIRUBIN TOTAL 1.1 mg/dL (0.2-1.0); CALCIUM 9.4 mg/dL (8.5-10.1); CARBON DIOXIDE,CO2 34.4 mmol/L (21.0-32.0); CREATININE 1.1 mg/dL (0.6-1.0); EST CRCL DRUG DOSING (CG) 25.03 mL/min; POTASSIUM,K 2.9 mmol/L (3.5-5.1); PROTEIN TOTAL,TP 6.4 g/dL (6.4-8.2); TSH ULTRASENSITIVE 3.73 uIU/mL (0.36-3.74)
[2024-08-27 09:52] LABS: CORONAVIRUS COVID-19 NAA NEGATIVE (NEGATIVE); INFLUENZA A NAA NEGATIVE (NEGATIVE); INFLUENZA B NAA NEGATIVE (NEGATIVE); RESPIRATORY SYNCYTIAL VIR NAA NEGATIVE (NEGATIVE)
[2024-08-27] MEDS: Sodium Chloride 0.9% 500 ML IV ONE (11:07)
[2024-08-27] MEDS: Potassium Chloride 10 MEQ in Premix Bag 1 BAG IV SCH (11:07)
[2024-08-27 11:22] LABS: APPEARANCE,URINE CLEAR; BILIRUBIN,URINE NEGATIVE (NEGATIVE); COLOR,URINE YELLOW; GLUCOSE,URINE NEGATIVE (NEGATIVE); KETONES,URINE NEGATIVE (NEGATIVE); LEUKOCYTE ESTERASE,URINE NEGATIVE (NEGATIVE); NITRITE,URINE NEGATIVE (NEGATIVE); OCCULT BLOOD,URINE NEGATIVE (NEGATIVE); PH,URINE 7.5 (5.0-8.0); PROTEIN,URINE NEGATIVE (NEGATIVE); UROBILINOGEN,URINE 0.2 EU/dL (<2.0)
[2024-08-27] MEDS ORDERED: Melatonin 3 MG Tab PO PRN (12:10)
[2024-08-27] MEDS ORDERED: Bisacodyl 5 MG Tab PO PRN (12:10)
[2024-08-27] MEDS ORDERED: Polyethylene Glycol 3350 Powder 17 GM Packet PO PRN (12:10)
[2024-08-27] MEDS ORDERED: Ondansetron 4 MG Tab.DIS PO PRN (12:10)
[2024-08-27] MEDS: Pantoprazole 40 MG Tab.CR PO SCH (13:56)
[2024-08-27] MEDS: Enoxaparin 30 MG/0.3 ML Syringe SUBCUT SCH (13:56)
[2024-08-27] MEDS: Aspirin 81 MG Tab.EC PO SCH (16:16)
[2024-08-27] MEDS: Magnesium Oxide 400 MG Tab PO SCH ×2 (16:16→20:34)
[2024-08-27] MEDS: Furosemide 40 MG/4 ML VIAL IVPUSH SCH (16:17)
[2024-08-27] MEDS: Potassium Chloride 10 MEQ Tab.ER PO SCH (20:34)
[2024-08-27] MEDS: LORazepam 0.5 MG Tab PO ONE (20:38)
[2024-08-27] MEDS: Metoprolol Tartrate 25 MG Tab PO SCH (20:39)
[2024-08-27] MEDS: Acetaminophen 325 MG Tab PO PRN (22:52)
[2024-08-28 06:41] LABS: BASOPHILS ABSOLUTE AUTO 0.03 K/uL (0.00-0.20); BASOPHILS PERCENT AUTO 0.3 % (0.0-1.0); EOSINOPHILS ABSOLUTE AUTO 0.16 K/uL (0.00-0.45); EOSINOPHILS PERCENT AUTO 1.7 % (0.0-6.0); HEMATOCRIT 37.4 % (37.0-47.0); HEMOGLOBIN 12.6 g/dL (12.0-16.0); IMMATURE GRAN ABSOLUTE AUTO 0.02 K/uL (0.00-0.05); IMMATURE GRAN PERCENT AUTO 0.2 % (0.0-0.4); LYMPHOCYTES PERCENT AUTO 18.4 % (24.0-44.0); MEAN CORPUSCULAR HEMOGLOBIN 30.3 pg (28.0-32.0); MEAN CORPUSCULAR HGB CONC 33.7 g/dL (32.0-36.0); MEAN CORPUSCULAR VOLUME 89.9 fL (83.0-99.0); MEAN PLATELET VOLUME 9.4 fL (9.4-12.3); MONOCYTES ABSOLUTE AUTO 0.96 K/uL (0.00-0.80); MONOCYTES PERCENT AUTO 10.4 % (0.0-8.0); NEUTROPHILS ABSOLUTE AUTO 6.35 K/uL (1.80-7.70); PLATELET COUNT,PLT 245 K/uL (150-400); RED BLOOD CELL COUNT 4.16 M/uL (4.10-5.30); WHITE BLOOD CELL COUNT,WBC 9.22 K/uL (3.9-11.3)
[2024-08-28 07:05] LABS: A/G RATIO 1.2 (0.9-1.6); ALBUMIN 3.3 g/dL (3.4-5.0); BILIRUBIN TOTAL 1.3 mg/dL (0.2-1.0); CALCIUM 9.1 mg/dL (8.5-10.1); CARBON DIOXIDE,CO2 27.7 mmol/L (21.0-32.0); EST CRCL DRUG DOSING (CG) 28.78 mL/min; POTASSIUM,K 3.5 mmol/L (3.5-5.1); PROTEIN TOTAL,TP 6.1 g/dL (6.4-8.2)
[2024-08-28] MEDS: hydrOXYzine HCl 25 MG Tab PO ONE (10:15)
[2024-08-28 12:46] VITALS: BP 121/68; PULSE 86
== END 2024-08-28 12:44 | disposition home health service (06) ==
LOC: MW.ED 08:36 → MW.MS 10:51
PROVIDERS: ADMIT Family Medicine; ATTEND Family Medicine
DX: I11.0 Hypertensive heart disease with heart failure (principal); I50.9 Heart failure, unspecified; R06.02 Shortness of breath; F41.9 Anxiety disorder, unspecified; I48.91 Unspecified atrial fibrillation; D64.9 Anemia, unspecified; Z79.82 Long term (current) use of aspirin; Z79.899 Other long term (current) drug therapy; Z88.0 Allergy status to penicillin; Z88.5 Allergy status to narcotic agent; Z88.2 Allergy status to sulfonamides; Z20.822 Contact with and (suspected) exposure to COVID-19
CPT/HCPCS: 0241U; 36415; 71045; 80053; 81003; 83690; 83735; 83880; 84443; 84484; 85025; 93005; 96365; 96366; 96375; 96376; 97161; 99285; A9270; G0378; J1940; J3480; J7040; 93010; J1650

== ENCOUNTER 2024-09-02 08:42 | Emergency (ER) | payer OTHER ==
[2024-09-02 09:40] LABS: BASOPHILS ABSOLUTE AUTO 0.02 K/uL (0.00-0.20); BASOPHILS PERCENT AUTO 0.2 % (0.0-1.0); EOSINOPHILS ABSOLUTE AUTO 0.07 K/uL (0.00-0.45); EOSINOPHILS PERCENT AUTO 0.8 % (0.0-6.0); HEMOGLOBIN 12.8 g/dL (12.0-16.0); IMMATURE GRAN ABSOLUTE AUTO 0.02 K/uL (0.00-0.05); IMMATURE GRAN PERCENT AUTO 0.2 % (0.0-0.4); LYMPHOCYTES ABSOLUTE AUTO 1.04 K/uL (1.00-4.80); LYMPHOCYTES PERCENT AUTO 12.4 % (24.0-44.0); MEAN CORPUSCULAR HEMOGLOBIN 30.2 pg (28.0-32.0); MEAN CORPUSCULAR HGB CONC 33.7 g/dL (32.0-36.0); MEAN CORPUSCULAR VOLUME 89.6 fL (83.0-99.0); MEAN PLATELET VOLUME 9.4 fL (9.4-12.3); MONOCYTES ABSOLUTE AUTO 0.83 K/uL (0.00-0.80); MONOCYTES PERCENT AUTO 9.9 % (0.0-8.0); NEUTROPHILS ABSOLUTE AUTO 6.43 K/uL (1.80-7.70); NEUTROPHILS PERCENT AUTO 76.5 % (41.0-71.0); PLATELET COUNT,PLT 238 K/uL (150-400); RED BLOOD CELL COUNT 4.24 M/uL (4.10-5.30); WHITE BLOOD CELL COUNT,WBC 8.41 K/uL (3.9-11.3)
[2024-09-02 10:09] LABS: A/G RATIO 1.2 (0.9-1.6); ALBUMIN 3.5 g/dL (3.4-5.0); BILIRUBIN TOTAL 1.2 mg/dL (0.2-1.0); CALCIUM 9.3 mg/dL (8.5-10.1); CARBON DIOXIDE,CO2 31.2 mmol/L (21.0-32.0); EST CRCL DRUG DOSING (CG) 29.09 mL/min; MAGNESIUM 1.8 mg/dL (1.8-2.4); POTASSIUM,K 2.7 mmol/L (3.5-5.1); PROTEIN TOTAL,TP 6.3 g/dL (6.4-8.2)
[2024-09-02] MEDS: Furosemide 40 MG/4 ML VIAL IVPUSH ONE (10:51)
[2024-09-02] MEDS: Potassium Chloride 20 MEQ Tab.ER PO ONE (10:53)
[2024-09-02] MEDS: LORazepam 2 MG/ML SDV IVPUSH ONE (10:54)
[2024-09-02] MEDS: Sodium Chloride 0.9% 2.5 ML Syringe FLUSH PRN (10:55)
[2024-09-02] MEDS: Sodium Chloride 0.9% 10 ML Syringe FLUSH PRN (10:55)
[2024-09-02 12:49] VITALS: BP 123/73; PULSE 94
== END 2024-09-02 12:49 | disposition home or self-care (01) ==
LOC: MW.ED 08:42
DX: F41.9 Anxiety disorder, unspecified (principal); J81.1 Chronic pulmonary edema; E87.6 Hypokalemia; Z75.8 Other problems related to medical facilities and other health care; I11.0 Hypertensive heart disease with heart failure; I50.9 Heart failure, unspecified; Z79.82 Long term (current) use of aspirin; Z79.899 Other long term (current) drug therapy; Z88.2 Allergy status to sulfonamides; Z88.8 Allergy status to other drugs, medicaments and biological substances; Z88.1 Allergy status to other antibiotic agents; Z88.5 Allergy status to narcotic agent
CPT/HCPCS: 36415; 71045; 80053; 83735; 83880; 84484; 85025; 85379; 93005; 96374; 99285; A9270; J2060; J3490

== ENCOUNTER 2024-09-04 11:45 | Emergency (ER) | payer MEDICARE, OTHER ==
[2024-09-04 12:36] LABS: BASOPHILS ABSOLUTE AUTO 0.02 K/uL (0.00-0.20); BASOPHILS PERCENT AUTO 0.2 % (0.0-1.0); EOSINOPHILS ABSOLUTE AUTO 0.08 K/uL (0.00-0.45); HEMATOCRIT 37.1 % (37.0-47.0); HEMOGLOBIN 12.5 g/dL (12.0-16.0); IMMATURE GRAN ABSOLUTE AUTO 0.01 K/uL (0.00-0.05); IMMATURE GRAN PERCENT AUTO 0.1 % (0.0-0.4); LYMPHOCYTES ABSOLUTE AUTO 1.18 K/uL (1.00-4.80); LYMPHOCYTES PERCENT AUTO 14.3 % (24.0-44.0); MEAN CORPUSCULAR HEMOGLOBIN 30.5 pg (28.0-32.0); MEAN CORPUSCULAR HGB CONC 33.7 g/dL (32.0-36.0); MEAN CORPUSCULAR VOLUME 90.5 fL (83.0-99.0); MEAN PLATELET VOLUME 9.4 fL (9.4-12.3); MONOCYTES ABSOLUTE AUTO 0.69 K/uL (0.00-0.80); MONOCYTES PERCENT AUTO 8.3 % (0.0-8.0); NEUTROPHILS PERCENT AUTO 76.1 % (41.0-71.0); PLATELET COUNT,PLT 271 K/uL (150-400); WHITE BLOOD CELL COUNT,WBC 8.28 K/uL (3.9-11.3)
[2024-09-04 13:08] LABS: A/G RATIO 1.3 (0.9-1.6); ALBUMIN 3.6 g/dL (3.4-5.0); CALCIUM 9.5 mg/dL (8.5-10.1); CREATININE 0.9 mg/dL (0.6-1.0); EST CRCL DRUG DOSING (CG) 31.53 mL/min; POTASSIUM,K 3.4 mmol/L (3.5-5.1); PROTEIN TOTAL,TP 6.4 g/dL (6.4-8.2)
[2024-09-04] MEDS: LORazepam 2 MG/ML SDV IM ONE (13:27)
[2024-09-04 14:39] VITALS: BP 129/69; PULSE 88
== END 2024-09-04 14:39 | disposition home or self-care (01) ==
LOC: MW.ED 11:45
DX: F41.1 Generalized anxiety disorder (principal); S43.402A Unspecified sprain of left shoulder joint, initial encounter; I11.0 Hypertensive heart disease with heart failure; I50.9 Heart failure, unspecified; I25.2 Old myocardial infarction; M19.90 Unspecified osteoarthritis, unspecified site; Z90.89 Acquired absence of other organs; Z88.5 Allergy status to narcotic agent; Z88.2 Allergy status to sulfonamides; Z88.8 Allergy status to other drugs, medicaments and biological substances; Z79.82 Long term (current) use of aspirin; Z79.52 Long term (current) use of systemic steroids; Z79.899 Other long term (current) drug therapy; Z75.8 Other problems related to medical facilities and other health care; W19.XXXA Unspecified fall, initial encounter
CPT/HCPCS: 36415; 71046; 80053; 83880; 84484; 85025; 93005; 96374; 99285; J3360

== ENCOUNTER 2024-09-20 18:33 | Emergency (ER) | payer MEDICARE, OTHER ==
[2024-09-20] MEDS: Morphine 4 MG/ML Syringe IVPUSH STA (20:04)
[2024-09-20] MEDS: Propofol 200 MG/20 ML SDV IVPUSH ONE (20:29)
[2024-09-20 22:32] VITALS: BP 174/94; PULSE 101
== END 2024-09-20 22:25 | disposition home or self-care (01) ==
LOC: MW.ED 18:33
DX: S43.014A Anterior dislocation of right humerus, initial encounter (principal); S42.131A Displaced fracture of coracoid process, right shoulder, initial encounter for closed fracture; I25.2 Old myocardial infarction; I11.0 Hypertensive heart disease with heart failure; I50.9 Heart failure, unspecified; M19.90 Unspecified osteoarthritis, unspecified site; Z90.49 Acquired absence of other specified parts of digestive tract; Z88.5 Allergy status to narcotic agent; Z88.2 Allergy status to sulfonamides; Z88.8 Allergy status to other drugs, medicaments and biological substances; Z79.82 Long term (current) use of aspirin; Z79.52 Long term (current) use of systemic steroids; Z79.899 Other long term (current) drug therapy
CPT/HCPCS: 23650; 73030; 73200; 96374; 99284; J2270; J2704

== ENCOUNTER 2025-04-12 13:58 | Inpatient (IN) | payer MEDICARE ==
[2025-04-12] MEDS ORDERED: Sodium Chloride 0.9% 20 ML SDV IV PRN (14:09)
[2025-04-12] MEDS ORDERED: Sodium Chloride 0.9% 2.5 ML Syringe FLUSH PRN (14:09)
[2025-04-12] MEDS ORDERED: Sodium Chloride 0.9% 10 ML Syringe FLUSH PRN (14:09)
[2025-04-12 14:25] LABS: BASE EXCESS ARTERIAL 3.4 (-2.0-3.0); BICARBONATE,ARTERIAL 27 mEq/L (21-28); PCO2 ARTERIAL 36 mmHG (35-45); PO2 ARTERIAL 79 mmHG (83-108)
[2025-04-12] MEDS: Amiodarone 150 MG/100 ML 100 ML IV ONE (15:02)
[2025-04-12] MEDS: cefTRIAXone 1 GM in Sodium Chloride 0.9% 50 ML IV ONE (15:47)
[2025-04-12] MEDS: cefTRIAXone 1 GM in Water For Injection, Sterile 10 ML IV ONE (15:48)
[2025-04-12 15:52] LABS: BASOPHILS ABSOLUTE AUTO 0.03 K/uL (0.00-0.20); BASOPHILS PERCENT AUTO 0.2 % (0.0-1.0); EOSINOPHILS ABSOLUTE AUTO 0.02 K/uL (0.00-0.45); EOSINOPHILS PERCENT AUTO 0.1 % (0.0-6.0); HEMATOCRIT 37.7 % (37.0-47.0); HEMOGLOBIN 12.3 g/dL (12.0-16.0); IMMATURE GRAN ABSOLUTE AUTO 0.19 K/uL (0.00-0.05); IMMATURE GRAN PERCENT AUTO 1.3 % (0.0-0.4); LYMPHOCYTES ABSOLUTE AUTO 0.55 K/uL (1.00-4.80); LYMPHOCYTES PERCENT AUTO 3.8 % (24.0-44.0); MEAN CORPUSCULAR HEMOGLOBIN 29.9 pg (28.0-32.0); MEAN CORPUSCULAR HGB CONC 32.6 g/dL (32.0-36.0); MEAN CORPUSCULAR VOLUME 91.5 fL (83.0-99.0); MEAN PLATELET VOLUME 9.4 fL (9.4-12.3); MONOCYTES ABSOLUTE AUTO 0.83 K/uL (0.00-0.80); MONOCYTES PERCENT AUTO 5.7 % (0.0-8.0); NEUTROPHILS ABSOLUTE AUTO 13.04 K/uL (1.80-7.70); NEUTROPHILS PERCENT AUTO 88.9 % (41.0-71.0); PLATELET COUNT,PLT 241 K/uL (150-400); RED BLOOD CELL COUNT 4.12 M/uL (4.10-5.30); WHITE BLOOD CELL COUNT,WBC 14.66 K/uL (3.9-11.3)
[2025-04-12 16:02] LABS: INR 1.17 (0.86-1.11); PTT,PARTIAL THROMBOPLSTIN TIME 23.4 SEC (23.9-30.7)
[2025-04-12 16:28] LABS: A/G RATIO 1.3 (0.9-1.6); ALANINE AMINOTRANSFERASE,ALT 23 IU/L (14-63); ALBUMIN 3.3 g/dL (3.4-5.0); ALKALINE PHOSPHATASE 66 U/L (46-116); ASPARTATE AMNIOTRANSFERASE,AST 35 IU/L (15-37); BILIRUBIN TOTAL 0.7 mg/dL (0.2-1.0); BLOOD UREA NITROGEN,BUN 27 mg/dL (7.0-18.0); CALCIUM 9.1 mg/dL (8.5-10.1); CARBON DIOXIDE,CO2 30.7 mmol/L (21.0-32.0); CHLORIDE,CL 101 mmol/L (98-107); CREATINE KINASE,CK 211 U/L (26-308); GLUCOSE RANDOM 145 mg/dL (74-106); POTASSIUM,K 3.9 mmol/L (3.5-5.1); PRO B-TYPE NATRIUR PEPT,BNPPRO 8798 pg/mL (0-450); PROTEIN TOTAL,TP 5.9 g/dL (6.4-8.2); SODIUM,NA 139 mmol/L (136-145)
[2025-04-12 16:33] LABS: ESTIMATED GFR 55 mL/min (>60)
[2025-04-12 16:34] LABS: ETHANOL BLOOD MEDICAL < 3.0 mg/dL
[2025-04-12 16:40] LABS: APPEARANCE,URINE CLEAR; BILIRUBIN,URINE NEGATIVE (NEGATIVE); COLOR,URINE YELLOW; GLUCOSE,URINE NEGATIVE (NEGATIVE); KETONES,URINE NEGATIVE (NEGATIVE); LEUKOCYTE ESTERASE,URINE NEGATIVE (NEGATIVE); NITRITE,URINE NEGATIVE (NEGATIVE); OCCULT BLOOD,URINE TRACE-LYSED (NEGATIVE); PH,URINE 5.5 (5.0-8.0); PROTEIN,URINE NEGATIVE (NEGATIVE); UROBILINOGEN,URINE 0.2 EU/dL (<2.0)
[2025-04-12 16:50] LABS: AMPHETAMINES SCREEN, URINE NEGATIVE (CUTOFF=500); BARBITURATE SCREEN,URINE NEGATIVE (CUTOFF=200); BENZODIAZEPINES SCREEN,URINE NEGATIVE (CUTOFF=150); BUPRENORPHINE SCREEN,URINE NEGATIVE (CUTOFF=10); METHADONE SCREEN, URINE NEGATIVE (CUTOFF=200); METHAMPHETAMINES SCREEN, URINE NEGATIVE (CUTOFF=500); OXYCODONE SCREEN,URINE NEGATIVE (CUT0FF=100); PCP SCREEN,URINE NEGATIVE (CUTOFF=25); THC SCREEN,URINE 20 NG/ML NEGATIVE (CUTOFF=50)
[2025-04-12 16:56] LABS: BACTERIA,URINE FEW (NEGATIVE); MUCUS,URINE NOT SEEN (NONE-MOD); SQUAMOUS EPITHELIAL CELLS,UR FEW; WBC,URINE 0-2 (0-5/HPF)
[2025-04-12] MEDS: Heparin Sodium/0.45% NaCl 25,000 UNITS/250 ML BAG IV SCH (17:28)
[2025-04-12] MEDS: Aspirin 325 MG Tab PO ONE (17:30)
[2025-04-12] MEDS: Clopidogrel 75 MG Tab PO ONE (17:30)
[2025-04-12] MEDS: Amiodarone 360 MG/200 ML 360 MG/200 ML BAG IV ONE (19:33)
[2025-04-12] MEDS: Furosemide 20 MG Tab PO SCH (20:12)
[2025-04-12] MEDS: Metoprolol Tartrate 25 MG Tab PO SCH (20:12)
[2025-04-12] MEDS: Doxycycline 100 MG in Sodium Chloride 0.9% 100 ML IV SCH (20:26)
[2025-04-13] MEDS: Amiodarone 360 MG/200 ML 540 MG/300 ML BAG IV ONE (01:19)
[2025-04-13] MEDS: Heparin Sodium 5,000 Units/ML Vial IVPUSH ONE ×2 (01:45→20:58)
[2025-04-13 05:48] LABS: BASOPHILS ABSOLUTE AUTO 0.02 K/uL (0.00-0.20); BASOPHILS PERCENT AUTO 0.2 % (0.0-1.0); EOSINOPHILS ABSOLUTE AUTO 0.01 K/uL (0.00-0.45); EOSINOPHILS PERCENT AUTO 0.1 % (0.0-6.0); HEMATOCRIT 37.4 % (37.0-47.0); HEMOGLOBIN 12.4 g/dL (12.0-16.0); IMMATURE GRAN ABSOLUTE AUTO 0.03 K/uL (0.00-0.05); IMMATURE GRAN PERCENT AUTO 0.3 % (0.0-0.4); LYMPHOCYTES ABSOLUTE AUTO 1.58 K/uL (1.00-4.80); LYMPHOCYTES PERCENT AUTO 13.5 % (24.0-44.0); MEAN CORPUSCULAR HGB CONC 33.2 g/dL (32.0-36.0); MEAN CORPUSCULAR VOLUME 90.6 fL (83.0-99.0); MEAN PLATELET VOLUME 9.5 fL (9.4-12.3); MONOCYTES ABSOLUTE AUTO 1.13 K/uL (0.00-0.80); MONOCYTES PERCENT AUTO 9.6 % (0.0-8.0); NEUTROPHILS ABSOLUTE AUTO 8.94 K/uL (1.80-7.70); NEUTROPHILS PERCENT AUTO 76.3 % (41.0-71.0); PLATELET COUNT,PLT 235 K/uL (150-400); RED BLOOD CELL COUNT 4.13 M/uL (4.10-5.30); WHITE BLOOD CELL COUNT,WBC 11.71 K/uL (3.9-11.3)
[2025-04-13 06:44] LABS: A/G RATIO 1.2 (0.9-1.6); ALBUMIN 3.1 g/dL (3.4-5.0); BILIRUBIN TOTAL 0.6 mg/dL (0.2-1.0); CARBON DIOXIDE,CO2 24.2 mmol/L (21.0-32.0); CREATININE 0.9 mg/dL (0.6-1.0); EST CRCL DRUG DOSING (CG) 37.19 mL/min; POTASSIUM,K 3.7 mmol/L (3.5-5.1); PROTEIN TOTAL,TP 5.7 g/dL (6.4-8.2)
[2025-04-13] MEDS: Potassium Chloride 20 MEQ Tab.ER PO ONE (08:37)
[2025-04-13] MEDS: Aspirin 325 MG Tab.EC PO SCH (08:37)
[2025-04-13] MEDS: Clopidogrel 75 MG Tab PO SCH (08:37)
[2025-04-13] MEDS: Furosemide 40 MG Tab PO SCH (12:04)
[2025-04-13] MEDS: Amiodarone 360 MG/200 ML 540 MG/300 ML BAG IV SCH (14:14)
[2025-04-13] MEDS: cefTRIAXone 1 GM in Water For Injection, Sterile 10 ML IVPUSH SCH (14:18)
[2025-04-13] MEDS: Metoprolol Tartrate 25 MG Tab PO SCH (20:22)
[2025-04-14 05:56] LABS: BASOPHILS ABSOLUTE AUTO 0.04 K/uL (0.00-0.20); BASOPHILS PERCENT AUTO 0.4 % (0.0-1.0); EOSINOPHILS ABSOLUTE AUTO 0.08 K/uL (0.00-0.45); EOSINOPHILS PERCENT AUTO 0.8 % (0.0-6.0); HEMATOCRIT 36.9 % (37.0-47.0); HEMOGLOBIN 12.2 g/dL (12.0-16.0); IMMATURE GRAN ABSOLUTE AUTO 0.02 K/uL (0.00-0.05); IMMATURE GRAN PERCENT AUTO 0.2 % (0.0-0.4); LYMPHOCYTES ABSOLUTE AUTO 1.42 K/uL (1.00-4.80); LYMPHOCYTES PERCENT AUTO 14.9 % (24.0-44.0); MEAN CORPUSCULAR HEMOGLOBIN 30.3 pg (28.0-32.0); MEAN CORPUSCULAR HGB CONC 33.1 g/dL (32.0-36.0); MEAN CORPUSCULAR VOLUME 91.6 fL (83.0-99.0); MEAN PLATELET VOLUME 9.4 fL (9.4-12.3); MONOCYTES ABSOLUTE AUTO 0.93 K/uL (0.00-0.80); MONOCYTES PERCENT AUTO 9.8 % (0.0-8.0); NEUTROPHILS ABSOLUTE AUTO 7.01 K/uL (1.80-7.70); NEUTROPHILS PERCENT AUTO 73.9 % (41.0-71.0); PLATELET COUNT,PLT 222 K/uL (150-400); RED BLOOD CELL COUNT 4.03 M/uL (4.10-5.30)
[2025-04-14 06:22] LABS: A/G RATIO 1.2 (0.9-1.6); ALBUMIN 2.9 g/dL (3.4-5.0); BILIRUBIN TOTAL 0.6 mg/dL (0.2-1.0); CALCIUM 8.6 mg/dL (8.5-10.1); CARBON DIOXIDE,CO2 28.7 mmol/L (21.0-32.0); CREATININE 0.9 mg/dL (0.6-1.0); EST CRCL DRUG DOSING (CG) 33.79 mL/min; MAGNESIUM 1.8 mg/dL (1.8-2.4); POTASSIUM,K 3.5 mmol/L (3.5-5.1); PROTEIN TOTAL,TP 5.4 g/dL (6.4-8.2)
[2025-04-14] MEDS: Amiodarone 200 MG Tab PO SCH (12:06)
[2025-04-15 04:03] LABS: BASOPHILS ABSOLUTE AUTO 0.02 K/uL (0.00-0.20); BASOPHILS PERCENT AUTO 0.3 % (0.0-1.0); EOSINOPHILS ABSOLUTE AUTO 0.15 K/uL (0.00-0.45); EOSINOPHILS PERCENT AUTO 2.1 % (0.0-6.0); HEMATOCRIT 35.5 % (37.0-47.0); HEMOGLOBIN 11.4 g/dL (12.0-16.0); IMMATURE GRAN ABSOLUTE AUTO 0.03 K/uL (0.00-0.05); IMMATURE GRAN PERCENT AUTO 0.4 % (0.0-0.4); LYMPHOCYTES ABSOLUTE AUTO 1.01 K/uL (1.00-4.80); LYMPHOCYTES PERCENT AUTO 14.1 % (24.0-44.0); MEAN CORPUSCULAR HEMOGLOBIN 29.4 pg (28.0-32.0); MEAN CORPUSCULAR HGB CONC 32.1 g/dL (32.0-36.0); MEAN CORPUSCULAR VOLUME 91.5 fL (83.0-99.0); MEAN PLATELET VOLUME 9.3 fL (9.4-12.3); MONOCYTES ABSOLUTE AUTO 0.89 K/uL (0.00-0.80); MONOCYTES PERCENT AUTO 12.4 % (0.0-8.0); NEUTROPHILS ABSOLUTE AUTO 5.07 K/uL (1.80-7.70); NEUTROPHILS PERCENT AUTO 70.7 % (41.0-71.0); PLATELET COUNT,PLT 201 K/uL (150-400); RED BLOOD CELL COUNT 3.88 M/uL (4.10-5.30); WHITE BLOOD CELL COUNT,WBC 7.17 K/uL (3.9-11.3)
[2025-04-15 04:29] LABS: A/G RATIO 1.1 (0.9-1.6); ALBUMIN 2.7 g/dL (3.4-5.0); BILIRUBIN TOTAL 0.8 mg/dL (0.2-1.0); CALCIUM 8.4 mg/dL (8.5-10.1); CARBON DIOXIDE,CO2 28.7 mmol/L (21.0-32.0); EST CRCL DRUG DOSING (CG) 30.41 mL/min; MAGNESIUM 1.6 mg/dL (1.8-2.4); PHOSPHORUS 2.9 mg/dL (2.6-4.7); PROTEIN TOTAL,TP 5.2 g/dL (6.4-8.2)
[2025-04-15] MEDS ORDERED: Sodium Chloride 0.9% 10 ML Syringe FLUSH PRN (08:19)
[2025-04-15] MEDS ORDERED: Sodium Chloride 0.9% 2.5 ML Syringe FLUSH PRN (08:19)
[2025-04-15] MEDS: Potassium Chloride 20 MEQ Tab.ER PO ONE (09:00)
[2025-04-15] MEDS: Magnesium Sulfate 2 GM/50 mL 2 GM in Premix Bag 1 BAG IV ONE (09:28)
[2025-04-15] MEDS: Sodium Chloride 0.9% 500 ML IV ONE (09:28)
[2025-04-15] MEDS: Potassium Chloride 10 MEQ in Premix Bag 1 BAG IV SCH (09:29)
[2025-04-16 06:11] LABS: BASOPHILS ABSOLUTE AUTO 0.01 K/uL (0.00-0.20); BASOPHILS PERCENT AUTO 0.1 % (0.0-1.0); EOSINOPHILS ABSOLUTE AUTO 0.15 K/uL (0.00-0.45); EOSINOPHILS PERCENT AUTO 2.2 % (0.0-6.0); HEMATOCRIT 37.7 % (37.0-47.0); HEMOGLOBIN 12.1 g/dL (12.0-16.0); IMMATURE GRAN ABSOLUTE AUTO 0.01 K/uL (0.00-0.05); IMMATURE GRAN PERCENT AUTO 0.1 % (0.0-0.4); LYMPHOCYTES ABSOLUTE AUTO 0.84 K/uL (1.00-4.80); LYMPHOCYTES PERCENT AUTO 12.1 % (24.0-44.0); MEAN CORPUSCULAR HEMOGLOBIN 29.2 pg (28.0-32.0); MEAN CORPUSCULAR HGB CONC 32.1 g/dL (32.0-36.0); MEAN CORPUSCULAR VOLUME 90.8 fL (83.0-99.0); MEAN PLATELET VOLUME 9.5 fL (9.4-12.3); MONOCYTES ABSOLUTE AUTO 0.71 K/uL (0.00-0.80); MONOCYTES PERCENT AUTO 10.2 % (0.0-8.0); NEUTROPHILS ABSOLUTE AUTO 5.22 K/uL (1.80-7.70); NEUTROPHILS PERCENT AUTO 75.3 % (41.0-71.0); PLATELET COUNT,PLT 186 K/uL (150-400); RED BLOOD CELL COUNT 4.15 M/uL (4.10-5.30); WHITE BLOOD CELL COUNT,WBC 6.94 K/uL (3.9-11.3)
[2025-04-16 06:36] LABS: CALCIUM 8.3 mg/dL (8.5-10.1); CARBON DIOXIDE,CO2 25.6 mmol/L (21.0-32.0); CREATININE 0.8 mg/dL (0.6-1.0); EST CRCL DRUG DOSING (CG) 37.15 mL/min; MAGNESIUM 1.9 mg/dL (1.8-2.4); POTASSIUM,K 3.3 mmol/L (3.5-5.1)
[2025-04-16] MEDS: Potassium Chloride 20 MEQ Tab.ER PO ONE (08:47)
[2025-04-17 06:08] LABS: BASOPHILS ABSOLUTE AUTO 0.02 K/uL (0.00-0.20); BASOPHILS PERCENT AUTO 0.2 % (0.0-1.0); EOSINOPHILS ABSOLUTE AUTO 0.12 K/uL (0.00-0.45); EOSINOPHILS PERCENT AUTO 1.5 % (0.0-6.0); HEMATOCRIT 38.9 % (37.0-47.0); HEMOGLOBIN 12.4 g/dL (12.0-16.0); IMMATURE GRAN ABSOLUTE AUTO 0.02 K/uL (0.00-0.05); IMMATURE GRAN PERCENT AUTO 0.2 % (0.0-0.4); LYMPHOCYTES ABSOLUTE AUTO 0.88 K/uL (1.00-4.80); LYMPHOCYTES PERCENT AUTO 10.9 % (24.0-44.0); MEAN CORPUSCULAR HEMOGLOBIN 29.2 pg (28.0-32.0); MEAN CORPUSCULAR HGB CONC 31.9 g/dL (32.0-36.0); MEAN CORPUSCULAR VOLUME 91.5 fL (83.0-99.0); MEAN PLATELET VOLUME 9.6 fL (9.4-12.3); MONOCYTES ABSOLUTE AUTO 0.81 K/uL (0.00-0.80); NEUTROPHILS ABSOLUTE AUTO 6.23 K/uL (1.80-7.70); NEUTROPHILS PERCENT AUTO 77.2 % (41.0-71.0); PLATELET COUNT,PLT 220 K/uL (150-400); RED BLOOD CELL COUNT 4.25 M/uL (4.10-5.30); WHITE BLOOD CELL COUNT,WBC 8.08 K/uL (3.9-11.3)
[2025-04-17 06:37] LABS: CALCIUM 8.8 mg/dL (8.5-10.1); CARBON DIOXIDE,CO2 24.4 mmol/L (21.0-32.0); CREATININE 0.9 mg/dL (0.6-1.0); EST CRCL DRUG DOSING (CG) 32.67 mL/min; MAGNESIUM 1.7 mg/dL (1.8-2.4); POTASSIUM,K 4.1 mmol/L (3.5-5.1)
[2025-04-18 05:34] LABS: BASOPHILS ABSOLUTE AUTO 0.04 K/uL (0.00-0.20); BASOPHILS PERCENT AUTO 0.5 % (0.0-1.0); EOSINOPHILS ABSOLUTE AUTO 0.11 K/uL (0.00-0.45); EOSINOPHILS PERCENT AUTO 1.3 % (0.0-6.0); HEMATOCRIT 38.6 % (37.0-47.0); HEMOGLOBIN 12.5 g/dL (12.0-16.0); IMMATURE GRAN ABSOLUTE AUTO 0.01 K/uL (0.00-0.05); IMMATURE GRAN PERCENT AUTO 0.1 % (0.0-0.4); LYMPHOCYTES ABSOLUTE AUTO 1.06 K/uL (1.00-4.80); MEAN CORPUSCULAR HEMOGLOBIN 29.7 pg (28.0-32.0); MEAN CORPUSCULAR HGB CONC 32.4 g/dL (32.0-36.0); MEAN CORPUSCULAR VOLUME 91.7 fL (83.0-99.0); MEAN PLATELET VOLUME 9.3 fL (9.4-12.3); MONOCYTES ABSOLUTE AUTO 0.89 K/uL (0.00-0.80); MONOCYTES PERCENT AUTO 10.9 % (0.0-8.0); NEUTROPHILS ABSOLUTE AUTO 6.04 K/uL (1.80-7.70); NEUTROPHILS PERCENT AUTO 74.2 % (41.0-71.0); PLATELET COUNT,PLT 208 K/uL (150-400); RED BLOOD CELL COUNT 4.21 M/uL (4.10-5.30); WHITE BLOOD CELL COUNT,WBC 8.15 K/uL (3.9-11.3)
[2025-04-18 06:02] LABS: CARBON DIOXIDE,CO2 26.8 mmol/L (21.0-32.0); EST CRCL DRUG DOSING (CG) 29.41 mL/min; MAGNESIUM 1.8 mg/dL (1.8-2.4); POTASSIUM,K 3.9 mmol/L (3.5-5.1)
[2025-04-21 08:29] LABS: BASOPHILS ABSOLUTE AUTO 0.02 K/uL (0.00-0.20); BASOPHILS PERCENT AUTO 0.2 % (0.0-1.0); EOSINOPHILS ABSOLUTE AUTO 0.12 K/uL (0.00-0.45); EOSINOPHILS PERCENT AUTO 1.4 % (0.0-6.0); HEMOGLOBIN 13.1 g/dL (12.0-16.0); IMMATURE GRAN ABSOLUTE AUTO 0.02 K/uL (0.00-0.05); IMMATURE GRAN PERCENT AUTO 0.2 % (0.0-0.4); LYMPHOCYTES ABSOLUTE AUTO 1.12 K/uL (1.00-4.80); LYMPHOCYTES PERCENT AUTO 13.4 % (24.0-44.0); MEAN CORPUSCULAR HEMOGLOBIN 30.3 pg (28.0-32.0); MEAN CORPUSCULAR HGB CONC 33.6 g/dL (32.0-36.0); MEAN CORPUSCULAR VOLUME 90.1 fL (83.0-99.0); MEAN PLATELET VOLUME 9.3 fL (9.4-12.3); MONOCYTES ABSOLUTE AUTO 0.85 K/uL (0.00-0.80); MONOCYTES PERCENT AUTO 10.2 % (0.0-8.0); NEUTROPHILS ABSOLUTE AUTO 6.22 K/uL (1.80-7.70); NEUTROPHILS PERCENT AUTO 74.6 % (41.0-71.0); PLATELET COUNT,PLT 241 K/uL (150-400); RED BLOOD CELL COUNT 4.33 M/uL (4.10-5.30); WHITE BLOOD CELL COUNT,WBC 8.35 K/uL (3.9-11.3)
[2025-04-21 08:43] LABS: CALCIUM 8.5 mg/dL (8.5-10.1); CARBON DIOXIDE,CO2 31.3 mmol/L (21.0-32.0); EST CRCL DRUG DOSING (CG) 28.16 mL/min; POTASSIUM,K 3.9 mmol/L (3.5-5.1)
[2025-04-21] MEDS: Morphine 2 MG/ML SYRINGE IVPUSH PRN (12:16)
[2025-04-21] MEDS ORDERED: LORazepam 2 MG/ML SDV IVPUSH PRN (18:39)
[2025-04-21] MEDS ORDERED: Atropine Sulfate 1% Ophth 2 ML Drops SL PRN (20:36)
[2025-04-21] MEDS ORDERED: Morphine 10 MG/0.5 ML Oral Syringe PO PRN (20:51)
[2025-04-21] MEDS ORDERED: LORazepam ORAL Concentrate 1MG/0.5ML U/D SL PRN (20:51)
[2025-04-21] MEDS: Morphine 2 MG/ML SYRINGE IVPUSH SCH (23:44)
[2025-04-21] MEDS: LORazepam 2 MG/ML SDV IVPUSH SCH (23:44)
[2025-04-23] MEDS: Scopalamine 1mg/3day Transdermal Patch TRDERM PRN (06:25)
[2025-04-23 20:45] VITALS: BP 113/59; PULSE 95
== END 2025-04-24 05:00 | disposition expired ==
LOC: MW.ED 13:58 → MW.MS 17:31 → MW.ICU 18:30 → MW.MS 04-16 11:41
PROVIDERS: ADMIT Internal Medicine; ATTEND Internal Medicine
PROC: 4A033R1 Measurement of Arterial Saturation, Peripheral, Percutaneous Approach (ICD-10-PCS; principal; 2025-04-12)
DX: I11.0 Hypertensive heart disease with heart failure (principal); G93.41 Metabolic encephalopathy; R41.82 Altered mental status, unspecified; I21.9 Acute myocardial infarction, unspecified; I21.4 Non-ST elevation (NSTEMI) myocardial infarction; I50.9 Heart failure, unspecified; J18.9 Pneumonia, unspecified organism; I50.23 Acute on chronic systolic (congestive) heart failure; J96.01 Acute respiratory failure with hypoxia; I61.9 Nontraumatic intracerebral hemorrhage, unspecified; Z51.5 Encounter for palliative care; Z66 Do not resuscitate; H54.7 Unspecified visual loss; I48.91 Unspecified atrial fibrillation; M06.9 Rheumatoid arthritis, unspecified; M19.90 Unspecified osteoarthritis, unspecified site; D64.9 Anemia, unspecified; E86.0 Dehydration; I25.10 Atherosclerotic heart disease of native coronary artery without angina pectoris; Z88.8 Allergy status to other drugs, medicaments and biological substances; Z88.2 Allergy status to sulfonamides; Z98.49 Cataract extraction status, unspecified eye; Z79.899 Other long term (current) drug therapy; I25.2 Old myocardial infarction; Z98.890 Other specified postprocedural states; Z90.49 Acquired absence of other specified parts of digestive tract; Z95.5 Presence of coronary angioplasty implant and graft; Z79.82 Long term (current) use of aspirin; Z95.0 Presence of cardiac pacemaker; Z88.5 Allergy status to narcotic agent; Z90.89 Acquired absence of other organs
CPT/HCPCS: 36415; 36600; 70450; 71045; 72125; 72170; 80053; 80305; 80307; 81001; 82550; 82803; 83735; 83880; 84484; 85025; 85610; 85730; 87040; 93005; 96374; 96375; 99285; A9270 ×2; J0283; J0696; J1644; 80048; 84100; 92507-GN; 92523-GN-52; 92526-GN; 92610-GN; 93010; 93306; 97110-GO; 97110-GP; 97162-GP; 97165-GO; 97530-GP; 99223; 99231; 99232; 99233; 99238; J2060; J2270; J3475; J3480; J3490; J7040